=== PATIENT | male | born 1975 | race Caucasian/White ===

== ENCOUNTER → 2020-09-25 14:49 | Outpatient (CLI) | payer OTHER, SELFPAY ==
[2020-09-25 18:30] LABS: Vitamin D,25 Hydroxy 16.9 ng/mL
[2020-09-25 18:48] LABS: Anion Gap 9 (5-15); BUN 16 mg/dL (7-18); BUN/Creat Ratio 14.4 RATIO (10-20); Calcium,Total 8.9 mg/dL (8.5-10.1); Chloride 101 mmol/L (98-107); Cholesterol 241 mg/dL (200); Creatinine, Serum 1.11 mg/dL (0.70-1.30); EST Glomerular Filtration Rate 76 mL/min (>60); Est Glom Filt Rate - Afr Amer 92 mL/min (>60); Glucose 105 mg/dL (74-106); High Density Lipoprotein 41 mg/dL; Potassium 4.2 mmol/L (3.5-5.1); Sodium Level 136 mmol/L (136-145); Thyroid Stim Hormone (TSH) 5.62 uIU/mL (0.358-3.74); Triglycerides 353 mg/dL; Very Low Density Lipoprotein 71 mg/dL (5-40)
== END ==
PROVIDERS: Visit Provider Family Medicine
DX: Z00.00 Encounter for general adult medical examination without abnormal findings (principal)
CPT/HCPCS: 36415; 80048; 80061; 82306; 84403; 84443

== ENCOUNTER → 2020-11-06 15:14 | Outpatient (CLI) | payer OTHER, SELFPAY ==
[2020-11-06 17:45] LABS: T3 Total - Triiodothyronine 1.24 ng/mL (0.6-1.81)
[2020-11-06 17:53] LABS: AST(SGOT) 29 U/L (15-37); Alanine Aminotransfer ALT/SGPT 56 U/L (16-61); Albumin, Serum 3.9 g/dL (3.2-5.0); Alkaline Phosphatase 100 U/L (45-117); Anion Gap 9 (5-15); BUN 11 mg/dL (7-18); BUN/Creat Ratio 10.5 RATIO (10-20); Chloride 102 mmol/L (98-107); Cholesterol 236 mg/dL (200); Creatinine, Serum 1.05 mg/dL (0.70-1.30); EST Glomerular Filtration Rate 81 mL/min (>60); Est Glom Filt Rate - Afr Amer 98 mL/min (>60); Glucose 116 mg/dL (74-106); High Density Lipoprotein 48 mg/dL; Potassium 3.9 mmol/L (3.5-5.1); Protein, Total 7.9 g/dL (6.4-8.2); Sodium Level 135 mmol/L (136-145); T4 Free Direct 1.22 ng/dL (0.76-1.46); Thyroid Stim Hormone (TSH) 1.48 uIU/mL (0.358-3.74); Triglycerides 199 mg/dL; Very Low Density Lipoprotein 40 mg/dL (5-40)
[2020-11-07 15:38] LABS: Free T3 3.3 pg/mL (2.18-3.98)
== END ==
PROVIDERS: Visit Provider Family Medicine
DX: E78.5 Hyperlipidemia, unspecified (principal); E03.9 Hypothyroidism, unspecified
CPT/HCPCS: 36415; 80053; 80061; 84439; 84443; 84480; 84481

== ENCOUNTER 2021-05-08 17:50 | Emergency (ER) | payer OTHER, SELFPAY ==
[2021-05-08 17:53] VITALS: BP 123/107; PULSE 91; RESP 18; TEMP 36.1; O2SAT 100; BMI 32.9
--- NOTE | 2021-05-08 18:25 | ED.RN ---
pt yelling and up in room ripping monitor off. 2 uniform patrol police officer at bedside and full charge bookkeeper aware. pt yelling out have to fucking pee
--- NOTE | 2021-05-08 18:27 | ED.RN ---
pt taking ccollar off and charge master specialist and educated on need to keep collar on for protection or possibility of paralized pt calling nurse a bitch and being belligerent with police officers at bedside
--- NOTE | 2021-05-08 18:59 | CT_ITS ---
STUDY: CT Spine Cervical W/O Contrast Injection 05/08/2021 7:34 PM REASON FOR EXAM: Male, 46 years old. NECK PAIN TECHNIQUE: High resolution transaxial imaging was performed without intravenous administration of contrast material. Sagittal and coronal images were reconstructed. Individualized dose optimization techniques were used for this CT. COMPARISON: None FINDINGS: Normal craniovertebral junction. Normal anterior atlantoaxial articulation. Normal odontoid process. Normal cervical lordosis. Normal vertebral bodies and posterior osseous elements. C2-3: Normal endplates. Normal disc height and morphology. Normal central canal and intervertebral neuroforamina. C3-4: Normal endplates. Normal disc height and morphology. Normal central canal and intervertebral neuroforamina. C4-5: Normal endplates. Normal disc height and morphology. Normal central canal and intervertebral neuroforamina. C5-6: Normal endplates. Normal disc height and morphology. Normal central canal and intervertebral neuroforamina. C6-7: Loss of intervertebral disc height. There is endplate spondylosis of the vertebral body. Normal central canal and intervertebral neuroforamina. There is bilateral facet arthropathy. C7-T1: Normal endplates. Normal disc height and morphology. Normal central canal and intervertebral neuroforamina. Normal visualized soft tissue structures. IMPRESSION: (NOT LISTED IN ORDER OF SIGNIFICANCE) There are no acute findings. Mild degenerative findings at C6-7. Electronically Signed: Bar Perez MD at 19:35 EST , CT/Spine Cervical without Contras
--- NOTE | 2021-05-08 18:59 | CT_ITS ---
STUDY: CT BRAIN WITHOUT CONTRAST REASON FOR EXAM: Male, 46 years old. HEAD AND NECK PAIN ETOH Injury/Pain TECHNIQUE: Transaxial CT imaging of the brain was performed without administration of intravenous contrast material. Individualized dose optimization techniques were used for this CT. COMPARISON: None FINDINGS: Normal calvarium. Normal soft tissues. Normal size ventricles and extra-axial spaces for the patient''s age. Normal white matter tracts of the cerebral hemispheres. Normal basal ganglia and thalami. Normal brainstem. Normal cerebellum. There is no intracranial hemorrhage. There are no findings of an acute ischemic infarction. Sphenoid sinus disease ASPECTS 10 CT/Brain/Head without Contrast IMPRESSION: There are no acute intracranial findings. Electronically Signed: Bar Perez MD at 19:34 EST ,
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
--- NOTE | 2021-05-08 19:45 | ED.RN ---
Patient request for pain med and okay with PO or IM since he took his IV out. Requested from Dr Maharaj. Due to bzo and etoh in his system, we are not medicating him for pain at this time, per Dr Maharaj.
--- NOTE | 2021-05-08 19:58 | NURSING ---
Yuo Mane can be reached for a ride at [phone]
[2021-05-08 20:58] VITALS: BP 153/100; PULSE 74; RESP 22; O2SAT 97
[2021-05-08] MEDS: Ibuprofen 400 MG Tablet PO (21:03)
== END 2021-05-08 21:10 | disposition home or self-care (01) ==
PROVIDERS: Emergency Provider Emergency Medicine; PCP Family Medicine; Visit Provider Emergency Medicine
DX: S16.1XXA Strain of muscle, fascia and tendon at neck level, initial encounter (principal); V49.88XA Car occupant (driver) (passenger) injured in other specified transport accidents, initial encounter; Y93.9 Activity, unspecified; Y92.9 Unspecified place or not applicable; S09.90XA Unspecified injury of head, initial encounter
CPT/HCPCS: 70450; 72125; 99283; A4216

== ENCOUNTER → 2022-04-06 | Outpatient (CLI) | payer MEDICAID, SELFPAY ==
[2022-04-06 13:40] LABS: Absolute Lymphocyte Count 2.64 X10^3/uL (0.83-4.51); Absolute Neutrophil Count 4.1 X10^3/uL (2.0-7.7); Basophil# 0.08 X10^3/uL; Basophil% 1.1 % (0-1); Eosinophil# 0.11 X10^3/uL; Eosinophils% 1.5 % (0-5); Hematocrit 49.3 % (40-54); Hemoglobin 16.2 g/dL (13.0-16.5); Lymphocyte # 2.64 X10^3/ul (0.83-4.51); Lymphocyte % 34.9 % (19-41); Mean Corp Hgb Conc 32.9 g/dL (32-36); Mean Corpuscular Hgb 27.2 pg (27.0-32.0); Mean Corpuscular Volume 82.7 fL (80-94); Mean Platelet Vol. 9.3 fl (6.2-12.0); Monocyte% 7.9 % (0-10); NRBC Flagged by Analyzer 0 % (0-5); Neutrophil # 4.08 X10^3/uL (2.7-7.7); Neutrophil % 53.9 % (47-70); Platelet Count 416 K/mm3 (150-450); RBC Distribution Width CV 14.3 % (11.6-14.6); RBC Distribution Width SD 42.5 fl (35.1-43.9); Red Blood Count 5.96 M/mm3 (4.6-6.2); White Blood Count 7.6 K/mm3 (4.4-11.0)
[2022-04-06 13:59] LABS: Vitamin B12 482 pg/mL (211-911); Vitamin D,25 Hydroxy 17.8 ng/mL
[2022-04-06 14:13] LABS: ALB/GLOB Ratio 0.8 RATIO (0.9-2.4); AST(SGOT) 19 U/L (15-37); Alanine Aminotransfer ALT/SGPT 41 U/L (16-61); Albumin, Serum 3.7 g/dL (3.2-5.0); Alkaline Phosphatase 98 U/L (45-117); Anion Gap 8 (5-15); BUN 14 mg/dL (7-18); BUN/Creat Ratio 14.4 RATIO (10-20); Calcium,Total 9.1 mg/dL (8.5-10.1); Chloride 101 mmol/L (98-107); Cholesterol 246 mg/dL (200); Creatinine, Serum 0.97 mg/dL (0.70-1.30); EST Glomerular Filtration Rate 87 mL/min (>60); Est Glom Filt Rate - Afr Amer 106 mL/min (>60); Globulin 4.4 g/dL (2.2-4.2); Glucose 118 mg/dL (74-106); High Density Lipoprotein 40 mg/dL; Potassium 4.2 mmol/L (3.5-5.1); Protein, Total 8.1 g/dL (6.4-8.2); Sodium Level 136 mmol/L (136-145); T4 Free Direct 0.89 ng/dL (0.76-1.46); Thyroid Stim Hormone (TSH) 3.18 uIU/mL (0.358-3.74); Triglycerides 250 mg/dL; Very Low Density Lipoprotein 50 mg/dL (5-40)
== END | disposition home or self-care (01) ==
LOC: LAB 12:16
PROVIDERS: PCP Family Medicine; Visit Provider Registered Nurse
DX: F41.1 Generalized anxiety disorder (principal)
CPT/HCPCS: 36415; 80053; 80061; 82306; 82607; 82746; 83036; 84439; 84443; 85025

== ENCOUNTER → 2023-01-28 | Outpatient (CLI) | payer BC, SELFPAY ==
[2023-01-28 14:07] LABS: Vitamin D,25 Hydroxy 23.8 ng/mL
[2023-01-28 14:17] LABS: Anion Gap 6 (5-15); BUN 21 mg/dL (7-18); BUN/Creat Ratio 21.9 RATIO (10-20); Calcium,Total 9.1 mg/dL (8.5-10.1); Chloride 104 mmol/L (98-107); Cholesterol 197 mg/dL (200); Creatinine, Serum 0.96 mg/dL (0.70-1.30); EST Glomerular Filtration Rate 89 mL/min (>60); Est Glom Filt Rate - Afr Amer 107 mL/min (>60); Glucose 106 mg/dL (74-106); High Density Lipoprotein 42 mg/dL; Potassium 4.4 mmol/L (3.5-5.1); Sodium Level 135 mmol/L (136-145); Triglycerides 148 mg/dL; Very Low Density Lipoprotein 30 mg/dL (5-40)
== END | disposition home or self-care (01) ==
LOC: MFPLAB 10:37
PROVIDERS: PCP Family Medicine; Visit Provider Family Medicine
DX: Z00.00 Encounter for general adult medical examination without abnormal findings (principal); E55.9 Vitamin D deficiency, unspecified
CPT/HCPCS: 36415; 80048; 80061; 82306

== ENCOUNTER → 2023-04-21 | Outpatient (CLI) | payer BC, SELFPAY ==
--- OUTSIDE RECORDS SUMMARY | 2023-04-21 12:22 | XMS RPT_ITS | CCD ---
Author Name Unknown Address [address] [place] [address] Organization [facility] Results Test Name Value Interpretation Reference Range Facil ity Summary Purpose Family History No Family History Records FoundNo Family History Records FoundNo Family History Records Found Advance Directives No Advanced Directives Records FoundNo Advanced Directives Records FoundNo Advanced Directives Records Found Additional Source Comments (unrecognized sect ion and content) No Status Records FoundNo Status Records FoundNo Status Records Found INFORMATION SOURCE (unrecogn ized section and content) DATE CREATED AUTHOR AUTHOR'S ORGANIZ ATION 05/08/2020 [facility] DATE CREATED AUTHOR AUTHOR'S ORGANIZ ATION 05/10/2020 [employer] FOR RECORDS PERTAINING TO PATIENTS WHO ARE OR HAVE BEEN ENROLLED IN A CHEMICAL DEPENDENCY/SUBSTANCEABUSE PROGRAM, SOME INFORMATION MAY BE OMITTED. This clinical summary was aggregated from multiple sources. Caution should be exercised in using it in the provision of clinical care. This summary normalizes information from multiple sources, and as a consequence, information in this document may materially change the coding, format and clinical context of patient data. In addition, data may be omitted in some cases. CLINICAL DECISIONS SHOULD BE BASED ON THE PRIMARY CLINICAL RECORDS. [facility] [employer] [facility]. provides no warranty or guarantee of the accuracy or completeness of information in this document.
[2023-04-21 16:56] LABS: Free T3 3.3 pg/mL (2.18-3.98); T4 Free Direct 1.01 ng/dL (0.76-1.46); Thyroid Stim Hormone (TSH) 3.72 uIU/mL (0.358-3.74)
== END | disposition home or self-care (01) ==
LOC: MFPLAB 12:02
PROVIDERS: PCP Family Medicine; Visit Provider Family Medicine
DX: E03.9 Hypothyroidism, unspecified (principal)
CPT/HCPCS: 36415; 84439; 84443; 84481

== ENCOUNTER → 2024-05-23 | Outpatient (CLI) | payer BC, SELFPAY ==
[2024-05-23 13:15] LABS: Anion Gap 13 (5-15); BUN 16 mg/dL (4-19); BUN/Creat Ratio 18.8 RATIO (10-20); Calcium 9.4 mg/dL (7.6-11.0); Carbon Dioxide 20.2 mmol/L (22.0-29.0); Chloride 101 mmol/L (96-108); Cholesterol 193 mg/dL (<=200); Creatinine, Serum 0.9 mg/dL (0.8-1.3); EST Glomerular Filtration Rate 105 (>60); Free T3 3.3 pg/mL (2.18-3.98); Glucose 106 mg/dL (70-99); High Density Lipoprotein 37 mg/dL; Low Density Lipoprotein Calc. 122 mg/dL; Sodium Level 135 mmol/L (133-145); Triglycerides 169 mg/dL; Very Low Density Lipoprotein 34 mg/dL (5-40); cholesterol:hdl ratio screen 5.17
== END | disposition home or self-care (01) ==
LOC: MFPLAB 09:57
PROVIDERS: PCP Family Medicine; Referring Provider Family Medicine; Visit Provider Family Medicine
DX: Z00.00 Encounter for general adult medical examination without abnormal findings (principal); E03.9 Hypothyroidism, unspecified
CPT/HCPCS: 36415; 80048; 80061; 84439; 84443; 84481

== ENCOUNTER 2024-06-15 06:32 | Outpatient (CLI) | payer BC, SELFPAY ==
--- NOTE | 2024-06-15 06:35 | CT_ITS ---
PROCEDURE: LOW DOSE CT LUNG SCREENING 06/15/2024 REASON FOR EXAM: SMOKING ADDICTION. Lung cancer screening. 15 pack-year history. TECHNIQUE: Low Dose CT Lung screening without contrast. Coronal and Sagittal reconstruction series were provided. One or more dose reduction techniques were used (e.g., Automated exposure control, adjustment of the mA and/or kV according to patient size, use of iterative reconstruction technique). REFERENCE LINK: [employer] Lung-RADS RADIATION DOSE SUMMARY: DLP: 155.52 mGycm COMPARISON: None available. FINDINGS: Bones/soft tissues: There are moderate degenerative changes of the spine. Age- indeterminate probable chronic mild superior endplate compression of T7 and T11. A few old posterior right rib fracture deformities are present. No acute displaced rib fractures. Upper abdomen: No gross abnormality of the upper abdominal structures is demonstrated, although evaluation is significantly limited on this study. Mediastinum: Evaluation of hilar/vascular/mediastinal structures is limited due to lack of intravenous contrast. Heart is not enlarged. No sizable pericardial effusion. [id number] coronary artery calcifications. No thoracic adenopathy. Thoracic aorta normal in caliber. Central airway clear. Lungs: No focal airspace consolidation, pneumothorax, or pleural effusion. 6 mm noncalcified nodule a anterolateral right upper lobe image 126 of the coronal reformats. There is a 4 mm medial juxtapleural nodule right upper lobe image 113 of the axial images. Lungs are mildly emphysematous. CT/Low Dose CT Lung Screening IMPRESSION: No acute findings in the chest. No thoracic adenopathy. A few small noncalcified right upper lobe nodules are present, the largest at 6 mm. Recommend follow-up lung screening CT in 6 months to document stability. Lung-RADS Category: 3. Probably benign. Reading Location: [facility]
== END 2024-06-15 23:59 | disposition home or self-care (01) ==
LOC: CT 06:34
PROVIDERS: PCP Family Medicine; Referring Provider Family Medicine; Visit Provider Family Medicine
DX: F17.200 Nicotine dependence, unspecified, uncomplicated (principal); R91.8 Other nonspecific abnormal finding of lung field
CPT/HCPCS: 71271

== ENCOUNTER → 2024-11-19 | Outpatient (CLI) | payer BC, SELFPAY ==
[2024-11-19 16:16] LABS: Cholesterol 161 mg/dL (<=200); Free T3 3.7 pg/mL (2.18-3.98); Low Density Lipoprotein Calc. 94 mg/dL; Triglycerides 172 mg/dL; Very Low Density Lipoprotein 34 mg/dL (5-40); cholesterol:hdl ratio screen 5.00
[2024-11-19 16:35] LABS: AST(SGOT) 28 U/L (<=37); Alanine Aminotransfer ALT/SGPT 46 U/L (<=46); Albumin, Serum 4.6 g/dL (3.5-5.0); Alkaline Phosphatase 83 U/L (40-129); Anion Gap 13 (5-15); BUN 15 mg/dL (4-19); BUN/Creat Ratio 16.1 RATIO (10-20); Calcium,Total 9.9 mg/dL (7.6-11.0); Carbon Dioxide 24.8 mmol/L (21.0-32.0); Chloride 101 mmol/L (98-108); Globulin 3.3 g/dL (2.2-4.2); Glucose 88 mg/dL (70-99); Potassium 4.7 mmol/L (3.3-5.1)
== END | disposition home or self-care (01) ==
LOC: MFPLAB 09:49
PROVIDERS: PCP Family Medicine; Referring Provider Family Medicine; Visit Provider Family Medicine
DX: E03.9 Hypothyroidism, unspecified (principal); E78.5 Hyperlipidemia, unspecified
CPT/HCPCS: 36415; 80053; 80061; 84439; 84443; 84481

== ENCOUNTER → 2024-12-06 | Outpatient (CLI) | payer BC, SELFPAY ==
--- NOTE | 2024-12-06 07:57 | CT_ITS ---
PROCEDURE: CHEST WITH CONTRAST 12/06/2024 REASON FOR EXAM: LUNG NODULES TECHNIQUE: Procedure Code: CTCHW Modality: CT Procedure: CHEST WITH CONTRAST Coronal and Sagittal reconstruction series were provided. CONTRAST: Isovue-300 VOLUME: 100 mL One or more dose reduction techniques were used (e.g., Automated exposure control, adjustment of the mA and/or kV according to patient size, use of iterative reconstruction technique). RADIATION DOSE SUMMARY: CTDlvol: 15.8 mGy DLP: 750.94 mGycm COMPARISON: Prior examination dated June 15, 2024. FINDINGS: Hardware: None Lymph nodes: Stable small benign-appearing bilateral axillary lymph nodes. Heart and Vasculature: The heart is nonenlarged. Calcification of the coronary arteries. Lungs and Airways: 5 mm noncalcified nodule in the peripheral lateral aspect of the right upper lobe as seen on axial image number 59 and coronal image number 117. Stable 4 mm noncalcified nodule in the medial aspect of the right upper lobe as seen on axial image number 59. Pleura: No pleural effusion Upper Abdomen: Unremarkable Bones: Healed right lower rib fractures. CT/Chest WITH Contrast IMPRESSION: Coronary artery calcification (CAC) is is present Stable examination. 12 month follow-up recommended. Reading Location: [facility]
== END | disposition home or self-care (01) ==
PROVIDERS: PCP Family Medicine; Referring Provider Family Medicine; Visit Provider Family Medicine
DX: R91.8 Other nonspecific abnormal finding of lung field (principal)
CPT/HCPCS: 71260; Q9967

== ENCOUNTER 2025-02-05 21:52 | Inpatient (IN) | payer BC, SELFPAY ==
[2025-02-05 21:53] VITALS: BP 151/87; PULSE 120; RESP 18; TEMP 36.9; O2SAT 100; BMI 36.7
--- NOTE | 2025-02-05 22:35 | CT_ITS ---
PROCEDURE: ABDOMEN/PELVIS W IV CONT ONLY 02/06/2025 REASON FOR EXAM: RLQ PAIN TECHNIQUE: Procedure Code: [id number] Modality: CT Procedure: ABDOMEN/PELVIS W IV CONT ONLY Coronal and Sagittal reconstruction series were provided. CONTRAST: isovue 370 VOLUME: 100 mL One or more dose reduction techniques were used (e.g., Automated exposure control, adjustment of the mA and/or kV according to patient size, use of iterative reconstruction technique. RADIATION DOSE SUMMARY: CTDI Vol 13.71 mGy DLP :713.64 mGycm COMPARISON: none FINDINGS: Colonic diverticulosis with sigmoid colon diffuse wall thickening with angela- colic fat stranding and mensetric vascular congestions as well as mural thickening of few of its diverticulae, one of them seen along its posterior wall show focal mural ill definition and merging with angela-colic track like collection 4.3 x 1.6 cm in diameter showing relatively thick wall. Thickened appendix reaching 13 mm in diameter and showing mural thickening with submucosal edema/fatty attenuation. The tip of the appendix is seen reaching the midline mesenteric roots associated with extensive surrounding fat stranding and possible focal mural ill definition of its tip seen merging with the forementioned pericolic collection and associated with other few small non encapsulated fluid densities and air loculi extending into the mesenteric roots. Dilated small bowel loops reaching 4 cm in diameter and showing few air/fluid levels with change of caliber at the level of collapsed ileal loops showing diffuse uniform mural thickening and merging with the forementioned pelvic inflammatory changes. Unremarkable stomach. Normal appearance of the urinary bladder. No obvious masses related to the reproductive organs. Average sized liver showing homogenous parenchymal attenuation with fatty changes. No dilated biliary radicles. Distended gall bladder showing no obvious radiodense calculi. Normal appearance of the pancreas with clear surrounding fat planes. The spleen, adrenal glands and IVC are unremarkable. Vascular atheromatous calcifications. Both kidneys are of average size and show smooth outline and preserved parenchymal thickness. No renal calculi. No hydronephrosis. No free intraperitoneal air. Scanned osseous structures show no osseous destruction. Spondylotic changes Scanned lung bases show bilateral basal atelectatic changes, more evident on the right side. CT/Abdomen/Pelvis W IV Cont ONLY IMPRESSION: Findings are suggestive of colonic diverticulosis with diverticulitis and relat ed angela-colic collection/contained perforated diverticulum associated with inflammatory changes of the appendix/ appendicitis with possible perforation of its tip merging with pelvic air loculi and fluid densities. Small bowel obstruction showing change of caliber at the level of collapsed ile al loops showing wall thickening, possibly inflammatory bowel related intestinal obstruction rather than ileus. Advise clinico-laboratory correlation. Reading [facility]
--- NOTE | 2025-02-05 22:41 | EDS_ITS ---
HPI HPI - GI History of Present Illness Chief Complaint: Abd Pain Narrative Narrative: Patient is a 49-year-old male presenting to the emergency department for right lower quadrant abdominal pain that started on Tuesday. Patient has no significant past medical history. Patient denies any past abdominal surgical history. States Tuesday evening he started to have right lower quadrant pain and it stayed constant since. It does not change location. He endorses decreased appetite however no nausea or vomiting. Denies any fever or chills. Denies any dysuria or hematuria. States his last bowel movement was yesterday and was normal. Denies any scrotal pain or swelling. Denies penial discharge. Denies flank pain. [facility] Medical History Alcohol abuse Depression Anxiety Home Medications Medication Instructions Recorded Last Taken Type alprazolam 0.5 mg tablet 0.5 mg PO DAILY PRN anxiety 02/06/25 Unknown History gabapentin 300 mg capsule 300 mg PO QHS 02/06/25 Unkno wn History levothyroxine 50 mcg tablet 50 mcg PO DAILY 02/06/25 U nknown History meloxicam 15 mg tablet 15 mg PO DAILY 02/06/25 Unkn own History rosuvastatin 5 mg tablet 5 mg PO DAILY 02/06/25 Unkno wn History Allergy/AdvReac Type Severity Reaction Status Date / Time No Known Allergies Allergy Verified 02/05/25 21:54 Surgical History H/O lumbar discectomy Social History Smoking Status: Never smoker ROS ROS ED ROS Narrative see HPI EXAM Physical Exam Narrative Exam Narrative: Vital signs: Reviewed General: Alert and oriented x 3. No acute distress HEENT: Head is normocephalic and atraumatic, sinuses nontender, pupils equal round and reactive. Nares are patent. Oropharynx and throat exams normal. Neck: Supple without lymphadenopathy nontender Cardiovascular: Tachycardic rate and regular rhythm, no murmurs. No rubs or gallops. Normal S1 and S2 Respiratory: Clear to auscultation bilaterally. No wheezes, rales, rhonchi Abdominal: Soft and tender to palpation in the right lower quadrant. Normal bowel sounds. No guarding or rebound. Extremities: No tenderness. No bruising. Normal range of motion. Normal sensation. Skin: No rash or redness. Neurological: Cranial nerves II through XII are grossly intact. Normal strength and sensation. Normal cerebellar function The rest of the physical exam is unremarkable Const Vital Signs: 02/05/25 21:53 02/05/25 23:52 Temperature 98.4 F 98.6 F Temperature Source Oral Oral Pulse Rate 120 H 105 H Respiratory Rate 18 16 Blood Pressure 151/87 H 142/86 H Blood Pressure Mean 108 104 Pulse Ox 100 95 Oxygen Delivery Method Room Air MDM MDM MDM Narrative Medical decision making narrative: Patient is a 49-year-old male presenting to the emergency department for right lower quadrant abdominal pain that started on Tuesday. Patient was seen and examined. Vitals are stable, he is mildly tachycardic. Resting in bed comfortably no acute distress. Patient given fluids, morphine and Zofran for symptomatic control. Labs and CT imaging ordered. Differential includes but is not limited to, appendicitis, colitis, UTI. CBC with leukocytosis of 18.8 and normal hemoglobin. CMP with no significant abnormalities. Lipase within normal limits. CT of the abdomen pelvis shows findings are suggestive of colonic diverticulosis with diverticulitis and related angela-colic collection/contained perforated diverticulum associated with inflammatory changes of the appendix/ appendicitis with possible perforation of its tip merging with pelvic air loculi and fluid densities. Small bowel obstruction showing change of caliber at the level of collapsed ileal loops showing wall thickening, possibly inflammatory bowel related intestinal obstruction rather than ileus. Zosyn given. General surgery consulted. I spoke with Dr. Monsalve who will admit to her service. Will likely treat with antibiotics for a few days for the inflammation to partially resolve and then proceed with surgical intervention. Patient was updated on the findings and the plan. Clinical impression: Appendicitis Complicated diverticulitis History & Record Review Discussion w/independent historian: Patient Lab Data Attestation: I reviewed the patient's lab results. Labs: Laboratory Results - last 24 hr 02/05/25 02/06/25 22:57 00:23 WBC 18.8 H RBC 5.58 Hgb 15.0 Hct 45.2 MCV 81.0 MCH 26.9 L MCHC 33.2 RDW Std Deviation 39.2 RDW Coeff of Julian 13.4 Plt Count 370 MPV 9.3 Immature Gran % (Auto) 0.500 Neut % (Auto) 85.0 H Lymph % (Auto) 9.8 L [place] % (Auto) 4.2 Eos % (Auto) 0.2 Baso % (Auto) 0.3 Absolute Neuts (auto) 16.0 H Absolute Lymphs (auto) 1.84 Nucleated RBC % 0 Sodium 129 L Potassium 4.2 Chloride 96 L Carbon Dioxide 19.6 L Anion Gap 14 BUN 13 Creatinine 0.92 Estim Creat Clear Calc 115.30 Est GFR (MDRD) Non-Af 101 BUN/Creatinine Ratio 14.5 Glucose 156 H Calcium 9.2 Total Bilirubin 0.97 AST 15 ALT 22 Alkaline Phosphatase 86 Total Protein 7.9 Albumin 4.1 Globulin 3.8 Albumin/Globulin Ratio 1.1 Lipase 15 Urine Color Yellow Urine Clarity Clear Urine pH 6.5 Ur Specific [place] 1.010 Urine Protein 30 H Urine Glucose (UA) Normal Urine Ketones Negative Urine Occult Blood 25 H Urine Nitrite Negative Urine Bilirubin Negative Urine Urobilinogen Normal Ur Leukocyte Esterase Negative Urine RBC 0-5 SEEN Urine WBC 0-5 SEEN Ur Squamous Epith Cells 0-5 SEEN Urine Bacteria RARE Urine Mucus 0 SEEN Radiography Diagnostic Testing: Clinical Impression(s) from Imaging Studies Abdomen/Pelvis CT 02/05/25 22:35 IMPRESSION: Findings are suggestive of colonic diverticulosis with diverticulitis and related angela-colic collection/contained perforated diverticulum associated with inflammatory changes of the appendix/ appendicitis with possible perforation of its tip merging with pelvic air loculi and fluid densities. Small bowel obstruction showing change of caliber at the level of collapsed ileal loops showing wall thickening, possibly inflammatory bowel related intestinal obstruction rather than ileus. Advise clinico-laboratory correlation. Reading [facility] Discharge Plan Triage Chief Complaint: Abd Pain ED Provider: Annie Cabrera Dx/Rx/DC Orders Prescriptions: No Action alprazolam 0.5 mg tablet 0.5 mg PO DAILY PRN (Reason: anxiety) meloxicam 15 mg tablet 15 mg PO DAILY levothyroxine 50 mcg tablet 50 mcg PO DAILY gabapentin 300 mg capsule 300 mg PO QHS rosuvastatin 5 mg tablet 5 mg PO DAILY Primary Care Provider: Shoaib Bernard Referrals: Shoaib Bernard MD [Primary Care Provider, Family Practice] Print Language: [place]
--- OUTSIDE RECORDS SUMMARY | 2025-02-05 22:47 | XMS RPT_ITS | CCD ---
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 Comment on above: National Cholesterol Education Program (NCEP) guidelines:<40 mg/dL: Low HDL-cholesterol (major risk factor for CHD)>= 60 mg/dL: High HDL-cholesterol (negative risk factor for CHD)HDL-cholesterol is affected by a number of factors, e.g. smoking, exercise, hormones, sex and age. Serum or plasma cholesterol measurement (mass/volume)Ordered By: Shoaib Bernard on 05-23-2024 Cholesterol [Mass/Vol] 193 mg/dL <201 [facility] Comment on above: Cholesterol level, D esirable <200 mg/dLBorderline high cholesterol 200-239 mg/dLHigh cholesterol >=240 mg/dLRecommendations of the NCEP Adult Treatment Panel for the following risk-cutoff thresholds for the [place] population. Serum or plasma potassium me asurementOrdered By: Shoaib Bernard on 05-23-2024 Potassium [Moles/Vol] 4.0 mmol/L 3.3-5.1 [facility] Serum or plasma sodium measu rement (moles/volume)Ordered By: Shoaib Bernard on 05-23-2024 Sodium [Moles/Vol] 135 mmol/L 133-145 [facility] Serum or plasma urea nitroge n measurement (mass/volume)Ordered By: Shoaib Bernard on 05-23-2024 Urea nitrogen [Mass/Vol] 16 mg/dL 4-19 [facility] T4 Free Directon 05-23-2024 T4 FREE DIRECT 1.20 ng/dL Normal 0.76-1.46 [facility] Comment on above: Performed By: #### L 500.4050, L501.76965, L501.9520, L506.0400, L500.4100 #### [facility] [address] [place], [address] T4 freeOrdered By: Shoaib rodriguez on 05-23-2024 Free T4 [Mass/Vol] 1.20 ng/dL 0.76-1.46 [facility] TSH DL <= 0.005 mIU/L QnOrde red By: Shoaib Bernard on 05-23-2024 Thyroid Stimulating Hormone (TSH) 2.580 uIU/mL 0.300-4.200 [facility] Thyroid Stim Hormone (TSH)on 05-23-2024 TSH 2.580 uIU/mL Normal 0.300-4.200 [facility] Comment on above: Performed By: #### L 500.4100, L501.44753, L501.9520, L500.2500, L506.0400 #### [facility] [address] [place], [address] Triglycerides measurementOrd ered By: Shoaib Bernard on 05-23-2024 Triglyceride [Mass/Vol] 169 mg/dL <199 [facility] Comment on above: The drugs N-Acetylcy steine and Metamizole may falsely depress this assay. Normal range: <150 mg/dLBorderline High: 150-199 mg/dLHigh: 200-499 mg/dLVery High: >500 mg/dL Basophil percentageOrdered B y: Shoaib Bernard on 01-28-2023 Chloride [Moles/Vol] 104 mmol/L 98-107 [facility] Cholesterol [Mass/Vol] 197 mg/dL <200 [facility] Comment on above: <200 mg/dL Desirable 200-240 mg/dL Borderline >240 mg/dL High Risk Glucose [Mass/Vol] 106 mg/dL 74-106 [facility] Comment on above: Fasting Glucose resu lt from 100 to 125 mg/dL suggests IMPAIRED HOMEOSTASIS per A.D.A. criteria. Potassium [Moles/Vol] 4.4 mmol/L 3.5-5.1 [facility] Sodium [Moles/Vol] 135 mmol/L 136-145 [facility] Triglyceride [Mass/Vol] 148 mg/dL <199 [facility] Comment on above: The drugs N-Acetylcy steine and Metamizole may falsely depress this assay.Serum Triglycerides Reference Interval Normal <150 mg/dL Borderline high 150 - 199 mg/dL High 200 - 499 mg/dL Very High > or = 500 mg/dL Laboratory - Chemistry and C hemistry - challengeOrdered By: Shoaib Bernard on 01-28-2023 CO2 [Moles/Vol] 25.0 mmol/L 21.0-32.0 [facility] Urea nitrogen/Creatinine [Mass ratio] 21.9 mg/mg 10-20 [facility] No Panel InformationOrdered By: Shoaib Bernard on 01-28-2023 Estimated GFR (MDRD) Amer 107 mL/min >60 [facility] Comment on above: GFR Calc Estimated GFR (MDRD) Non-Af Amer 89 mL/min >60 [facility] Comment on above: Non- GFR Calc Vitamin D 25-Hydroxy 23.8 ng/mL [facility] Comment on above: Vitamin D 25(OH) Sta tus Range Deficiency <20 ng/mL (50nmol/L) Insufficiency 20 - 30 ng/mL (50 - 75 nmol/L) Sufficiency 30 - 100 ng/mL (75 - 250 nmol/L) Toxicity >100 ng/mL (>250 nmol/L) Serum or plasma calcium jessica urement (mass/volume)Ordered By: Shoaib Bernard on 01-28-2023 Calcium [Mass/Vol] 9.1 mg/dL 8.5-10.1 [facility] Serum or plasma cholesterol in HDL measurement (mass/volume)Ordered By: Shoaib Bernard on 01-28-2023 Cholesterol in HDL [Mass/Vol] 42 mg/dL >40 [facility] Comment on above: The drugs N-Acetylcy steine and Metamizole may falsely depress this assay. Reference Range HDL <40 mg/dL Low HDL Cholesterol HDL >or= 60 mg/dL High HDL Cholesterol Serum or plasma cholesterol in VLDL measurement (mass/volume)Ordered By: Shoaib Bernard on 01-28-2023 Cholesterol in VLDL [Mass/Vol] 30 mg/dL 5-40 [facility] Serum or plasma creatinine m easurement (mass/volume)Ordered By: Shoaib Bernard on 01-28-2023 Creatinine [Mass/Vol] 0.96 mg/dL 0.70-1.30 [facility] Comment on above: The validity of the calculated GFR & GFRAA in patients over 70 years has not been determined. Clinical correlation is essential. Serum or plasma low density lipoprotein (LDL) cholesterol measurement (mass/volume)Ordered By: Shoaib Bernard on 01-28-2023 Cholesterol in LDL [Mass/Vol] 125 mg/dL 0-130 [facility] Serum or plasma urea nitroge n measurement (mass/volume)Ordered By: Shoaib Bernard on 01-28-2023 Urea nitrogen [Mass/Vol] 21 mg/dL 7-18 [facility] Thin prep Papanicolaou smear with manual screeningOrdered By: Shoaib Bernard on 01-28-2023 Thin prep Papanicolaou smear with manual screening 6 5-15 [facility] Absolute lymphocyte counton 04-06-2022 Lymphocytes Auto (Unsp spec) [#/Vol] 2.64 10*3/uL 0.83-4.51 [facility] Work Phone: Basophil percentageon 2022 Basophils/100 WBC (Bld) 1.1 % 0-1 [facility] Work Phone: Bilirubin [Mass/Vol] 0.40 mg/dL 0.20-1.00 [facility] Work Phone: Comment on above: For patients on eltr ombopag therapy, use of Dimension [place] TBIL is not recommended. Chloride [Moles/Vol] 101 mmol/L 98-107 [facility] Work Phone: Cholesterol [Mass/Vol] 246 mg/dL <200 [facility] Work Phone: Comment on above: <200 mg/dL Desirable 200-240 mg/dL Borderline >240 mg/dL High Risk Eosinophils/100 WBC (Bld) 1.5 % 0-5 [facility] Work Phone: Glucose [Mass/Vol] 118 mg/dL 74-106 [facility] Work Phone: Comment on above: Fasting Glucose resu lt from 100 to 125 mg/dL suggests IMPAIRED HOMEOSTASIS per A.D.A. criteria. Neutrophils (Bld) [#/Vol] 4.1 10*3/uL 2.0-7.7 [facility] Work Phone: Neutrophils/100 WBC (Bld) 53.9 % 47-70 [facility] Work Phone: Potassium [Moles/Vol] 4.2 mmol/L 3.5-5.1 [facility] Work Phone: Protein [Mass/Vol] 8.1 g/dL 6.4-8.2 [facility] Work Phone: [phone] Sodium [Moles/Vol] 136 mmol/L 136-145 [facility] Work Phone: [phone] Triglyceride [Mass/Vol] 250 mg/dL <199 [facility] Work Phone: [phone] Comment on above: The drugs N-Acetylcy steine and Metamizole may falsely depress this assay.Serum Triglycerides Reference Interval Normal <150 mg/dL Borderline high 150 - 199 mg/dL High 200 - 499 mg/dL Very High > or = 500 mg/dL WBC (Bld) [#/Vol] 7.6 10*3/uL 4.4-11.0 [facility] Work Phone: [phone] Blood erythrocytes count (nu mber/volume)on 04-06-2022 RBC (Bld) [#/Vol] 5.96 10*6/uL 4.6-6.2 [facility] Work Phone: [phone] Blood hemoglobin measurement (mass/volume)on 04-06-2022 Hemoglobin (Bld) [Mass/Vol] 16.2 g/dL 13.0-16.5 [facility] Work Phone: Blood lymphocytes/100 leukoc yteson 04-06-2022 Lymphocytes/100 WBC (Bld) 34.9 % 19-41 [facility] Work Phone: [phone] Blood monocytes/100 leukocyt eson 04-06-2022 Monocytes/100 WBC (Bld) 7.9 % 0-10 [facility] Work Phone: [phone] Blood platelet mean volumeon 04-06-2022 Platelet mean volume (Bld) [Entitic vol] 9.3 fL 6.2-12.0 [facility] Work Phone: [phone] Determination of erythrocyte mean corpuscular volume (MCV)on 04-06-2022 MCV (RBC) [Entitic vol] 82.7 fL 80-94 [facility] Work Phone: [phone] Hematocrit Auto (Bld) [Volum e fraction]on 04-06-2022 Hematocrit (Bld) [Volume fraction] 49.3 % 40-54 [facility] Work Phone: Laboratory - Chemistry and C hemistry - challengeon 04-06-2022 ALP [Catalytic activity/Vol] 98 U/L 45-117 [facility] Work Phone: [phone] ALT [Catalytic activity/Vol] 41 U/L 16-61 [facility] Work Phone: [phone] CO2 [Moles/Vol] 27.0 mmol/L 21.0-32.0 [facility] Work Phone: [phone] Cobalamin (Vitamin B12) [Mass/Vol] 482 pg/mL 211-911 [facility] Work Phone: [phone] Free T4 [Mass/Vol] 0.89 ng/dL 0.76-1.46 [facility] Work Phone: [phone] Globulin (S) [Mass/Vol] 4.4 g/dL 2.2-4.2 [facility] Work Phone: [phone] Urea nitrogen/Creatinine [Mass ratio] 14.4 mg/mg 10-20 [facility] Work Phone: [phone] Laboratory - Hematology and Cell countson 04-06-2022 Erythrocyte distribution width (RBC) [Entitic vol] 42.5 fL 35.1-43.9 [facility] Work Phone: [phone] Erythrocyte distribution width (RBC) [Ratio] 14.3 % 11.6-14.6 [facility] Work Phone: [phone] Immature granulocytes/100 WBC (Bld) 0.700 % 0.0-0.9 [facility] Work Phone: [phone] Comment on above: IG% - Immature Granu locytes (promyelocytes, myelocytes and metamyelocytes) > 1% indicates that a LEFT SHIFT is Present. MCH (RBC) [Entitic mass] 27.2 pg 27.0-32.0 [facility] Work Phone: Nucleated RBC/100 WBC (Bld) [Ratio] 0 % 0-5 [facility] Work Phone: MCHC Auto (RBC) [Mass/Vol]on 04-06-2022 MCHC (RBC) [Mass/Vol] 32.9 g/dL 32-36 [facility] Work Phone: No Panel Informationon 04-06 Estimated GFR (MDRD) Amer 106 mL/min >60 [facility] Work Phone: Comment on above: GFR Calc Estimated GFR (MDRD) Non-Af Amer 87 mL/min >60 [facility] Work Phone: Comment on above: Non- GFR Calc Thyroid Stimulating Hormone (TSH) 3.18 uIU/mL 0.358-3.74 [facility] Work Phone: [phone] Vitamin D 25-Hydroxy 17.8 ng/mL [facility] Work Phone: Comment on above: Vitamin D 25(OH) Sta tus Range Deficiency <20 ng/mL (50nmol/L) Insufficiency 20 - 30 ng/mL (50 - 75 nmol/L) Sufficiency 30 - 100 ng/mL (75 - 250 nmol/L) Toxicity >100 ng/mL (>250 nmol/L) Platelets bldon 04-06-2022 Platelets (Bld) [#/Vol] 416 10*3/uL 150-450 [facility] Work Phone: [phone] Serum or plasma albumin jessica urement (mass/volume)on 04-06-2022 Albumin [Mass/Vol] 3.7 g/dL 3.2-5.0 [facility] Work Phone: [phone] Serum or plasma albumin/glob ulin mass ratioon 04-06-2022 Albumin/Globulin [Mass ratio] 0.8 {ratio} 0.9-2.4 [facility] Work Phone: [phone] Serum or plasma calcium jessica urement (mass/volume)on 04-06-2022 Calcium [Mass/Vol] 9.1 mg/dL 8.5-10.1 [facility] Work Phone: [phone] Serum or plasma cholesterol in HDL measurement (mass/volume)on 04-06-2022 Cholesterol in HDL [Mass/Vol] 40 mg/dL >40 [facility] Work Phone: Comment on above: The drugs N-Acetylcy steine and Metamizole may falsely depress this assay. Reference Range HDL <40 mg/dL Low HDL Cholesterol HDL >or= 60 mg/dL High HDL Cholesterol Serum or plasma cholesterol in VLDL measurement (mass/volume)on 04-06-2022 Cholesterol in VLDL [Mass/Vol] 50 mg/dL 5-40 [facility] Work Phone: [phone] Serum or plasma creatinine m easurement (mass/volume)on 04-06-2022 Creatinine [Mass/Vol] 0.97 mg/dL 0.70-1.30 [facility] Work Phone: Comment on above: The validity of the calculated GFR & GFRAA in patients over 70 years has not been determined. Clinical correlation is essential. Serum or plasma folate measu rement (mass/volume)on 04-06-2022 Folate [Mass/Vol] 15.60 ng/mL 3.1-55.4 [facility] Work Phone: Serum or plasma low density lipoprotein (LDL) cholesterol measurement (mass/volume)on 04-06-2022 Cholesterol in LDL [Mass/Vol] 156 mg/dL 0-130 [facility] Work Phone: Serum or plasma urea nitroge n measurement (mass/volume)on 04-06-2022 Urea nitrogen [Mass/Vol] 14 mg/dL 7-18 [facility] Work Phone: Thin prep Papanicolaou smear with manual screeningon 04-06-2022 Thin prep Papanicolaou smear with manual screening 19 U/L 15-37 [facility] Work Phone: [phone] Thin prep Papanicolaou smear with manual screening 8 5-15 [facility] Work Phone: [phone] Whole blood hemoglobin A1c/t otal hemoglobin ratio (mass fraction)on 04-06-2022 HbA1c (Bld) [Mass fraction] 6.0 % 3.8-5.6 [facility] Work Phone: Comment on above: Normal < 5.7 % Predi abetic 5.7 - 6.4 % Diabetic >or= 6.5 % Please note range changes. [facility]on 05-08-2020 Initial Visit (Orthopaedic Surgery) Diagnoses/Problems Assessed Other closed fracture of distal end of right fibula, initial encounter (824.8) (S82.920Y) Orders Other closed fracture of distal end of right fibula, initial encounter Start: traMADol HCl - 50 MG Oral Tablet; Take 1 tablet every 4 hours Xray Ankle 2 View; Status:Hold For - Scheduling; Requested for:[id number]; Laterality : Right Radiologist to Determine Optimal Study : Y What are the patient's signs and symptoms? : fibula fracture Provider Impressions assessment: right distal fibula fracture plan: today, we discussed treatment options and since he has been walking on the ankle for about 2 weeks and maintaining decent alignment, Dr. Collado and I feel he can continue with conservative management in a cast. Short leg waterproof fiberglass cast was applied without complications. he will continue NWB status with crutches, elevation. will see in 4 weeks for repeat eval and xrays. i did prescribe tramadol for pain relief and he will take only as needed. he will remain off work until next appointment. Chief Complaint PT HERE FOR RIGHT ANKLE FX. STATES INJURY APPROX 2 WEEKS AGO. WAS OUTSIDE SHOVELING AND FELL, ROLLING ANKLE. PAIN AND SWELLING. DOES HAVE CRUTCHES. XRAYS. REFERRED BY [facility]. History of Present Illness Pt here for evaluation of his right fibular fracture that occurred about 2 weeks ago. he is a 45 year old male who was shoveling snow and twisted his ankle. he assumed it was a sprain and continuing activity and working. he continued to have pain so reported to ED where xrays were performed to show a fracture. he locates the pain to the lateral side and utilizing ibuprofen as needed for pain. he is requesting something a little stronger. he denies pain in any other extremity. he mentions history of frequent ankle sprains. Review of Systems Constitutional: no fever, no chills, not feeling tired, no recent weight gain and no recent weight loss. ENT: no nosebleeds. Cardiovascular: no chest pain. Respiratory: no shortness of breath and no cough. Gastrointestinal: no abdominal pain, no nausea, no diarrhea and no vomiting. Musculoskeletal: no arthralgias. Integumentary: no rashes and no skin wound. Neurological: no headache. Psychiatric: no depression and no sleep disturbances. Endocrine: no muscle cramps. Hematologic/Lymphatic: no swollen glands and no tendency for easy bruising. All other systems have been reviewed and are negative for complaint. Past Medical History Problems History of back pain (V13.59) (Z87.39) Surgical History Problems History of Back surgery Family History Mother Family history of malignant neoplasm (V16.9) (Z80.9) Parents (V62.82) (Z63.4) Social History Problems Current smoker (305.1) (F17.200) No advance directives (V49.89) (Z78.9) Allergies No Known Drug Allergies Recorded By: Isi Galicia; 05/08/2020 11:14:33 AM Current Meds Medication NameInstruction Ibuprofen TABS Vitals Vital Signs Recorded: 08May2020 11:11AM Usfjyepsrsf66.7 F Mjczaftp327 Yeosipgsx68 Height5 ft 10 in Bszoiw489 lb 2 oz BMI Xrhmjpvoey34.28 BSA Calculated2.04 Physical Exam RLE is NVI, ROM deferred, positive swelling in ankle and foot. nontender metatarsal and base of 5th metatarsal, nontender rmedial malleolus, mild tenderness deltoid ligament, exquisite tenderness distal fibula. negative lower leg swelling, negative posterior calf tenderness. Results/Data Xray Ankle 3 [id number] 08:32AMNon Ambulatory, Provider Ordering Provider: RHONDA MAJOR [id number] Test NameResultFlagReference Xray Ankle 3 View(Report) Interpreted by: AVERY JACKSON 05/07/20 09:30 STUDY: Ankle Radiographs; 05/07/2020 8:05 AM INDICATION: Continued pain and bruising to right ankle post twisting injury 1 1/2 weeks ago. COMPARISON: None Available. ACCESSION NUMBER(S): [id number] ORDERING CLINICIAN: RHONDA MAJOR TECHNIQUE: Three view(s) of the right ankle. FINDINGS: There is a comminuted primarily oblique transverse fracture of the distal fibula at the level of syndesmosis, with soft tissue edema. The alignment is anatomic. Ankle joint effusion is seen. IMPRESSION: Comminuted oblique transverse fracture of the distal fibula at the level of syndesmosis. Signed by Avery Jackson MD Electronically signed by: AVERY JACKSON 05/07/20 09:30 Signatures Electronically signed by : Arin Acosta PA-C; May 08 2020 12:55PM EST (Author) Normal Touchworks ANKLE, COMPLETE, MIN 3 VIEWS on 05-07-2020 ANKLE, COMPLETE, MIN 3 VIEWS STUDY: Ankle Radiographs; 05/07/2020 8:05 AM INDICATION: Continued pain and bruising to right ankle post twisting injury 1 1/2 weeks ago. COMPARISON: None Available. ACCESSION NUMBER(S): [id number] ORDERING CLINICIAN: RHONDA MAJOR TECHNIQUE: Three view(s) of the right ankle. FINDINGS: There is a comminuted primarily oblique transverse fracture of the distal fibula at the level of syndesmosis, with soft tissue edema. The alignment is anatomic. Ankle joint effusion is seen. IMPRESSION: Comminuted oblique transverse fracture of the distal fibula at the level of syndesmosis. Signed by Avery Jackson MD Electronically signed by: AVERY JACKSON MD [facility] Provider Note - ED v2on 04-28 Provider Note - ED v2 Provider Note - ED v2: Chart Review: HISTORY OF PRESENTING ILLNESS [place] is a 45 year old Male and was seen by me at 07-May-2020 08:15. Triage Information: Most recent Vital Sign Value Date PAST MEDICAL HISTORY ATTESTATION: I have reviewed and confirmed nurse's/medic's notes for patient's medications, allergies, and medical, surgical, family and social history ALLERGIES/INTOLERANCES: No Known Allergies HEALTH HISTORY: No documented data. OUTPATIENT MEDICATIONS: Home Medications Review Status for Reconciliation: Complete Med Status: No Current Medications SIGNIFICANT EVENTS: No documented data. RESULTS/VITAL SIGNS VITAL SIGNS: T PRBP SpO2O2(LPM) %FiO2 Method 07-May-2020 08:22:[id number] 97 MEDICAL DECISION MAKING/ED COURSE MDM/ED COURSE: This note was generated with voice recognition software and may contain errors including spelling, grammar, syntax, and misrecognization of what was dictated Chief Complaint Right ankle pain History of Present Illness Patient presents with an approximate 10-12 day history of right ankle pain after injuring himself on ice. Patient states he has had persisting pain and has worked on his ankle and it has "killed him". Patient states he has several sprained ankles in the past but they have usually resolve during this time line and that is why he presents for evaluation. Patient denies use of any [id number] medications at home for symptom management has been wrapping the ankle for some support. Review of Systems 10 systems reviewed negative with exception of history of present illness listed above Physical Examination General: Alert and oriented, No acute distress. Eye: Pupils are equal, round and reactive. HENT: Normocephalic Neck: Supple Respiratory: Respirations are non-labored, Symmetrical chest wall expansion Musculoskeletal: Decreased range of motion and strength to the right ankle when compared to the left. There is lateral malleolus swelling and tenderness on palpation to the right ankle Integumentary: [place], warm, dry, and Intact. Neurologic: Alert, Oriented, Normal sensory, Normal motor function. Cognition and Speech: Oriented, Speech clear and coherent. Psychiatric: Cooperative, Appropriate mood & affect. Medical Decision Making Course: Worsening Problem: Right ankle pain Data reviewed/analyzed: And x-ray of the right ankle reveals a fracture Risk: Low Problems addressed: 5" Ortho-Glass was used to splint patient's right ankle, crutches were fitted, and he was instructed to remain nonweightbearing until seen by an orthopedic surgeon. A copy of patient's x-ray was sent home with him and he agrees with plan of care, questions were encouraged and answered. Education: [] CLINICAL IMPRESSION Diagnosis/Annotation: ED Dx Name:Fracture of right ankle Code:S82.891A Disposition: discharged Type: home ATTESTATION CRITICAL CARE TIME Is this a critically ill patient: no Electronic Signatures: Rhonda Major ([employer] TECHNICIAN-BALL SORTER) (Signed 07-May-2020 08:56) Authored: HPI, PMH, PE, Results/Vital Signs, MDM/ED Course, Clinical Impression, Attestation, Chart Review, Scores Last Updated: 07-May-2020 08:56 by Rhonda Major (ALTERNATIVE ENERGY TECHNICIAN-BALL SORTER) [facility] OBSOLETEon 10-20-2019 OBSOLETE Refill (FAMPWS) -- VIRGINIA PRABHAKAR ([id number]) 1975 M Date Time Provider Department 10/20/19 CHANTAL GUNTER During your visit today, we recorded the following information about you: Dorene Meadows Ma 10/22/2019 9:27 AM Signed Last office visit: 08/22/2018 F/u scheduled: no follow up Last refilled: Trazodone #30 with 5 refills on 08/22/18 Dorene Allison APRN.BALL SORTER 10/22/2019 10:59 AM Signed Script sent. Due for an appointment ([id number] or virtual). Please let patient know. Neetu Allison APRN.BALL SORTER Nini Calix MA, MA 10/22/2019 11:17 AM Signed Sent message via my chart. Nini Calix MA Allergies As of Date: 10/20/2019 (No Known Allergies) Date Reviewed: 08/22/2018 Reviewed by: Tonia Arteaga LPN - Fully Assessed Reason for Visit: Refill Request [94] Visit Diagnosis:Chronic insomnia [F51.04] Order(s):traZODone (DESYREL) 50 mg tabletTake 1 tablet by mouth daily at bedtime.Disp: 30 tabletRfl: 1 Prescriptions as of 10/20/2019 Sig: TRAZODONE 50 MG TABLET Take 1 tablet by mouth daily * SILDENAFIL 50 MG TABLET Use as directed q day prn. MELATONIN 10 MG CAPSULE Take by mouth. Problem List As Of Date: 10/20/2019 (None) Prescriptions ordered this encounter Disp Refills Start End TRAZODONE 50 MG TABLET 30 t* 1 10/22/2019 Route: ORAL Sig: Take 1 tablet by mouth daily at bedtime. Medications Discontinued During This Encounter traZODone (DESYREL) 50 mg tablet 30 t* 5 08/22/2018 10/22/2019 Class: Print RX Route: ORAL Sig: Take 1 tablet by mouth daily at bedtime. Disc: Reason for discontinue is not on file. Encounter Status:Closed by NINI CALIX on 10/22/19 [facility] OBSOLETEon 05-23-2019 OBSOLETE Refill (FAMPWS) -- VIRGINIA PRABHAKAR ([id number]) 1975 M Date Time Provider Department 05/23/19 CHANTAL GUNETR During your visit today, we recorded the following information about you: Meghan Richardson Ma 05/23/2019 2:05 PM Signed Patient has been identified by name and date of : Yes Pending Prescriptions Disp Refills SILDENAFIL 50 MG TABLET 6 tablet 3 Sig: Use as directed q day prn. MAURILIO: No RX INSTRUCTIONS: Pharmacy initiated this request. No need to notify patient. Meghan Richardson Ma Allergies As of Date: 05/23/2019 (No Known Allergies) Date Reviewed: 08/22/2018 Reviewed by: Tonia Arteaga LPN - Fully Assessed Reason for Visit: Refill Request [94] Visit Diagnosis:Erectile dysfunction, unspecified erectile dysfunction type [N52.9] Order(s):sildenafil (VIAGRA) 50 mg tabletUse as directed q day prn.Disp: 6 tabletRfl: 3 Prescriptions as of 05/23/2019 Sig: SILDENAFIL 50 MG TABLET Use as directed q day prn. MELATONIN 10 MG CAPSULE Take by mouth. TRAZODONE 50 MG TABLET Take 1 tablet by mouth daily * Problem List As Of Date: 05/23/2019 (None) Prescriptions ordered this encounter Disp Refills Start End SILDENAFIL 50 MG TABLET 6 ta* 3 05/23/2019 Sig: Use as directed q day prn. Medications Discontinued During This Encounter sildenafil (VIAGRA) 50 mg tablet 6 ta* 3 08/22/2018 05/23/2019 Class: Print RX Sig: Use as directed q day prn. Disc: Reason for discontinue is not on file. Encounter Status:Closed by CHANTAL GUNTER MD on 05/23/19 Normal [facility] Encounters Encounter Date Encounter Type Care Provider Facility Start: 12-06-2024 End: 12-06-[address] Shoaib Bernard MD Work Phone: -Cat [facility] Start: 12-06-2024 End: 12-06-[address] Shoaib Bernard MD -Cat [facility] Work Phone: Start: 12-06-2024 End: 12-06-2024 ambulatory Shoaib Bernard Facility:[facility] Start: 11-19-2024 End: 11-19-[address] Shoaib Bernard MD Work Phone: -Laboratory [facility] Start: 11-19-2024 End: 11-19-[address] Shoaib Bernard MD -Laboratory [facility] Start: 11-19-2024 End: 11-19-2024 ambulatory Shoaib Bernard Facility:[facility] Start: 06-15-2024 End: 06-15-[address] Shoaib Bernard MD -Cat Scan, [facility] Work Phone: Start: 06-15-2024 End: 06-15-[address] Shoaib Bernard MD Work Phone: [facility] Work Phone: Start: 06-06-2024 Encounter for genera l adult medical examination without abnormal findings Shoaib Bernard [facility] Start: 05-23-2024 End: 05-23-[address] Shoaib Bernard MD Work Phone: [facility] Work Phone: Start: 05-23-2024 End: 05-23-[address] [facility] Start: 05-23-2024 End: 05-23-2024 ambulatory Shoaib Bernard Facility:[facility] Start: 01-28-2023 End: 01-28-2023 ambulatory [facility] Work Phone: Start: 01-28-2023 End: 01-28-2023 Patient encounter procedure [facility]-Laboratory, [facility] Start: 04-06-2022 End: 04-06-2022 ambulatory [facility] Work Phone: Start: 04-06-2022 End: 04-06-2022 Patient encounter procedure [facility]-Laboratory Procedures Date Procedure Procedure Detail Performing Clinician Start: 12-06-2024 CT of thorax with contrast Dr. Shoaib Bernard MD Work Phone: Start: 06-15-[address] Shoaib jovel MD Work Phone: Payers Date Payer Category Payer Self-pay [id number] 2024 Unknown [id number] Medicaid [id number] ANTHEM [id number] Unknown [id number] Unknown [id number] Unknown [id number] Unknown [id number] Unknown [id number] [id number] [id number] Social History Date Type Detail Facility [facility]: [facility] Start: 1975 Sex Assigned At Male [facility] Start: 05-08-2021 Tobacco smoking stat us [facility] Never smoked tobacco (finding) [facility] Start: 06-06-2024 End: 06-22-2024 Sex Male (finding) [facility] Sex Male [facility] Radiology Diagnostic study note 12-07-2024 Note Date & Type Note Facility 12-07-2024 Radiology Diagnostic study note [facility] Imaging Services [address] [place] [address] Chest WITH Contrast MR#: [id number] Acct: [id number] Name: VIRGINIA PRABHAKAR Rep #: [id number] : 1975 M 49 From: Marvin Brown MD PCP: Dr. Shoaib Bernard MD Status: TOREY MARINA Study:Chest WITH Contrast Date of Exam: 12/06/24 Exam# [id number] Ordering Dr: Shoaib Bernard MD PROCEDURE: CHEST WITH CONTRAST 12/06/2024 REASON FOR EXAM: LUNG NODULES TECHNIQUE: Procedure Code: CTCHW Modality: CT Procedure: CHEST WITH CONTRAST Coronal and Sagittal reconstruction series were provided. CONTRAST: Isovue-300 VOLUME: 100 mL One or more dose reduction techniques were used (e.g., Automated exposure control, adjustment of the mA and/or kV according to patient size, use of iterative reconstruction technique). RADIATION DOSE SUMMARY: CTDlvol: 15.8 mGy DLP: 750.94 mGycm COMPARISON: Prior examination dated June 15, 2024. FINDINGS: Hardware: None Lymph nodes: Stable small benign-appearing bilateral axillary lymph nodes. Heart and Vasculature: The heart is nonenlarged. Calcification of the coronary arteries. Lungs and Airways: 5 mm noncalcified nodule in the peripheral lateral aspect of the right upper lobe as seen on axial image number 59 and coronal image number 117. Stable 4 mm noncalcified nodule in the medial aspect of the right upper lobe as seen on axial image number 59. Pleura: No pleural effusion Upper Abdomen: Unremarkable Bones: Healed right lower rib fractures. CT/Chest WITH Contrast IMPRESSION: Coronary artery calcification (CAC) is is present Stable examination. 12 month follow-up recommended. Reading Location: [id number] CC: Dr. Shoaib Bernard MD ~ Hall Cleaner: Signed [facility] Radiology Diagnostic study note 06-15-2024 Note Date & Type Note Facility 06-15-2024 Radiology Diagnostic study note [facility] Imaging Services [address] [place] [address] Lung Screening MR#: [id number] Acct: [id number] Name: VIRGINIA PRABHAKAR Rep #: [id number] : 1975 M 49 From: And poncho Apodaca DO PCP: Dr. Shoaib Bernard MD Status: REG Alfredo MARINA Study:Low Dose CT Lung Screening Date of Exam : 06/15/24 Exam# [id number] Ordering Dr: Shoaib Bernard MD PROCEDURE: LOW DOSE CT LUNG SCREENING 06/15/2024 REASON FOR EXAM: SMOKING ADDICTION. Lung cancer screening. 15 pack-year history. TECHNIQUE: Low Dose CT Lung screening without contrast. Coronal and Sagittal reconstructionseries were provided. One or more dose reduction techniques were used (e.g., Automated exposure control, adjustment of the mA and/or kV according to patient size, use of iterative reconstruction technique). REFERENCE LINK: 51edj Lung-RADS RADIATION DOSE SUMMARY: DLP: 155.52 mGycm COMPARISON: None available. FINDINGS: Bones/soft tissues: There are moderate degenerative changes of the spine. Age-indeterminate probable chronic mild superior endplate compression of T7 and T11. A few old posterior right rib fracture deformities are present. No acute displaced rib fractures. Upper abdomen: No gross abnormality of the upper abdominal structures is demonstrated, although evaluation is significantly limited on this study. Mediastinum: Evaluation of hilar/vascular/mediastinal structures is limited due to lack of intravenous contrast. Heart is not enlarged. No sizable pericardial effusion. Fxme-ji-hjlhioik coronary artery calcifications. No thoracic adenopathy. Thoracic aorta normal in caliber. Central airway clear. Lungs: No focal airspace consolidation, pneumothorax, or pleural effusion. 6 mmnoncalcified nodule a anterolateral right upper lobe image 126 of the coronal reformats. There is a 4 mm medial juxtapleural nodule right upper lobe image 113 of the axial images. Lungs are mildly emphysematous. CT/Low Dose CT Lung Screening IMPRESSION: No acute findings in the chest. No thoracic adenopathy. A few small noncalcified right upper lobe nodules are present, the largest at 6 mm. Recommend follow-up lung screening CT in 6 months to document stability. Lung-RADS Category: 3. Probably benign. Reading Location: [facility] CC: Dr. Shoaib Bernard MD ~ Hall Cleaner: Signed [facility] Evaluation note Note Date & Type Note Facility Evaluation note No assessment information availa ble [facility] Work Phone: Reason for referral (narrative) Note Date & Type Note Facility Reason for referral (narrative) No reason for referral information available [facility] Work Phone: Summary Purpose Family History No Family History Records FoundNo Family History Records FoundNo Family History Records FoundNo Family History Records Found Advance Directives Advance Directive Response Recorded Date/ Time Living Will No May 08 6:26pm Power of Collar Baster Jumpbasting No May 08, 2021 6:26pm Chief Complaint and Reason for Visit Chief Complaint Admit Date SMOKING ADDICTION June 15, 2024 6:3 2am Chief Complaint Admit Date LUNG NODULES December 06, 2024 7:50am Additional Source Comments (unrecognized sect ion and content) No Status Records FoundNo Status Records FoundNo Status Records FoundNo Status Records Found INFORMATION SOURCE (unrecogn ized section and content) DATE CREATED AUTHOR 10/22/2019 [facility] DATE CREATED AUTHOR AUTHOR'S ORGANIZ ATION 05/08/2020 [facility] DATE CREATED AUTHOR AUTHOR'S ORGANIZ ATION 05/10/2020 [employer] DATE CREATED AUTHOR AUTHOR'S ORGANIZ ATION 12/20/2024 [facility] Goals (unrecognized section and content) Goals may be documented in a n alternate sectionGoals may be documented in an alternate sectionGoals may be documented in an alternate sectionGoals may be documented in an alternate sectionGoals may be documented in an alternate sectionGoals may be documented in an alternate section Care Teams (unrecognized sec tion and content) Team Status: Active Member Role Status Dates Dr. Shoaib Bernard MD Primary Care Provider Active Team Status: Inactive Member Role Status Dates Dr. Shoaib Bernard MD Primary Care Provider, Attending Provider Active Team Status: Inactive Member Role Status Dates Dr. Shoaib Bernard MD Primary Care Provider Active Start: May 23, 2024 End: May 23, 2024 Dr. Shoaib Bernard MD Attending Provider Active Start: May 23, 2024 End: May 23, 2024 Dr. Shoaib Bernard MD Referring Provider Active Start: May 23, 2024 End: May 23, 2024 Team Status: Inactive Member Role Status Dates Dr. Shoaib Bernard MD Primary Care Provider Active Start: June 15, 2024 End: June 15, 2024 Dr. Shoaib Bernard MD Attending Provider Active Start: June 15, 2024 End: June 15, 2024 Dr. Shoaib Bernard MD Referring Provider Active Start: June 15, 2024 End: June 15, 2024 Team Status: Active Member Role/Relationship Status Dates Dr. Shoaib Bernard MD Primary Care Provider Active Team Status: Inactive Member Role/Relationship Status Dates Dr. Shoaib Bernard MD Primary Care Provider Active Start: November 19, 2024 End: November 19, 2024 Dr. Shoaib Bernard MD Attending Provider Active Start: November 19, 2024 End: November 19, 2024 Dr. Shoaib Bernard MD Referring Provider Active Start: November 19, 2024 End: November 19, 2024 Team Status: Active Member Role/Relationship Status Dates Dr. Shoaib Bernard MD Primary care physician Active Team Status: Inactive Member Role/Relationship Status Dates Dr. Shoaib Bernard MD Primary care physician Active Start: November 19, 2024 End: November 19, 2024 Dr. Shoaib Bernard MD Attending physician Active Start: November 19, 2024 End: November 19, 2024 Dr. Shoaib Bernard MD Referring Provider Active Start: November 19, 2024 End: November 19, 2024 Team Status: Inactive Member Role/Relationship Status Dates Dr. Shoaib Bernard MD Primary care physician Active Start: December 06, 2024 End: December 06, 2024 Dr. Shoaib Bernard MD Attending physician Active Start: December 06, 2024 End: December 06, 2024 Dr. Shoaib Bernard MD Referring Provider Active Start: December 06, 2024 End: December 06, 2024 FOR RECORDS PERTAINING TO PATIENTS WHO ARE [...] BE BASED ON THE PRIMARY CLINICAL RECORDS. [facility] [facility]. provides no warranty or guarantee of the accuracy or completeness of information in this document.
[2025-02-05] MEDS: 0.9% Normal Saline (1000mL) 1,000 ML 999 ML IV (22:53)
[2025-02-05 23:04] LABS: Hematocrit 45.2 % (40-54); Hemoglobin 15.0 g/dL (13.0-16.5); Immature Granulocytes Count 0.090 X10^3/uL (0.0-0.0); Mean Corp Hgb Conc 33.2 g/dL (32-36); Mean Corpuscular Volume 81.0 fL (80-94); Mean Platelet Vol. 9.3 fl (6.2-12.0); NRBC Flagged by Analyzer 0 % (0-5); Platelet Count 370 K/mm3 (150-450); RBC Distribution Width CV 13.4 % (11.6-14.6); RBC Distribution Width SD 39.2 fl (35.1-43.9); Red Blood Count 5.58 M/mm3 (4.6-6.2); White Blood Count 18.8 K/mm3 (4.4-11.0)
[2025-02-05 23:40] LABS: AST(SGOT) 15 U/L (<=37); Alanine Aminotransfer ALT/SGPT 22 U/L (<=46); Albumin, Serum 4.1 g/dL (3.5-5.0); Alkaline Phosphatase 86 U/L (40-129); Anion Gap 14 (5-15); BUN 13 mg/dL (4-19); BUN/Creat Ratio 14.5 RATIO (10-20); Calcium,Total 9.2 mg/dL (7.6-11.0); Carbon Dioxide 19.6 mmol/L (21.0-32.0); Chloride 96 mmol/L (98-108); Estimated Creatinine Clearance 115.30 ml/min (50-250); Globulin 3.8 g/dL (2.2-4.2); Glucose 156 mg/dL (70-99); Lipase 15 U/L (13-75); Potassium 4.2 mmol/L (3.3-5.1)
[2025-02-05 23:52] VITALS: BP 142/86; PULSE 105; RESP 16; TEMP 37; O2SAT 95
[2025-02-06] VITALS (7 sets, daily range): BP systolic 135–159; BP diastolic 83–92; PULSE 75–109; RESP 16–20; TEMP 36.7–36.9; O2SAT 94–96; BMI 36.5
[2025-02-06] MEDS: Piperacil/Tazobactam 3.375 GM in 0.9% Normal Saline (50mL MB+) 50 ML IV ×4 (00:16→20:52)
[2025-02-06 00:30] LABS: Mucous, Urine 0 SEEN /hpf (<or=2+)
[2025-02-06 00:34] LABS: Color, Urine Yellow (Yellow); Glucose, Dipstick Normal (Normal); Ketone-Dipstick Negative (Negative); Leukocyte Esterase-Dipstick Negative /ul (Negative); Nitrite-Dipstick Negative (Negative); Occult Blood-Urine 25 /ul (Negative); Protein-Dipstick 30 mg/dl (Negative); Specific Gravity, Urine 1.010 (1.002-1.030); Urine Bilirubin Dipstick Negative (Negative)
[2025-02-06 00:46] LABS: Red Blood Cells-Urine 0-5 SEEN /hpf (0-5); Squamous Epithelial Cells - UA 0-5 SEEN /hpf (0-5)
--- OUTSIDE RECORDS SUMMARY | 2025-02-06 01:04 | XMS RPT_ITS | CCD ---
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 Cramer Primary Care Provider Joana HART, Dr. Cramer Attending Provider Joana HART, Dr. Cramer Referring Provider Shoaib [...] Joana HART, Dr. Cramer Primary Care Physician Joana HART, Dr. Cramer Attending Physician Joana HART, Dr. Cramer Referring Provider [phone] Problems Problem Classification Problem Date Documented Da [...] Chest WITH Contraston 2024 Chest WITH Contrast [facility] Imaging Services [address] [place], [place] [address] Chest WITH Contrast MR#: [id number] Acct: [id number] Name: VIRGINIA PRABHAKAR Rep #: [id number] : 1975 M 49 From: Pavel vasques MD PCP: Dr. Shoaib Bernard MD Status: REG CLI Study: Chest WITH Contrast Date of Exam: 12/06/24 Exam# [id number] Ordering Dr: Shoaib Bernard MD PROCEDURE: CHEST [...] examination. 12 month follow-up recommended. Reading Location: [id number] CC: Dr. Shoaib Bernard MD Furniture Removalist: Signed Normal [facility] Anion gap in Serum or Plasma Ordered By: Shoaib Bernard on 11-19-2024 Anion gap [Moles/Vol] 13 mmol/L 5-15 [facility] BUN/creatinine ratioOrdered By: Shoaib Bernard on 11-19-2024 Urea nitrogen/Creatinine [Mass ratio] 16.1 mg/mg 10-20 [facility] Bilirubin, totalOrdered By: Shoaib Bernard on 11-19-2024 Bilirubin [Mass/Vol] 0.56 mg/dL 0.00-1.30 [facility] Calculated very low density lipoprotein (VLDL) cholesterol measurementOrdered By: Shoaib Bernard on 11-19-2024 Calculated very low density lipoprotein (VLDL) cholesterol measurement 34 mg/dL 5-40 [facility] Carbon dioxide, total [Moles /volume] in Central venous bloodOrdered By: Shoaib Bernard on 11-19-2024 CO2 [Moles/Vol] 24.8 mmol/L 21.0-32.0 [facility] Chloride assayOrdered By: Walt Bernard on 11-19-2024 Chloride [Moles/Vol] 101 mmol/L 98-108 [facility] Comprehensive Metabolic Prof ilon 11-19-2024 Albumin [Mass/Vol] 4.6 g/dL Normal 3.5-5.0 [facility] Comment on above: Performed By: #### L 500.4050, L501.25374, L501.9520, L506.0400, L500.4100 #### [facility] [address] [place], [place], [phone] Albumin/Globulin [Mass ratio] 1.4 {ratio} Normal 0.9-2.4 [facility] Comment on above: Performed By: #### L 500.4050, L501.56017, L501.9520, L506.0400, L500.4100 #### [facility] [address] [place], [address] ALK PHOS 83 U/L Normal 40-129 [facility] Comment on above: Performed By: #### L 500.4050, L501.76173, L501.9520, L506.0400, L500.4100 #### [facility] [address] [place], [address] ALT [Catalytic activity/Vol] 46 U/L Normal <=46 [facility] Comment on above: Performed By: #### L 500.4050, L501.66916, L501.9520, L506.0400, L500.4100 #### [facility] [address] [place], [address] AST [Catalytic activity/Vol] 28 U/L Normal <=37 [facility] Comment on above: Performed By: #### L 500.4050, L501.21510, L501.9520, L506.0400, L500.4100 #### [facility] [address] [place], [address] Bilirubin [Mass/Vol] 0.56 mg/dL Normal 0.00-1.30 [facility] Comment on above: Performed By: #### L 500.4050, L501.20137, L501.9520, L506.0400, L500.4100 #### [facility] [address] [place], [address] BUN/CRE 16.1 RATIO Normal 10-20 [facility] Comment on above: Performed By: #### L 500.4050, L501.26549, L501.9520, L506.0400, L500.4100 #### [facility] [address] [place], [address] Calcium [Mass/Vol] 9.9 mg/dL Normal 7.6-11.0 [facility] Comment on above: Performed By: #### L 500.4050, L501.05789, L501.9520, L506.0400, L500.4100 #### [facility] [address] [place], [address] Chloride [Moles/Vol] 101 mmol/L Normal 98-108 [facility] Comment on above: Performed By: #### L 500.4050, L501.76190, L501.9520, L506.0400, L500.4100 #### [facility] [address] [place], [address] CO2 [Moles/Vol] 24.8 mmol/L Normal 21.0-32.0 [facility] Comment on above: Performed By: #### L 500.4050, L501.11356, L501.9520, L506.0400, L500.4100 #### [facility] [address] [place], [address] Creatinine [Mass/Vol] 0.93 mg/dL Normal 0.70-1.20 [facility] Comment on above: Performed By: #### L 500.4050, L501.32462, L501.9520, L506.0400, L500.4100 #### [facility] [address] [place], [address] GAP 13 Normal 5-15 [facility] Comment on above: Performed By: #### L 500.4050, L501.38812, L501.9520, L506.0400, L500.4100 #### [facility] [address] [place], [address] GFR/1.73 sq M.predicted among non-blacks MDRD (S/P/Bld) [Vol rate/Area] 100 mL/min/{1.73_m2} Normal >60 [facility] Comment on above: Result Comment: mL/m in/1.73m2 CKD-EPI Creatinine Equation (2020) Performed By: #### L 500.4050, L501.22348, L501.9520, L506.0400, L500.4100 #### [facility] [address] [place], [address] Globulin (S) [Mass/Vol] 3.3 g/dL Normal 2.2-4.2 [facility] Comment on above: Performed By: #### L 500.4050, L501.21546, L501.9520, L506.0400, L500.4100 #### [facility] [address] [place], [address] Glucose [Mass/Vol] 88 mg/dL Normal 70-99 [facility] Comment on above: Performed By: #### L 500.4050, L501.82712, L501.9520, L506.0400, L500.4100 #### [facility] [address] [place], [address] Potassium [Moles/Vol] 4.7 mmol/L Normal 3.3-5.1 [facility] Comment on above: Result Comment: Hemo lysis present, Results??could be affected. ?? Performed By: #### L 500.4050, L501.10364, L501.9520, L506.0400, L500.4100 #### [facility] [address] [place], [address] Sodium [Moles/Vol] 138 mmol/L Normal 133-145 [facility] Comment on above: Performed By: #### L 500.4050, L501.73792, L501.9520, L506.0400, L500.4100 #### [facility] [address] [place], [address] T PROT 7.9 g/dL Normal 5.9-8.4 [facility] Comment on above: Performed By: #### L 500.4050, L501.48548, L501.9520, L506.0400, L500.4100 #### [facility] [address] [place], [address] Urea nitrogen [Mass/Vol] 15 mg/dL Normal 4-19 [facility] Comment on above: Performed By: #### L 500.4050, L501.86903, L501.9520, L506.0400, L500.4100 #### [facility] [address] [place], [address] Free T3on 11-19-2024 Free T3 [Mass/Vol] 3.7 pg/mL Normal 2.18-3.98 [facility] Comment on above: Performed By: #### L 500.4050, L501.38948, L501.9520, L506.0400, L500.4100 #### [facility] [address] [place], [place], [id number] Free N7Epsilqg By: Shoaib rodriguez on 11-19-2024 Free T3 [Mass/Vol] 3.7 pg/mL 2.18-3.98 [facility] Glomerular filtration rate ( GFR) estimation/1.73 sq m using serum, plasma, or whole bOrdered By: Shoaib Bernard on 11-19-2024 GFR/1.73 sq M.predicted among non-blacks MDRD (S/P/Bld) [Vol rate/Area] 100 mL/min/{1.73_m2} >60 [facility] Comment on above: mL/min/1.73m2 CKD-EP I Creatinine Equation (2020) LDL calc ser/plasOrdered By: Shoaib Bernard on 11-19-2024 Cholesterol in LDL [Mass/Vol] 94 mg/dL [facility] Comment on above: Qywnpcnnjj=805-411 m g/dL & Higher Zlzk=686 mg/dL or greaterFriedwald Equation for LDL-C Laboratory - Chemistry and C hemistry - challengeOrdered By: Shoaib Bernard on 11-19-2024 AST [Catalytic activity/Vol] 28 U/L <38 [facility] Lipid Profileon 11-19-2024 CHOL:HDL 5.00 Normal [facility] Comment on above: Performed By: #### L 500.4050, L501.49861, L501.9520, L506.0400, L500.4100 #### [facility] [address] [place], [address] Cholesterol [Mass/Vol] 161 mg/dL Normal <=200 [facility] Comment on above: Result Comment: Chol esterol level, Desirable <200 mg/dL Borderline high cholesterol 200-239 mg/dL High cholesterol >=240 mg/dL Recommendations of the NCEP Adult Treatment Panel for the following risk-cutoff thresholds for the [place] population. Performed By: #### L 500.4050, L501.15358, L501.9520, L506.0400, L500.4100 #### [facility] [address] [place], [address] Cholesterol in HDL [Mass/Vol] 32 mg/dL Low [facility] Comment on above: Result Comment: Ayleen onal Cholesterol Education Program (NCEP) guidelines: <40 mg/dL: Low HDL-cholesterol (major risk factor for CHD) >= 60 mg/dL: High HDL-cholesterol (negative risk factor for CHD) HDL-cholesterol is affected by a number of factors, e.g. smoking, exercise, hormones, sex and age. Performed By: #### L 500.4050, L501.63567, L501.9520, L506.0400, L500.4100 #### [facility] [address] [place], [address] Cholesterol in LDL [Mass/Vol] 94 mg/dL Normal [facility] Comment on above: Result Comment: Bord rcwgxh=824-706 mg/dL Higher Pves=993 mg/dL or greater Friedwald Equation for LDL-C Performed By: #### L 500.4050, L501.47707, L501.9520, L506.0400, L500.4100 #### [facility] [address] [place], [address] Cholesterol in VLDL [Mass/Vol] 34 mg/dL Normal 5-40 [facility] Comment on above: Performed By: #### L 500.4050, L501.14326, L501.9520, L506.0400, L500.4100 #### [facility] [address] [place], [address] Triglyceride [Mass/Vol] 172 mg/dL Normal [facility] Comment on above: Result Comment: The drugs N-Acetylcysteine and Metamizole may falsely depress this assay. Normal range: <150 mg/dL Borderline High: 150-199 mg/dL High: 200-499 mg/dL Very High: >500 mg/dL Performed By: #### L 500.4050, L501.53795, L501.9520, L506.0400, L500.4100 #### [facility] [address] [place], [address] Potassium measurement (mass/ volume)Ordered By: Shoaib Bernard on 11-19-2024 Potassium (Unsp spec) [Mass/Vol] 4.7 mmol/L 3.3-5.1 [facility] Comment on above: Hemolysis present, R esults could be affected. Screening total cholesterol/ high density lipoprotein (HDL) cholesterol ratioOrdered By: Shoaib Bernard on 11-19-2024 Cholesterol.total/Cho lesterol in HDL [Mass ratio] 5.00 {ratio} [facility] Serum creatinine measurement (mass/volume)Ordered By: Shoaib Bernard on 11-19-2024 Creatinine [Mass/Vol] 0.93 mg/dL 0.70-1.20 [facility] Serum globulin measurementOr dered By: Shoaib Bernard on 11-19-2024 Globulin (S) [Mass/Vol] 3.3 g/dL 2.2-4.2 [facility] Serum glucose measurement (m ass/volume)Ordered By: Shoaib Bernard on 11-19-2024 Glucose [Mass/Vol] 88 mg/dL 70-99 [facility] Serum or plasma alanine medina otransferase (ALT) measurementOrdered By: Shoaib Bernard on 11-19-2024 ALT [Catalytic activity/Vol] 46 U/L <47 [facility] Serum or plasma albumin jessica urement (mass/volume)Ordered By: Shoaib Bernard on 11-19-2024 Albumin [Mass/Vol] 4.6 g/dL 3.5-5.0 [facility] Serum or plasma albumin/glob ulin mass ratioOrdered By: Shoaib Bernard on 11-19-2024 Albumin/Globulin [Mass ratio] 1.4 {ratio} 0.9-2.4 [facility] Serum or plasma alkaline heri sphatase measurementOrdered By: Shoaib Bernard on 11-19-2024 ALP [Catalytic activity/Vol] 83 U/L 40-129 [facility] Serum or plasma calcium jessica urement (mass/volume)Ordered By: Shoaib Bernard on 11-19-2024 Calcium [Mass/Vol] 9.9 mg/dL 7.6-11.0 [facility] Serum or plasma cholesterol in HDL measurement (mass/volume)Ordered By: Shoaib Bernard on 11-19-2024 Cholesterol in HDL [Mass/Vol] 32 mg/dL Low >40 [facility] Comment on above: National Cholesterol Education Program (NCEP) guidelines:<40 mg/dL: Low HDL-cholesterol (major risk factor for CHD)>= 60 mg/dL: High HDL-cholesterol (negative risk factor for CHD)HDL-cholesterol is affected by a number of factors, e.g. smoking, exercise, hormones, sex and age. Serum or plasma cholesterol measurement (mass/volume)Ordered By: Shoaib Bernard on 11-19-2024 Cholesterol [Mass/Vol] 161 mg/dL <201 [facility] Comment on above: Cholesterol level, D esirable <200 mg/dLBorderline high cholesterol 200-239 mg/dLHigh cholesterol >=240 mg/dLRecommendations of the NCEP Adult Treatment Panel for the following risk-cutoff thresholds for the [place] population. Serum or plasma urea nitroge n measurement (mass/volume)Ordered By: Shaoib Bernard on 11-19-2024 Urea nitrogen [Mass/Vol] 15 mg/dL 4-19 [facility] Sodium levelOrdered By: Shoaib Bernard on 11-19-2024 Sodium [Moles/Vol] 138 mmol/L 133-145 [facility] T4 Free Directon 11-19-2024 T4 FREE DIRECT 1.30 ng/dL Normal 0.76-1.46 [facility] Comment on above: Performed By: #### L 500.4050, L501.50090, L501.9520, L506.0400, L500.4100 #### [facility] [address] [facility] [place], [place], [id number] T4 freeOrdered By: Shoaib rodriguez on 11-19-2024 Free T4 [Mass/Vol] 1.30 ng/dL 0.76-1.46 [facility] TSH DL <= 0.005 mIU/L QnOrde red By: Shoaib Bernard on 11-19-2024 TSH Qn 2.470 uIU/mL 0.300-4.200 [facility] Thyroid Stim Hormone (TSH)on 11-19-2024 TSH 2.470 uIU/mL Normal 0.300-4.200 [facility] Comment on above: Performed By: #### L 500.4050, L501.83433, L501.9520, L506.0400, L500.4100 #### [facility] [address] [place], [address] Total proteinOrdered By: Enid Bernard on 11-19-2024 Protein [Mass/Vol] 7.9 g/dL 5.9-8.4 [facility] Triglycerides measurementOrd ered By: Shoaib Bernard on 11-19-2024 Triglyceride [Mass/Vol] 172 mg/dL <199 [facility] Comment on above: The drugs N-Acetylcy steine and Metamizole may falsely depress this assay. Normal range: <150 mg/dLBorderline High: 150-199 mg/dLHigh: 200-499 mg/dLVery High: >500 mg/dL Low Dose CT Lung Screeningon 06-15-[address] Lung Screening [facility] Imaging Services [address] [place], [place] [id number] Low Dose CT Lung Screening MR#: [id number] Acct: [id number] Name: VIRGINIA PRABHAKAR Rep #: [id number] : 1975 M 49 From: Charlie Day i DO PCP: Dr. Shoaib Bernard MD Status: [facility] Study: Low Dose CT Lung Screening Date of Exam: 06/15 Exam# [id number] Ordering Dr: Shoaib Bernard MD PROCEDURE: LOW [...] use of iterative reconstruction technique). REFERENCE LINK: [employer] Lung-RADS RADIATION DOSE SUMMARY: DLP: 155.52 mGycm [...] is not enlarged. No sizable pericardial effusion. Qhjb-la-qeltrfsy coronary artery calcifications. No thoracic adenopathy. Thoracic [...] 3. Probably benign. Reading Location: [facility] CC: Dr. Shoaib Bernard MD Furniture Removalist: Signed Normal [facility] BUN/creatinine ratioOrdered By: Shoaib Bernard on 05-23-2024 Urea nitrogen/Creatinine [Mass ratio] 18.8 mg/mg 10-20 [facility] Basic Metabolic Profile (BMP )on 05-23-2024 Anion gap [Moles/Vol] 13 mmol/L Normal 5-15 [facility] Comment on above: Performed By: #### L 500.4100, L501.70130, L501.9520, L500.2500, L506.0400 #### [facility] [address] [place], [address] BUN/CRE 18.8 RATIO Normal 10-20 [facility] Comment on above: Performed By: #### L 500.4100, L501.84669, L501.9520, L500.2500, L506.0400 #### [facility] [address] [place], [address] Calcium [Mass/Vol] 9.4 mg/dL Normal 7.6-11.0 [facility] Comment on above: Performed By: #### L 500.4100, L501.07888, L501.9520, L500.2500, L506.0400 #### [facility] [address] [place], [address] Chloride [Moles/Vol] 101 mmol/L Normal 96-108 [facility] Comment on above: Performed By: #### L 500.4100, L501.52561, L501.9520, L500.2500, L506.0400 #### [facility] [address] [place], [address] CO2 [Moles/Vol] 20.2 mmol/L Low 22.0-29.0 [facility] Comment on above: Performed By: #### L 500.4100, L501.72304, L501.9520, L500.2500, L506.0400 #### [facility] [address] [place], [address] Creatinine [Mass/Vol] 0.9 mg/dL Normal 0.8-1.3 [facility] Comment on above: Performed By: #### L 500.4100, L501.94654, L501.9520, L500.2500, L506.0400 #### [facility] [address] [place], [address] GFR/1.73 sq M.predicted among non-blacks MDRD (S/P/Bld) [Vol rate/Area] 105 mL/min/{1.73_m2} Normal >60 [facility] Comment on above: Result Comment: mL/m in/1.73m2 CKD-EPI Creatinine Equation (2020) Performed By: #### L 500.4100, L501.27660, L501.9520, L500.2500, L506.0400 #### [facility] [address] [place], [address] Glucose [Mass/Vol] 106 mg/dL High 70-99 [facility] Comment on above: Performed By: #### L 500.4100, L501.34821, L501.9520, L500.2500, L506.0400 #### [facility] [address] [place], [address] Potassium [Moles/Vol] 4.0 mmol/L Normal 3.3-5.1 [facility] Comment on above: Performed By: #### L 500.4100, L501.71973, L501.9520, L500.2500, L506.0400 #### [facility] [address] [place], [address] Sodium [Moles/Vol] 135 mmol/L Normal 133-145 [facility] Comment on above: Performed By: #### L 500.4100, L501.70667, L501.9520, L500.2500, L506.0400 #### [facility] [address] [place], [address] Urea nitrogen [Mass/Vol] 16 mg/dL Normal 4-19 [facility] Comment on above: Performed By: #### L 500.4100, L501.84534, L501.9520, L500.2500, L506.0400 #### [facility] [address] [place], [place], [id number] Calculated very low density lipoprotein (VLDL) cholesterol measurementOrdered By: Shoaib Bernard on 05-23-2024 VLDL Cholesterol 34 mg/dL 5-40 [facility] Carbon dioxide measurementOr dered By: Shoiab Bernard on 05-23-2024 CO2 [Moles/Vol] 20.2 mmol/L Low 22.0-29.0 [facility] Chloride measurementOrdered By: Shoaib Bernard on 05-23-2024 Chloride [Moles/Vol] 101 mmol/L 96-108 [facility] Free T3on 05-23-2024 Free T3 [Mass/Vol] 3.3 pg/mL Normal 2.18-3.98 [facility] Comment on above: Performed By: #### L 500.4100, L501.71989, L501.9520, L500.2500, L506.0400 #### [facility] [address] [place], [place], [id number] Free F8Yabqznw By: Shoaib rodriguez on 05-23-2024 Free Triiodothyronine (T3) pg/dL 3.3 pg/mL 2.18-3.98 [facility] GFR/1.73 sq M.predicted analilia g non-blacks MDRD (S/P/Bld) [Vol rate/Area]Ordered By: Shoabi Bernard on 05-23-2024 Estimated GFR (MDRD) Non-Af Amer 105 >60 [facility] Comment on above: mL/min/1.73m2 CKD-EP I Creatinine Equation (2020) LDL calc ser/plasOrdered By: Shoaib Bernard on 05-23-2024 LDL Cholesterol, Calculated 122 mg/dL [facility] Comment on above: Xccwcgzvgc=290-059 m g/dL & Higher Rwxl=959 mg/dL or greater Lipid Profileon 05-23-2024 CHOL:HDL 5.17 Normal [facility] Comment on above: Performed By: #### L 500.4100, L501.09214, L501.9520, L500.2500, L506.0400 #### [facility] [address] [place], [address] Cholesterol [Mass/Vol] 193 mg/dL Normal <=200 [facility] Comment on above: Result Comment: Chol esterol level, Desirable <200 mg/dL Borderline high cholesterol 200-239 mg/dL High cholesterol >=240 mg/dL Recommendations of the NCEP Adult Treatment Panel for the following risk-cutoff thresholds for the [place] population. Performed By: #### L 500.4100, L501.17055, L501.9520, L500.2500, L506.0400 #### [facility] [address] [place], [address] Cholesterol in HDL [Mass/Vol] 37 mg/dL Low [facility] Comment on above: Result Comment: Ayleen onal Cholesterol Education Program (NCEP) guidelines: <40 mg/dL: Low HDL-cholesterol (major risk factor for CHD) >= 60 mg/dL: High HDL-cholesterol (negative risk factor for CHD) HDL-cholesterol is affected by a number of factors, e.g. smoking, exercise, hormones, sex and age. Performed By: #### L 500.4100, L501.89641, L501.9520, L500.2500, L506.0400 #### [facility] [address] [place], [address] Cholesterol in LDL [Mass/Vol] 122 mg/dL Normal [facility] Comment on above: Result Comment: Bord whhvxb=421-479 mg/dL Higher Wslc=867 mg/dL or greater Performed By: #### L 500.4100, L501.76790, L501.9520, L500.2500, L506.0400 #### [facility] [address] [place], [address] Cholesterol in VLDL [Mass/Vol] 34 mg/dL Normal 5-40 [facility] Comment on above: Performed By: #### L 500.4100, L501.98250, L501.9520, L500.2500, L506.0400 #### [facility] [address] [place], [place], [address] Triglyceride [Mass/Vol] 169 mg/dL Normal [facility] Comment on above: Result Comment: The drugs N-Acetylcysteine and Metamizole may falsely depress this assay. Normal range: <150 mg/dL Borderline High: 150-199 mg/dL High: 200-499 mg/dL Very High: >500 mg/dL Performed By: #### L 500.4100, L501.56035, L501.9520, L500.2500, L506.0400 #### [facility] [address] [place], [place], [id number] Screening total cholesterol/ high density lipoprotein (HDL) cholesterol ratioOrdered By: Shoaib Bernard on 05-23-2024 Cholesterol.total/Cho lesterol in HDL [Mass ratio] 5.17 {ratio} [facility] Serum creatinine measurement (mass/volume)Ordered By: Shoaib Bernard on 05-23-2024 Creatinine [Mass/Vol] 0.9 mg/dL 0.70-1.20 [facility] Serum glucose measurement (m ass/volume)Ordered By: Shoaib Bernard on 05-23-2024 Glucose [Mass/Vol] 106 mg/dL High 70-99 [facility] Serum or plasma anion gap de termination (moles/volume)Ordered By: Shoaib Bernard on 05-23-2024 Anion gap [Moles/Vol] 13 mmol/L 5-15 [facility] Serum or plasma calcium jessica urement (mass/volume)Ordered By: Shoaib Bernard on 05-23-2024 Calcium [Mass/Vol] 9.4 mg/dL 7.6-11.0 [facility] Serum or plasma cholesterol in HDL measurement (mass/volume)Ordered By: Shoaib Bernard on 05-23-2024 Cholesterol in HDL [Mass/Vol] 37 mg/dL Low >40 [facility] Comment on above: National Cholesterol Education Program (NCEP) guidelines:<40 mg/dL: Low HDL-cholesterol (major risk factor for CHD)>= 60 mg/dL: High HDL-cholesterol (negative risk factor for CHD)HDL-cholesterol is affected by a number of factors, e.g. smoking, exercise, hormones, sex and age. Serum or plasma cholesterol measurement (mass/volume)Ordered By: Shoaib Bernard on 05-23-2024 Cholesterol [Mass/Vol] 193 mg/dL <201 [facility] Comment on above: Cholesterol level, D esirable <200 mg/dLBorderline high cholesterol 200-239 mg/dLHigh cholesterol >=240 mg/dLRecommendations of the NCEP Adult Treatment Panel for the following risk-cutoff thresholds for the [place] population. Serum or plasma potassium me asurementOrdered By: Shoaib Bernard on 05-23-2024 Potassium [Moles/Vol] 4.0 mmol/L 3.3-5.1 [facility] Serum or plasma sodium measu rement (moles/volume)Ordered By: Shoaib Bernard on 05-23-2024 Sodium [Moles/Vol] 135 mmol/L 133-145 [facility] Serum or plasma urea nitroge n measurement (mass/volume)Ordered By: Shoaib Bernard on 05-23-2024 Urea nitrogen [Mass/Vol] 16 mg/dL 4-19 [facility] T4 Free Directon 05-23-2024 T4 FREE DIRECT 1.20 ng/dL Normal 0.76-1.46 [facility] Comment on above: Performed By: #### L 500.4050, L501.82181, L501.9520, L506.0400, L500.4100 #### [facility] [address] [place], [address] T4 freeOrdered By: Shoaib rodriguez on 05-23-2024 Free T4 [Mass/Vol] 1.20 ng/dL 0.76-1.46 [facility] TSH DL <= 0.005 mIU/L QnOrde red By: Shoaib Bernard on 05-23-2024 Thyroid Stimulating Hormone (TSH) 2.580 uIU/mL 0.300-4.200 [facility] Thyroid Stim Hormone (TSH)on 05-23-2024 TSH 2.580 uIU/mL Normal 0.300-4.200 [facility] Comment on above: Performed By: #### L 500.4100, L501.16360, L501.9520, L500.2500, L506.0400 #### [facility] [address] [place], [address] Triglycerides measurementOrd ered By: Shoaib Bernard on 05-23-2024 Triglyceride [Mass/Vol] 169 mg/dL <199 [facility] Comment on above: The drugs N-Acetylcy steine and Metamizole may falsely depress this assay. Normal range: <150 mg/dLBorderline High: 150-199 mg/dLHigh: 200-499 mg/dLVery High: >500 mg/dL Basophil percentageOrdered B y: Shoaib Bernard on 01-28-2023 Chloride [Moles/Vol] 104 mmol/L 98-107 [facility] Cholesterol [Mass/Vol] 197 mg/dL <200 [facility] Comment on above: <200 mg/dL Desirable 200-240 mg/dL Borderline >240 mg/dL High Risk Glucose [Mass/Vol] 106 mg/dL 74-106 [facility] Comment on above: Fasting Glucose resu lt from 100 to 125 mg/dL suggests IMPAIRED HOMEOSTASIS per A.D.A. criteria. Potassium [Moles/Vol] 4.4 mmol/L 3.5-5.1 [facility] Sodium [Moles/Vol] 135 mmol/L 136-145 [facility] Triglyceride [Mass/Vol] 148 mg/dL <199 [facility] Comment on above: The drugs N-Acetylcy steine and Metamizole may falsely depress this assay.Serum Triglycerides Reference Interval Normal <150 mg/dL Borderline high 150 - 199 mg/dL High 200 - 499 mg/dL Very High > or = 500 mg/dL Laboratory - Chemistry and C hemistry - challengeOrdered By: Shoaib Bernard on 01-28-2023 CO2 [Moles/Vol] 25.0 mmol/L 21.0-32.0 [facility] Urea nitrogen/Creatinine [Mass ratio] 21.9 mg/mg 10-20 [facility] No Panel InformationOrdered By: Shoaib Bernard on 01-28-2023 Estimated GFR (MDRD) Amer 107 mL/min >60 [facility] Comment on above: GFR Calc Estimated GFR (MDRD) Non-Af Amer 89 mL/min >60 [facility] Comment on above: Non- GFR Calc Vitamin D 25-Hydroxy 23.8 ng/mL [facility] Comment on above: Vitamin D 25(OH) Sta tus Range Deficiency <20 ng/mL (50nmol/L) Insufficiency 20 - 30 ng/mL (50 - 75 nmol/L) Sufficiency 30 - 100 ng/mL (75 - 250 nmol/L) Toxicity >100 ng/mL (>250 nmol/L) Serum or plasma calcium jessica urement (mass/volume)Ordered By: Shoaib Bernard on 01-28-2023 Calcium [Mass/Vol] 9.1 mg/dL 8.5-10.1 [facility] Serum or plasma cholesterol in HDL measurement (mass/volume)Ordered By: Shoaib Bernard on 01-28-2023 Cholesterol in HDL [Mass/Vol] 42 mg/dL >40 [facility] Comment on above: The drugs N-Acetylcy steine and Metamizole may falsely depress this assay. Reference Range HDL <40 mg/dL Low HDL Cholesterol HDL >or= 60 mg/dL High HDL Cholesterol Serum or plasma cholesterol in VLDL measurement (mass/volume)Ordered By: Shoaib Bernard on 01-28-2023 Cholesterol in VLDL [Mass/Vol] 30 mg/dL 5-40 [facility] Serum or plasma creatinine m easurement (mass/volume)Ordered By: Shoaib Bernard on 01-28-2023 Creatinine [Mass/Vol] 0.96 mg/dL 0.70-1.30 [facility] Comment on above: The validity of the calculated GFR & GFRAA in patients over 70 years has not been determined. Clinical correlation is essential. Serum or plasma low density lipoprotein (LDL) cholesterol measurement (mass/volume)Ordered By: Shoaib Bernard on 01-28-2023 Cholesterol in LDL [Mass/Vol] 125 mg/dL 0-130 [facility] Serum or plasma urea nitroge n measurement (mass/volume)Ordered By: Shoaib Bernard on 01-28-2023 Urea nitrogen [Mass/Vol] 21 mg/dL 7-18 [facility] Thin prep Papanicolaou smear with manual screeningOrdered By: Shoaib Bernard on 01-28-2023 Thin prep Papanicolaou smear with manual screening 6 5-15 [facility] Absolute lymphocyte counton 04-06-2022 Lymphocytes Auto (Unsp spec) [#/Vol] 2.64 10*3/uL 0.83-4.51 [facility] Work Phone: Basophil percentageon 2022 Basophils/100 WBC (Bld) 1.1 % 0-1 [facility] Work Phone: Bilirubin [Mass/Vol] 0.40 mg/dL 0.20-1.00 [facility] Work Phone: Comment on above: For patients on eltr ombopag therapy, use of Dimension Hayes TBIL is not recommended. Chloride [Moles/Vol] 101 mmol/L 98-107 [facility] Work Phone: Cholesterol [Mass/Vol] 246 mg/dL <200 [facility] Work Phone: Comment on above: <200 mg/dL Desirable 200-240 mg/dL Borderline >240 mg/dL High Risk Eosinophils/100 WBC (Bld) 1.5 % 0-5 [facility] Work Phone: Glucose [Mass/Vol] 118 mg/dL 74-106 [facility] Work Phone: Comment on above: Fasting Glucose resu lt from 100 to 125 mg/dL suggests IMPAIRED HOMEOSTASIS per A.D.A. criteria. Neutrophils (Bld) [#/Vol] 4.1 10*3/uL 2.0-7.7 [facility] Work Phone: Neutrophils/100 WBC (Bld) 53.9 % 47-70 [facility] Work Phone: Potassium [Moles/Vol] 4.2 mmol/L 3.5-5.1 [facility] Work Phone: Protein [Mass/Vol] 8.1 g/dL 6.4-8.2 [facility] Work Phone: [phone] Sodium [Moles/Vol] 136 mmol/L 136-145 [facility] Work Phone: [phone] Triglyceride [Mass/Vol] 250 mg/dL <199 [facility] Work Phone: [phone] Comment on above: The drugs N-Acetylcy steine and Metamizole may falsely depress this assay.Serum Triglycerides Reference Interval Normal <150 mg/dL Borderline high 150 - 199 mg/dL High 200 - 499 mg/dL Very High > or = 500 mg/dL WBC (Bld) [#/Vol] 7.6 10*3/uL 4.4-11.0 [facility] Work Phone: [phone] Blood erythrocytes count (nu mber/volume)on 04-06-2022 RBC (Bld) [#/Vol] 5.96 10*6/uL 4.6-6.2 [facility] Work Phone: [phone] Blood hemoglobin measurement (mass/volume)on 04-06-2022 Hemoglobin (Bld) [Mass/Vol] 16.2 g/dL 13.0-16.5 [facility] Work Phone: Blood lymphocytes/100 leukoc yteson 04-06-2022 Lymphocytes/100 WBC (Bld) 34.9 % 19-41 [facility] Work Phone: [phone] Blood monocytes/100 leukocyt eson 04-06-2022 Monocytes/100 WBC (Bld) 7.9 % 0-10 [facility] Work Phone: [phone] Blood platelet mean volumeon 04-06-2022 Platelet mean volume (Bld) [Entitic vol] 9.3 fL 6.2-12.0 [facility] Work Phone: [phone] Determination of erythrocyte mean corpuscular volume (MCV)on 04-06-2022 MCV (RBC) [Entitic vol] 82.7 fL 80-94 [facility] Work Phone: [phone] Hematocrit Auto (Bld) [Volum e fraction]on 04-06-2022 Hematocrit (Bld) [Volume fraction] 49.3 % 40-54 [facility] Work Phone: Laboratory - Chemistry and C hemistry - challengeon 04-06-2022 ALP [Catalytic activity/Vol] 98 U/L 45-117 [facility] Work Phone: [phone] ALT [Catalytic activity/Vol] 41 U/L 16-61 [facility] Work Phone: [phone] CO2 [Moles/Vol] 27.0 mmol/L 21.0-32.0 [facility] Work Phone: [phone] Cobalamin (Vitamin B12) [Mass/Vol] 482 pg/mL 211-911 [facility] Work Phone: [phone] Free T4 [Mass/Vol] 0.89 ng/dL 0.76-1.46 [facility] Work Phone: [phone] Globulin (S) [Mass/Vol] 4.4 g/dL 2.2-4.2 [facility] Work Phone: [phone] Urea nitrogen/Creatinine [Mass ratio] 14.4 mg/mg 10-20 [facility] Work Phone: [phone] Laboratory - Hematology and Cell countson 04-06-2022 Erythrocyte distribution width (RBC) [Entitic vol] 42.5 fL 35.1-43.9 [facility] Work Phone: [phone] Erythrocyte distribution width (RBC) [Ratio] 14.3 % 11.6-14.6 [facility] Work Phone: [phone] Immature granulocytes/100 WBC (Bld) 0.700 % 0.0-0.9 [facility] Work Phone: [phone] Comment on above: IG% - Immature Granu locytes (promyelocytes, myelocytes and metamyelocytes) > 1% indicates that a LEFT SHIFT is Present. MCH (RBC) [Entitic mass] 27.2 pg 27.0-32.0 [facility] Work Phone: Nucleated RBC/100 WBC (Bld) [Ratio] 0 % 0-5 [facility] Work Phone: MCHC Auto (RBC) [Mass/Vol]on 04-06-2022 MCHC (RBC) [Mass/Vol] 32.9 g/dL 32-36 [facility] Work Phone: No Panel Informationon 04-06 Estimated GFR (MDRD) Amer 106 mL/min >60 [facility] Work Phone: Comment on above: GFR Calc Estimated GFR (MDRD) Non-Af Amer 87 mL/min >60 [facility] Work Phone: Comment on above: Non- GFR Calc Thyroid Stimulating Hormone (TSH) 3.18 uIU/mL 0.358-3.74 [facility] Work Phone: [phone] Vitamin D 25-Hydroxy 17.8 ng/mL [facility] Work Phone: Comment on above: Vitamin D 25(OH) Sta tus Range Deficiency <20 ng/mL (50nmol/L) Insufficiency 20 - 30 ng/mL (50 - 75 nmol/L) Sufficiency 30 - 100 ng/mL (75 - 250 nmol/L) Toxicity >100 ng/mL (>250 nmol/L) Platelets bldon 04-06-2022 Platelets (Bld) [#/Vol] 416 10*3/uL 150-450 [facility] Work Phone: [phone] Serum or plasma albumin jessica urement (mass/volume)on 04-06-2022 Albumin [Mass/Vol] 3.7 g/dL 3.2-5.0 [facility] Work Phone: [phone] Serum or plasma albumin/glob ulin mass ratioon 04-06-2022 Albumin/Globulin [Mass ratio] 0.8 {ratio} 0.9-2.4 [facility] Work Phone: [phone] Serum or plasma calcium jessica urement (mass/volume)on 04-06-2022 Calcium [Mass/Vol] 9.1 mg/dL 8.5-10.1 [facility] Work Phone: [phone] Serum or plasma cholesterol in HDL measurement (mass/volume)on 04-06-2022 Cholesterol in HDL [Mass/Vol] 40 mg/dL >40 [facility] Work Phone: Comment on above: The drugs N-Acetylcy steine and Metamizole may falsely depress this assay. Reference Range HDL <40 mg/dL Low HDL Cholesterol HDL >or= 60 mg/dL High HDL Cholesterol Serum or plasma cholesterol in VLDL measurement (mass/volume)on 04-06-2022 Cholesterol in VLDL [Mass/Vol] 50 mg/dL 5-40 [facility] Work Phone: [phone] Serum or plasma creatinine m easurement (mass/volume)on 04-06-2022 Creatinine [Mass/Vol] 0.97 mg/dL 0.70-1.30 [facility] Work Phone: Comment on above: The validity of the calculated GFR & GFRAA in patients over 70 years has not been determined. Clinical correlation is essential. Serum or plasma folate measu rement (mass/volume)on 04-06-2022 Folate [Mass/Vol] 15.60 ng/mL 3.1-55.4 [facility] Work Phone: Serum or plasma low density lipoprotein (LDL) cholesterol measurement (mass/volume)on 04-06-2022 Cholesterol in LDL [Mass/Vol] 156 mg/dL 0-130 [facility] Work Phone: Serum or plasma urea nitroge n measurement (mass/volume)on 04-06-2022 Urea nitrogen [Mass/Vol] 14 mg/dL 7-18 [facility] Work Phone: Thin prep Papanicolaou smear with manual screeningon 04-06-2022 Thin prep Papanicolaou smear with manual screening 19 U/L 15-37 [facility] Work Phone: [phone] Thin prep Papanicolaou smear with manual screening 8 5-15 [facility] Work Phone: [phone] Whole blood hemoglobin A1c/t otal hemoglobin ratio (mass fraction)on 04-06-2022 HbA1c (Bld) [Mass fraction] 6.0 % 3.8-5.6 [facility] Work Phone: Comment on above: Normal < 5.7 % Predi abetic 5.7 - 6.4 % Diabetic >or= 6.5 % Please note range changes. [facility]on 05-08-2020 Initial Visit (Orthopaedic Surgery) Diagnoses/Problems Assessed Other closed fracture of distal end of right fibula, initial encounter (824.8) (S82.666L) Orders Other closed fracture of distal end of right fibula, initial encounter Start: traMADol HCl - 50 MG Oral Tablet; Take 1 tablet every 4 hours Xray Ankle 2 View; Status:Hold For - Scheduling; Requested for:[id number]; Laterality : Right Radiologist to Determine Optimal [...] SWELLING. DOES HAVE CRUTCHES. XRAYS. REFERRED BY [facility]. History of Present [...] TABS Vitals Vital Signs Recorded: 08May2020 11:11AM Uxndfwztkak44.7 F Evueulbb477 Nnfznvmmt52 Height5 ft 10 in Gtrcnl065 lb 2 oz BMI Ubeqguxkbq90.28 BSA Calculated2.04 Physical Exam RLE is NVI, ROM deferred, positive swelling in ankle and foot. nontender metatarsal and base of 5th metatarsal, nontender rmedial malleolus, mild tenderness deltoid ligament, exquisite tenderness distal fibula. negative lower leg swelling, negative posterior calf tenderness. Results/Data Xray Ankle 3 [id number] 08:32AMNon Ambulatory, Provider Ordering Provider: RHONDA MAJOR [id number] Test NameResultFlagReference Xray Ankle 3 View(Report) Interpreted by: AVERY JACKSON 05/07/20 09:30 STUDY: Ankle Radiographs; 05/07/2020 8:05 AM INDICATION: Continued pain and bruising to right ankle post twisting injury 1 1/2 weeks ago. COMPARISON: None Available. ACCESSION NUMBER(S): [id number] ORDERING CLINICIAN: RHONDA MAJOR TECHNIQUE: Three view(s) [...] weeks ago. COMPARISON: None Available. ACCESSION NUMBER(S): [id number] ORDERING CLINICIAN: RHONDA MAJOR TECHNIQUE: Three view(s) [...] MD Electronically signed by: AVERY JACKSON MD [facility] Provider Note - ED v2on 04-28 [...] SIGNS: T PRBP SpO2O2(LPM) %FiO2 Method 07-May-2020 08:22:00-36.72402389/96 97 MEDICAL DECISION MAKING/ED COURSE MDM/ED COURSE: [...] for evaluation. Patient denies use of any tmus-bnj-zaoztto medications at home for symptom management has [...] on palpation to the right ankle Integumentary: [place], warm, dry, and Intact. Neurologic: Alert, Oriented, [...] ill patient: no Electronic Signatures: Rhonda Major ([employer]-PASSENGER SERVICE AGENT) (Signed 07-May-2020 08:56) Authored: HPI, PMH, PE, Results/Vital Signs, MDM/ED Course, Clinical Impression, Attestation, Chart Review, Scores Last Updated: 07-May-2020 08:56 by Rhonda Major (M[employer]-PASSENGER SERVICE AGENT) [facility] OBSOLETEon 10-20-2019 OBSOLETE Refill (FAMPWS) -- VIRGINIA PRABHAKAR ([id number]) 1975 M Date Time Provider Department 10/20/19 CHANTAL GUNTER During your visit today, we recorded the following information about you: Dorene Meadows Ma 10/22/2019 9:27 AM Signed Last office visit: 08/22/2018 F/u scheduled: no follow up Last refilled: Trazodone #30 with 5 refills on 08/22/18 Dorene Allison APRN.PASSENGER SERVICE AGENT 10/22/2019 10:59 AM Signed Script sent. Due for an appointment (gltz-gz-vzvg or virtual). Please let patient know. Neetu Allison APRN.PASSENGER SERVICE AGENT Nini Calix MA, MA 10/22/2019 11:17 AM [...] Encounter Status:Closed by NINI CALIX on 10/22/19 [facility] OBSOLETEon 05-23-2019 OBSOLETE Refill (FAMPWS) -- VIRGINIA PRABHAKAR ([id number]) 1975 M Date Time Provider Department 05/23/19 CHANTAL GUNTER During your visit today, we [...] by CHANTAL GUNTER MD on 05/23/19 Normal [facility] Encounters Encounter Date Encounter Type Care Provider Facility Start: 12-06-2024 End: 12-06-[address] Shoaib Bernard MD Work Phone: -Cat Scan [facility] Start: 12-06-2024 End: 12-06-[address] Shoaib Bernard MD -Cat Scan [facility] Work Phone: Start: 12-06-2024 End: 12-06-2024 ambulatory Shoaib Bernard Facility:[facility] Start: 11-19-2024 End: 11-19-[address] Shoaib Bernard MD Work Phone: -Laboratory [facility] Start: 11-19-2024 End: 11-19-[address] Shoaib Bernard MD -Laboratory [facility] Start: 11-19-2024 End: 11-19-2024 ambulatory Shoaib Bernard Facility:[facility] Start: 06-15-2024 End: 06-15-[address] Shoaib Bernard MD -Cat Scan, [facility] Work Phone: Start: 06-15-2024 End: 06-15-[address] Shoaib Bernard MD Work Phone: [facility] Work Phone: Start: 06-06-2024 Encounter for genera l adult medical examination without abnormal findings Shoaib Bernard [facility] Start: 05-23-2024 End: 05-23-[address] Shoaib Bernard MD Work Phone: [facility] Work Phone: Start: 05-23-2024 End: 05-23-[address] [facility] Start: 05-23-2024 End: 05-23-2024 ambulatory Shoaib Bernard Facility:[facility] Start: 01-28-2023 End: 01-28-2023 ambulatory [facility] Work Phone: Start: 01-28-2023 End: 01-28-2023 Patient encounter procedure [facility]-Laboratory, [facility] Start: 04-06-2022 End: 04-06-2022 ambulatory [facility] Work Phone: Start: 04-06-2022 End: 04-06-2022 Patient encounter procedure [facility]-Laboratory Procedures Date Procedure Procedure Detail Performing Clinician Start: 12-06-2024 CT of thorax with contrast Dr. Shoaib Bernard MD Work Phone: Start: 06-15-[address] Shoaib jovel MD Work Phone: Payers Date Payer Category Payer Self-pay [id number] 2024 Unknown [id number] Medicaid [id number] Unknown ANTHEM [id number] Unknown [id number] Unknown [id number] Unknown [id number] [id number] [id number] Unknown [id number] [id number] [id number] Unknown [id number] 2.16.8 [id number] Unknown [id number] 2.16.8 [id number] Social History Date Type Detail Facility [facility]: [facility] Start: 1975 Sex [facility]igned At Male [facility] Start: 05-08-2021 Tobacco smoking stat us CTIS Never smoked tobacco (finding) [facility] Start: 06-06-2024 End: 06-22-2024 Sex Male (finding) [facility] Sex Male [facility] Radiology Diagnostic study note 12-07-2024 Note Date & Type Note Facility 12-07-2024 Radiology Diagnostic study note [facility] Imaging Services [address] [place] [address] Chest WITH Contrast MR#: [id number] Acct: [id number] Name: VIRGINIA PRABHAKAR Rep #: [id number] : 1975 M 49 From: Marvin Brown MD PCP: Dr. Shoaib Bernard MD Status: TOREY MARINA Study:Chest WITH Contrast Date of Exam: 12/06/24 Exam# [id number] Ordering Dr: Shoaib Bernard MD PROCEDURE: CHEST [...] examination. 12 month follow-up recommended. Reading Location: [id number] CC: Dr. Shoaib Bernard MD ~ Furniture Removalist: Signed [facility] Radiology Diagnostic study note 06-15-2024 Note Date & Type Note Facility 06-15-2024 Radiology Diagnostic study note [facility] Imaging Services [address] [place] [address] Lung Screening MR#: [id number] Acct: [id number] Name: VIRGINIA PRABHAKAR Rep #: [id number] : 1975 M 49 From: And poncho Apodaca DO PCP: Dr. Shoaib Bernard MD Status: REG Alfredo MARINA Study:Low Dose CT Lung Screening Date of Exam : 06/15/24 Exam# [id number] Ordering Dr: Shoaib Bernard MD PROCEDURE: LOW [...] use of iterative reconstruction technique). REFERENCE LINK: [employer] Lung-RADS RADIATION DOSE SUMMARY: DLP: 155.52 mGycm [...] is not enlarged. No sizable pericardial effusion. Mnxz-oi-bbylqioz coronary artery calcifications. No thoracic adenopathy. Thoracic [...] LAURENGEO CC: Dr. Shoaib Bernard MD ~ Furniture Removalist: Signed [facility] Evaluation note Note Date & Type Note Facility Evaluation note No assessment information availa ble [facility] Work Phone: Reason for referral (narrative) Note Date & Type Note Facility Reason for referral (narrative) No reason for referral information available [facility] Work Phone: Summary Purpose Family History No Family History Records FoundNo Family History Records FoundNo Family History Records FoundNo Family History Records Found Advance Directives Advance Directive Response Recorded Date/ Time Living Will No May 08 6:26pm Power of Security Installer No May 08, 2021 6:26pm Chief Complaint [...] section and content) DATE CREATED AUTHOR 10/22/2019 [facility] DATE CREATED AUTHOR AUTHOR'S ORGANIZ ATION 05/08/2020 [facility] DATE CREATED AUTHOR AUTHOR'S ORGANIZ ATION 05/10/2020 [employer] DATE CREATED AUTHOR AUTHOR'S ORGANIZ ATION 12/20/2024 [facility] Goals (unrecognized section and content) Goals may [...] BE BASED ON THE PRIMARY CLINICAL RECORDS. [facility]. provides no warranty or guarantee of the accuracy or completeness of information in this document.
[2025-02-06] MEDS: 0.9% Normal Saline (1000mL) 1,000 ML 120 ML IV ×3 (01:40→19:55)
[2025-02-06] MEDS: Pantoprazole Sodium 40 MG in 0.9% Normal Saline (100mL MB+) 100 ML 300 MG IV (01:42)
[2025-02-06 06:39] LABS: Hematocrit 43.1 % (40-54); Hemoglobin 14.2 g/dL (13.0-16.5); Immature Granulocytes Count 0.030 X10^3/uL (0.0-0.0); Mean Corp Hgb Conc 32.9 g/dL (32-36); Mean Corpuscular Volume 82.1 fL (80-94); Mean Platelet Vol. 9.3 fl (6.2-12.0); NRBC Flagged by Analyzer 0 % (0-5); Platelet Count 349 K/mm3 (150-450); RBC Distribution Width CV 13.6 % (11.6-14.6); RBC Distribution Width SD 40.9 fl (35.1-43.9); Red Blood Count 5.25 M/mm3 (4.6-6.2); White Blood Count 11.1 K/mm3 (4.4-11.0)
[2025-02-06] MEDS: Ketorolac 30 MG/ML Syringe IV (06:59)
--- NOTE | 2025-02-06 07:03 | PCM.HP.STD ---
HPI - General General Date of Admission: 02/06/25 HPI Narrative VIRGINIA PRABHAKAR, is a 49 M who presents to the ER last night due to abdominal pain. Patient pain initially started diffuse/mid abdomen on Tuesday did get worse by Tuesday morning at 8 AM and then got worse again Tuesday morning 8 AM and patient came into the ER last night after talking to the on-call PCP recommending going to the ER. 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 Patient initially thought he had food poisoning. Patient did have nausea vomiting. Patient's last bowel movement was on Tuesday. Patient had a colonoscopy last year by Dr. Cruz that was normal. Patient's other surgery was back surgery. Currently patient states the pain is dull however if he coughs or get jostled it would be a 10/10. Patient white blood count came and is 18 currently it is 11 is on IV Zosyn. CT abdomen pelvis called possible perforated diverticulitis with abscess also could not rule out appendicitis possibly perforated active with some thickening of the terminal ileum and dilated small bowel of the more proximal ileum/jejunum. [facility] Medical History (Updated 02/06/25 @ 12:[address] Rosie Monsalve MD) Thyroid disorder Alcohol abuse Depression Anxiety Home Medications Medication Instructions Recorded Last Taken Type alprazolam 0.5 mg tablet 0.5 mg PO DAILY PRN anxiety 02/06/25 Unknown History gabapentin 300 mg capsule 300 mg PO QHS pain 02/06/25 Unknown History levothyroxine 50 mcg tablet 50 mcg PO DAILY thyroid 02/06/25 Unknown History meloxicam 15 mg tablet 15 mg PO DAILY inflammatory 02/06/25 Unknown History rosuvastatin 5 mg tablet 5 mg PO DAILY hld 02/06/25 Unknown History Allergy/AdvReac Type Severity Reaction Status Date / Time No Known Allergies Allergy Verified 02/05/25 21:54 Surgical History H/O lumbar discectomy Social History Smoking Status: Never smoker ROS Constitutional Constitutional: Reports anorexia Eyes Eyes: Denies blurry vision ENT HEENT: Denies dysphagia Cardiovascular Cardiovascular: Denies chest pain Respiratory/Chest Respiratory/Chest: Denies cough Gastrointestinal Gastrointestinal: Reports abdominal pain, nausea and vomiting; Denies diarrhea Genitourinary Genitourinary: Denies dysuria Musculoskeletal Musculoskeletal: Denies joint swelling Integumentary Integumentary: Denies jaundice Neurologic Neurologic: Denies focal weakness Psychiatric Psychiatric: Denies anxiety Hematologic/Lymphatic Hematologic/Lymphatic: Denies easy bleeding Vital Signs Vital Signs Vital Signs: 02/05/25 21:53 02/05/25 23:52 02/06/25 00:56 Temperature 98.4 F 98.6 F 98.5 F Temperature Source Oral Oral Pulse Rate 120 H 105 H 104 H Respiratory Rate 18 16 18 Respiratory Effort Respiratory Depth Respiratory Pattern Blood Pressure 151/87 H 142/86 H 135/86 H Blood Pressure Mean 108 104 102 Blood Pressure Source Blood Pressure Position Blood Pressure Location Pulse Ox 100 95 94 Oxygen Delivery Method Room Air 02/06/25 00:58 02/06/25 01:26 02/06/25 01:34 Temperature 98.5 F 98.4 F Temperature Source Oral Oral Pulse Rate 104 H 109 H Respiratory Rate 18 20 H Respiratory Effort Normal Non-Labored Respiratory Depth Normal Respiratory Pattern Normal Blood Pressure 135/86 H 145/92 H Blood Pressure Mean 102 109 Blood Pressure Source Monitor Blood Pressure Position Semi-Fowlers Blood Pressure Location Left Arm Pulse Ox 94 95 Oxygen Delivery Method Room Air Room Air Room Air 02/06/25 05:30 Temperature 98.1 F Temperature Source Oral Pulse Rate 109 H Respiratory Rate 16 Respiratory Effort Respiratory Depth Respiratory Pattern Blood Pressure 159/83 H Blood Pressure Mean 108 Blood Pressure Source Monitor Blood Pressure Position Semi-Fowlers Blood Pressure Location Right Arm Pulse Ox 94 Oxygen Delivery Method Room Air Weight Weight: 240 lb 4.862 oz Body Mass Index (BMI) 36.5 Physical Exam Const alert, oriented x3 and no apparent distress HEENT normocephalic and head/scalp atraumatic Resp normal respiratory effort Cardio regular rate GI soft to palpation Inspection: abdominal distention Palpation: tender Positive for LLQ and RLQ; Negative for guarding Extremity no clubbing, cyanosis or edema Neuro CN's II-XII intact bilaterally Psych mental status grossly normal Results Lab / Micro Data 02/06/25 06:25 02/06/25 06:25 Labs: Laboratory Results - last 24 hr 02/05/25 22:57: WBC 18.8 H, RBC 5.58, Hgb 15.0, Hct 45.2, MCV 81.0, MCH 26.9 L, MCHC 33.2, RDW Std Deviation 39.2, RDW Coeff of Julian 13.4, Plt Count 370, MPV 9.3, Immature Gran % (Auto) 0.500, Neut % (Auto) 85.0 H, Lymph % (Auto) 9.8 L, [place] % (Auto) 4.2, Eos % (Auto) 0.2, Baso % (Auto) 0.3, Absolute Neuts (auto) 16.0 H, Absolute Lymphs (auto) 1.84, Nucleated RBC % 0, Sodium 129 L, Potassium 4.2, Chloride 96 L, Carbon Dioxide 19.6 L, Anion Gap 14, BUN 13, Creatinine 0.92, Estim Creat Clear Calc 115.30, Est GFR (MDRD) Non-Af 101, BUN/Creatinine Ratio 14.5, Glucose 156 H, Calcium 9.2, Total Bilirubin 0.97, AST 15, ALT 22, Alkaline Phosphatase 86, Total Protein 7.9, Albumin 4.1, Globulin 3.8, Albumin/Globulin Ratio 1.1, Lipase 15 02/06/25 00:23: Urine Color Yellow, Urine Clarity Clear, Urine pH 6.5, Ur Specific [place] 1.010, Urine Protein 30 H, Urine Glucose (UA) Normal, Urine Ketones Negative, Urine Occult Blood 25 H, Urine Nitrite Negative, Urine Bilirubin Negative, Urine Urobilinogen Normal, Ur Leukocyte Esterase Negative, Urine RBC 0-5 SEEN, Urine WBC 0-5 SEEN, Ur Squamous Epith Cells 0-5 SEEN, Urine Bacteria RARE, Urine Mucus 0 SEEN 02/06/25 06:25: WBC 11.1 H, RBC 5.25, Hgb 14.2, Hct 43.1, MCV 82.1, MCH 27.0, MCHC 32.9, RDW Std Deviation 40.9, RDW Coeff of Julian 13.6, Plt Count 349, MPV 9.3, Immature Gran % (Auto) 0.300, Neut % (Auto) 79.5 H, Lymph % (Auto) 12.8 L, [place] % (Auto) 6.6, Eos % (Auto) 0.6, Baso % (Auto) 0.2, Absolute Neuts (auto) 8.8 H, Absolute Lymphs (auto) 1.42, Nucleated RBC % 0 Imaging Radiology Impression Abdomen/Pelvis CT 02/05/25 22:35 IMPRESSION: Findings are suggestive of colonic diverticulosis with diverticulitis and related angela-colic collection/contained perforated diverticulum associated with inflammatory changes of the appendix/ appendicitis with possible perforation of its tip merging with pelvic air loculi and fluid densities. Small bowel obstruction showing change of caliber at the level of collapsed ileal loops showing wall thickening, possibly inflammatory bowel related intestinal obstruction rather than ileus. Advise clinico-laboratory correlation. Reading Location: [place] [address] Assessment & Plan Assessment/Plan (1) Diverticulitis of intestine with abscess: (2) Ileus: PLAN: Plan Reviewed CT abdomen pelvis and discussed with the patient. Likely patient had perforated diverticulitis with a small abscess however this did occur likely a couple days ago. Discussed trying to treat this conservatively with IV antibiotics --may need interval appendectomy in the future. Discussed with patient that surgery now may have more risk due to the inflammation that is currently sudden over the last couple days. Okay for ice chips sparingly, sips otherwise n.p.o. except medication Continue IV Zosyn Continue pain control White blood count down to 11 from 18 Likely plan to repeat a CAT scan in a couple days. Did discuss with patient that if anything got worse white blood count, fever, pain may consider a more urgent operation which would start likely laparoscopic but would have a higher chance of going open. Patient is agreeable with plan. Rosie Monsalve M.D. Pager: [phone] [facility] [address] [place] [address], [facility], [address] [place] [address] Office: [phone] Charges/Coding Visit Charges Inpatient E&M: 82466 Init Hosp L3 D/C Safety Score for UGIB Assessment Lin-Blatchford Bleeding Score (GBS): Stratifies upper GI bleeding patients who are "low-risk" and candidates for outpatient management. Sex: Male Hemoglobin, BUN, Recent Vital Signs: Hgb 14.2 g/dL (13.0-16.5) 02/06/25 06:25 BUN 13 mg/dL (4-19) 02/05/25 22:57 Pulse Rate 109 Blood Pressure 159/83 Total Risk Score: 2 Score Interpretation: Score of 0: A GBS of 0 is a “Low Risk” GI bleed, and is highly sensitive (99.6% in a 2007 retrospective study) for predicting which patients did not require any “medical intervention”: blood transfusion, endoscopy, or surgery. This was confirmed in a 2009 [facility] study where patients with a score of 0 were actually discharged and had no GI bleeding mortality at 6 month followup Score above 0: A GBS greater than zero suggests a “High Risk” GI bleed that is likely to require “medical intervention”: transfusion, endoscopy, or surgery. A higher GBS also correlated with a higher likelihood of needing intervention Scores >/= 6 are associated with >50% risk of needing intervention D/C Safety Score for LGIB Assessment Assessment Tool: Readmission and adverse event risk in patients with acute lower GI bleeding. Age, in years: 40-69 Sex: Male Hemoglobin and Recent Vital Signs: Hgb 14.2 g/dL (13.0-16.5) 02/06/25 06:25 Pulse Rate 109 02/06/25 05:30 Blood Pressure 159/83 02/06/25 05:30 Probability of safe discharge: 99% Total Risk Score: 2 Score Interpretation: Probability Percentage of safe discharge (absence of rebleeding, blood transfusion, therapeutic intervention, 28 day readmission, or ) Score of 8 or below: Consider discharge, with appropriate precautions. Score of 9 or above: Discharge NOT recommended. Consider admission with further workup and resuscitation as necessary.
[2025-02-06 07:41] LABS: Anion Gap 12 (5-15); BUN 15 mg/dL (4-19); BUN/Creat Ratio 17.2 RATIO (10-20); Calcium,Total 8.6 mg/dL (7.6-11.0); Carbon Dioxide 20.2 mmol/L (21.0-32.0); Chloride 102 mmol/L (98-108); Estimated Creatinine Clearance 121.61 ml/min (50-250); Glucose 166 mg/dL (70-99); Potassium 4.0 mmol/L (3.3-5.1)
[2025-02-06] MEDS: 0.9% Saline Lock 10 ML Syringe IV (09:05)
--- NOTE | 2025-02-06 12:49 | CASEMGMT ---
Dx:perf appendicitis LACE:1 6-Clicks:24 Medical record reviewed and patient evaluated for identification of discharge planning needs. Based on this review, at this time criteria are not present to indicate a need for discharge planning. Will remain available to assist with discharge planning needs as identified or requested.
[2025-02-07 03:00] VITALS: BP 147/90; PULSE 97; RESP 18; TEMP 36.8; O2SAT 94
[2025-02-07] MEDS: 0.9% Normal Saline (1000mL) 1,000 ML 120 ML IV ×3 (03:02→21:35)
[2025-02-07 06:00] LABS: Hematocrit 40.4 % (40-54); Hemoglobin 13.3 g/dL (13.0-16.5); Immature Granulocytes Count 0.030 X10^3/uL (0.0-0.0); Mean Corp Hgb Conc 32.9 g/dL (32-36); Mean Corpuscular Volume 83.1 fL (80-94); Mean Platelet Vol. 9.5 fl (6.2-12.0); NRBC Flagged by Analyzer 0 % (0-5); POSITIVE MORPHOLOGY YES; Platelet Count 371 K/mm3 (150-450); RBC Distribution Width CV 13.6 % (11.6-14.6); RBC Distribution Width SD 41.5 fl (35.1-43.9); Red Blood Count 4.86 M/mm3 (4.6-6.2); White Blood Count 5.4 K/mm3 (4.4-11.0)
[2025-02-07 06:03] LABS: Differential Indicated SCAN CRITERIA MET
[2025-02-07] MEDS: Piperacil/Tazobactam 3.375 GM in 0.9% Normal Saline (50mL MB+) 50 ML IV ×3 (06:19→21:36)
[2025-02-07 06:27] LABS: Anion Gap 11 (5-15); BUN 21 mg/dL (4-19); BUN/Creat Ratio 27.9 RATIO (10-20); Calcium,Total 8.3 mg/dL (7.6-11.0); Carbon Dioxide 20.1 mmol/L (21.0-32.0); Chloride 104 mmol/L (98-108); Estimated Creatinine Clearance 141.07 ml/min (50-250); Glucose 124 mg/dL (70-99); Potassium 3.8 mmol/L (3.3-5.1)
--- NOTE | 2025-02-07 07:19 | PCM.PN.SRG ---
Subjective Subjective Patient evaluated resting in bed. Patient appears more anxious this morning and worried about getting out to go back to work. He notes nausea.Denies vomiting. He states he is very thirsty. He notes feeling more bloated this morning. He denies any flatus or bowel movement. He seems agitated that we are not doing surgery and that he remains hospitalized. Objective Data Objective Data Vital Signs: Vital Signs Temp Pulse Resp BP Pulse Ox O2 Del Method 98.2 F 97 18 147/90 H 94 Room Air 02/07/25 03:00 02/07/25 03:00 02/07/25 03:00 02/07/25 03:00 02/07/25 03:00 02/07/25 03:00 Oxygen Delivery Method Room Air Weight: 240 lb 4.862 oz Body Mass Index (BMI) 36.5 Intake & Output: Intake and Output for Last 24 Hours 02/05/25 02/06/25 02/07/25 23:59 23:59 23:59 Intake Total 1000 / 1000 2230 / 2230 964 / 964 Balance 1000 / 1000 2230 / 2230 964 / 964 Lab / Micro Data 02/07/25 05:45 02/07/25 05:45 Labs: Laboratory Results - last 24 hr 02/06/25 06:25: Sodium 133, Potassium 4.0, Chloride 102, Carbon Dioxide 20.2 L, Anion Gap 12, BUN 15, Creatinine 0.87, Estim Creat Clear Calc 121.61, Est GFR (MDRD) Non-Af 105, BUN/Creatinine Ratio 17.2, Glucose 166 H, Calcium 8.6 02/07/25 05:45: WBC 5.4, RBC 4.86, Hgb 13.3, Hct 40.4, MCV 83.1, MCH 27.4, MCHC 32.9, RDW Std Deviation 41.5, RDW Coeff of Julian 13.6, Plt Count 371, MPV 9.5, Immature Gran % (Auto) 0.600, Neut % (Auto) 61.0, Lymph % (Auto) 24.3, [place] % (Auto) 12.2 H, Eos % (Auto) 1.3, Baso % (Auto) 0.6, Absolute Neuts (auto) 3.3, Absolute Lymphs (auto) 1.31, Nucleated RBC % 0, Sodium 136, Potassium 3.8, Chloride 104, Carbon Dioxide 20.1 L, Anion Gap 11, BUN 21 H, Creatinine 0.75, Estim Creat Clear Calc 141.07, Est GFR (MDRD) Non-Af 110, BUN/Creatinine Ratio 27.9 H, Glucose 124 H, Calcium 8.3 Physical Exam Const General Appearance: anxious GI GI Narrative: Abdomen- firm, distended. Pain in the RLQ with palpation. Hypoactive bowel sounds. Assessment & Plan Assessment/Plan (1) Diverticulitis of intestine with abscess: QUALIFIERS: Diverticulitis bleeding: without bleeding Diverticulitis site: large intestine Qualified Code(s): K57.20 - Diverticulitis of large intestine with perforation and abscess without bleeding (2) Ileus: (3) Appendicitis: QUALIFIERS: Appendicitis type: other Qualified Code(s): K36 - Other appendicitis PLAN: Plan I am following this patient in conjunction with Dr. Monsalve. She will independently evaluate this patient. Labs reviewed. WBC normal today Patient's CT scan confirms acute ruptured diverticulitis with an enlarged appendix along with a ileus picture I have discussed along with Dr. Monsalve that the plan is for conservative measures with IV antibiotics, IV fluids and bowel rest Patient continues to have pain and will need to remain NPO Patient has inquired multiple times why we would not be able to take him to surgery. Surgery would likely include a high possibility of an ileostomy creation if need to be taken urgently. Indications to perform surgery urgently would be worsening white count, fevers, overall worsening abdominal pain. Patient would need an interval appendectomy in the future Plan would be to repeat a CT scan of ab/pel with contrast tomorrow Patient has voiced his concerns about missing work and the ability to support himself financially. I have recommended the patient contact his HR department through his employer to discuss options. We will continue to monitor this patient Charges/Coding Visit Charges Inpatient E&M: 64936 Subs Hosp L2
[2025-02-07 07:39] LABS: Reactive Lymphocyte RARE
[2025-02-07 08:08] VITALS: BP 134/89; PULSE 94; RESP 20; TEMP 37.7; O2SAT 95
[2025-02-07] MEDS: Pantoprazole Sodium 40 MG in 0.9% Normal Saline (100mL MB+) 100 ML 300 MG IV (10:38)
[2025-02-07 11:08] VITALS: BP 143/88; PULSE 93; RESP 18; TEMP 37.1
[2025-02-07] MEDS: 0.9% Saline Lock 10 ML Syringe IV (14:21)
[2025-02-07 17:27] VITALS: BP 132/85; PULSE 87; RESP 16; TEMP 36.8; O2SAT 96
[2025-02-07 21:20] VITALS: BP 144/99; PULSE 79; RESP 18; TEMP 36.7; O2SAT 97
[2025-02-08 02:06] VITALS: BP 114/60; PULSE 77; RESP 18; TEMP 36.5; O2SAT 98
[2025-02-08] MEDS: Piperacil/Tazobactam 3.375 GM in 0.9% Normal Saline (50mL MB+) 50 ML IV ×3 (05:10→21:45)
[2025-02-08] MEDS: 0.9% Normal Saline (1000mL) 1,000 ML 120 ML IV ×2 (05:11→16:12)
[2025-02-08 06:53] LABS: Hematocrit 40.1 % (40-54); Hemoglobin 12.8 g/dL (13.0-16.5); Immature Granulocytes Count 0.030 X10^3/uL (0.0-0.0); Mean Corp Hgb Conc 31.9 g/dL (32-36); Mean Corpuscular Volume 84.8 fL (80-94); Mean Platelet Vol. 9.3 fl (6.2-12.0); NRBC Flagged by Analyzer 0 % (0-5); Platelet Count 385 K/mm3 (150-450); RBC Distribution Width CV 13.7 % (11.6-14.6); RBC Distribution Width SD 42.8 fl (35.1-43.9); Red Blood Count 4.73 M/mm3 (4.6-6.2); White Blood Count 6.9 K/mm3 (4.4-11.0)
--- NOTE | 2025-02-08 06:57 | CT_ITS ---
PROCEDURE: ABDOMEN/PELVIS WITH CONTRAST 02/08/2025 REASON FOR EXAM: DIVERTICULITIS WITH ABSCESS TECHNIQUE: Procedure Code: [id number] Modality: CT Procedure: ABDOMEN/PELVIS WITH CONTRAST Coronal and Sagittal reconstruction series were provided. CONTRAST: Isovue-300 VOLUME: 94 mL One or more dose reduction techniques were used (e.g., Automated exposure control, adjustment of the mA and/or kV according to patient size, use of iterative reconstruction technique. RADIATION DOSE SUMMARY: CTDlvol: 30 mGy DLP: 1435 mGycm COMPARISON: February 05, 2025 FINDINGS: Lung bases: Mild architectural distortion, volume loss/atelectasis right lung base. Scant right pleural fluid. Liver: Mild fatty liver. Gallbladder: Normal. Spleen: None Pancreas: Normal Adrenals: Normal Kidneys: Normal Bladder: Normal Reproductive Organs: Normal Bowel: The circumferential thickening and pericolonic stranding involving the sigmoid has decreased but not resolved. This is complicated by an inflammatory tract and and ill-defined collection. The origin of the tract was better shown on prior exam and is currently on image 93 adjacent to the sigmoid. This tract courses anteriorly and centrally and then towards the right lower quadrant. A few tiny collections are shown associated with this. An index collection is approximately 7.5 x 3.4 x 2.2 cm centrally. Smaller collection towards the left is 1.7 x 1.3 cm. This is associated with some mesenteric congestion of the small bowel. Small bowel loops in the midabdomen are dilated and fluid-filled but not particularly thickened. There is a gentle transition towards the site of the inflammation. The bowel loops distal to this are normal caliber. The ascending colon, transverse colon and descending colon are normal. The rectum is unremarkable. Appendix: Normal Lymph nodes: None appear enlarged. Vasculature: Mild atherosclerotic plaque. No aneurysm. Peritoneum / Retroperitoneum: See the bowel section Bones: Bridging osteophytes lower thoracic spine. Lower lumbar facet hypertrophy and lumbosacral disc space narrowing. CT/Abdomen/Pelvis WITH Contrast IMPRESSION: 1. Complicated sigmoid diverticulitis with irregular, ill-defined mesenteric t ract and ill-defined fluid collections. These collections are slightly larger. The irregularity, central position makes perc utaneous drainage not possible at this time. 2. Slight decrease in the inflammation associated with the sigmoid colon. 3. Ileus versus partial mechanical small bowel obstruction with a transition n ear the site of inflammatory change/fluid collection. Reading Location: [facility]
[2025-02-08 07:15] LABS: Anion Gap 12 (5-15); BUN 15 mg/dL (4-19); BUN/Creat Ratio 20.3 RATIO (10-20); Calcium,Total 8.5 mg/dL (7.6-11.0); Carbon Dioxide 21.3 mmol/L (21.0-32.0); Chloride 100 mmol/L (98-108); Estimated Creatinine Clearance 144.93 ml/min (50-250); Glucose 107 mg/dL (70-99); Potassium 3.3 mmol/L (3.3-5.1)
--- NOTE | 2025-02-08 07:51 | PCM.PN.SRG ---
Subjective Subjective Patient states the pain has resolved, however he does feel bloated. Has been having some diarrhea. Just had CT abdomen pelvis done this morning Objective Data Objective Data Vital Signs: Vital Signs Temp Pulse Resp BP Pulse Ox O2 Del Method 97.7 F L 77 18 114/60 98 Room Air 02/08/25 02:06 02/08/25 02:06 02/08/25 02:06 02/08/25 02:06 02/08/25 02:06 02/08/25 02:11 Oxygen Delivery Method Room Air Weight: 240 lb 4.862 oz Body Mass Index (BMI) 36.5 Intake & Output: Intake and Output for Last 24 Hours 02/06/25 02/07/25 02/08/25 23:59 23:59 23:59 Intake Total 2230 / 2230 3732 / 3732 2662 / 2662 Balance 2230 / 2230 3732 / 3732 2662 / 2662 Lab / Micro Data 02/08/25 06:34 02/08/25 06:34 Labs: Laboratory Results - last 24 hr 02/08/25 06:34: WBC 6.9, RBC 4.73, Hgb 12.8 L, Hct 40.1, MCV 84.8, MCH 27.1, MCHC 31.9 L, RDW Std Deviation 42.8, RDW Coeff of Julian 13.7, Plt Count 385, MPV 9.3, Immature Gran % (Auto) 0.400, Neut % (Auto) 49.2, Lymph % (Auto) 36.9, [place] % (Auto) 10.0, Eos % (Auto) 3.2, Baso % (Auto) 0.3, Absolute Neuts (auto) 3.4, Absolute Lymphs (auto) 2.54, Nucleated RBC % 0, Sodium 134, Potassium 3.3, Chloride 100, Carbon Dioxide 21.3, Anion Gap 12, BUN 15, Creatinine 0.73, Estim Creat Clear Calc 144.93, Est GFR (MDRD) Non-Af 111, BUN/Creatinine Ratio 20.3 H, Glucose 107 H, Calcium 8.5 Physical Exam Const oriented x3 and no apparent distress Resp normal respiratory effort Cardio regular rate GI Negative for non-tender Inspection: abdominal distention Assessment & Plan Assessment/Plan (1) Diverticulitis of intestine with abscess: QUALIFIERS: Diverticulitis site: large intestine Diverticulitis bleeding: without bleeding Qualified Code(s): K57.20 - Diverticulitis of large intestine with perforation and abscess without bleeding (2) Ileus: (3) Appendicitis: QUALIFIERS: Appendicitis type: other Qualified Code(s): K36 - Other appendicitis PLAN: Plan Patient's repeat CAT scan does still show an ileus with contrast in the small bowel. Will change patient back to sips and chips from the clears until more bowel function. Await CAT scan read. Continue IV Zosyn white blood count 6.9 Encourage ambulation Continue conservative management. Rosie Monsalve M.D. Pager: [phone] [facility] [address] [place] [address], [facility], [address] [place] [address] Office: [phone] Charges/Coding Visit Charges Inpatient E&M: 56435 Subs Hosp L2
[2025-02-08 09:28] VITALS: BP 124/84; PULSE 75; RESP 18; TEMP 36.5; O2SAT 97
[2025-02-08] MEDS: Pantoprazole Sodium 40 MG in 0.9% Normal Saline (100mL MB+) 100 ML 300 MG IV (11:41)
[2025-02-08 16:33] VITALS: BP 119/91; PULSE 82; RESP 18; TEMP 36.5; O2SAT 98
[2025-02-08] MEDS: Nicotine 2mg Gum (PBKC) 2 MG GUM PO ×2 (19:30→21:52)
[2025-02-08 21:37] VITALS: BP 130/81; PULSE 69; RESP 18; TEMP 36.6; O2SAT 98
[2025-02-09 03:30] VITALS: BP 137/88; PULSE 79; RESP 18; TEMP 36.4; O2SAT 100
[2025-02-09] MEDS: 0.9% Normal Saline (1000mL) 1,000 ML 120 ML IV ×3 (03:35→19:35)
[2025-02-09] MEDS: Nicotine 2mg Gum (PBKC) 2 MG GUM PO ×2 (03:35→19:46)
--- NOTE | 2025-02-09 04:52 | NURSING ---
Encouraged patient to walk in halls and room. Pt walked halls a couple of times last night.
[2025-02-09 04:54] LABS: Hematocrit 39.5 % (40-54); Hemoglobin 12.7 g/dL (13.0-16.5); Immature Granulocytes Count 0.080 X10^3/uL (0.0-0.0); Mean Corp Hgb Conc 32.2 g/dL (32-36); Mean Corpuscular Volume 82.6 fL (80-94); Mean Platelet Vol. 9.2 fl (6.2-12.0); NRBC Flagged by Analyzer 0 % (0-5); Platelet Count 386 K/mm3 (150-450); RBC Distribution Width CV 13.5 % (11.6-14.6); RBC Distribution Width SD 40.7 fl (35.1-43.9); Red Blood Count 4.78 M/mm3 (4.6-6.2); White Blood Count 9.1 K/mm3 (4.4-11.0)
[2025-02-09 05:25] LABS: Anion Gap 12 (5-15); BUN 9 mg/dL (4-19); BUN/Creat Ratio 11.7 RATIO (10-20); Calcium,Total 8.5 mg/dL (7.6-11.0); Carbon Dioxide 20.6 mmol/L (21.0-32.0); Chloride 102 mmol/L (98-108); Estimated Creatinine Clearance 139.21 ml/min (50-250); Glucose 90 mg/dL (70-99); Potassium 3.5 mmol/L (3.3-5.1)
[2025-02-09] MEDS: Piperacil/Tazobactam 3.375 GM in 0.9% Normal Saline (50mL MB+) 50 ML IV ×3 (05:40→21:11)
--- NOTE | 2025-02-09 09:05 | PCM.PN.SRG ---
Subjective Subjective Patient has been having some flatus with bowel movements which are liquid. Patient states abdomen is less distended but is still bloated from baseline. Patient denies any nausea or vomiting. Objective Data Objective Data Vital Signs: Vital Signs Temp Pulse Resp BP Pulse Ox O2 Del Method 97.5 F L 79 18 137/88 H 100 Room Air 02/09/25 03:30 02/09/25 03:30 02/09/25 03:30 02/09/25 03:30 02/09/25 03:30 02/09/25 03:30 Oxygen Delivery Method Room Air Weight: 240 lb 4.862 oz Body Mass Index (BMI) 36.5 Intake & Output: Intake and Output for Last 24 Hours 02/07/25 02/08/25 02/09/25 23:59 23:59 23:59 Intake Total 3732 / 3732 4212 / 4212 1180 / 1180 Balance 3732 / 3732 4212 / 4212 1180 / 1180 Lab / Micro Data 02/09/25 04:34 02/09/25 04:34 Labs: Laboratory Results - last 24 hr 02/09/25 04:34: WBC 9.1, RBC 4.78, Hgb 12.7 L, Hct 39.5 L, MCV 82.6, MCH 26.6 L, MCHC 32.2, RDW Std Deviation 40.7, RDW Coeff of Julian 13.5, Plt Count 386, MPV 9.2, Immature Gran % (Auto) 0.900, Neut % (Auto) 63.9, Lymph % (Auto) 24.7, [place] % (Auto) 7.5, Eos % (Auto) 2.3, Baso % (Auto) 0.7, Absolute Neuts (auto) 5.8, Absolute Lymphs (auto) 2.24, Nucleated RBC % 0, Sodium 135, Potassium 3.5, Chloride 102, Carbon Dioxide 20.6 L, Anion Gap 12, BUN 9, Creatinine 0.76, Estim Creat Clear Calc 139.21, Est GFR (MDRD) Non-Af 110, BUN/Creatinine Ratio 11.7, Glucose 90, Calcium 8.5 Physical Exam Const oriented x3 and no apparent distress Resp normal respiratory effort Cardio regular rate GI soft to palpation; Negative for non-tender GI Narrative: Mild to moderate abdominal distention Assessment & Plan Assessment/Plan (1) Diverticulitis of intestine with abscess: QUALIFIERS: Diverticulitis site: large intestine Diverticulitis bleeding: without bleeding Qualified Code(s): K57.20 - Diverticulitis of large intestine with perforation and abscess without bleeding (2) Ileus: (3) Appendicitis: QUALIFIERS: Appendicitis type: other Qualified Code(s): K36 - Other appendicitis PLAN: Plan Okay for clears will check KUB Continue IV Zosyn white blood count 6.[address] Continue conservative management. Rosie Monsalve M.D. Pager: [phone] [facility] [address] [place] [address], [address] [place] [address] Office: [phone] Charges/Coding Visit Charges Inpatient E&M: 80804 [facility] Hosp L2
--- NOTE | 2025-02-09 09:10 | RAD_ITS ---
PROCEDURE: ABD DECUB AND/OR ERECT(PORTABL 02/09/2025 REASON FOR EXAM: CHECK PROGRESSION TECHNIQUE: Procedure Code: [id number]_P Modality: DX Procedure: ABD DECUB AND/OR ERECT(PORTABL COMPARISON: 08 February 2025 FINDINGS: Contrast progression is seen to the level of the descending as well as sigmoid colonic segments with multiple colonic diverticula. Dilated segments of small bowel with differential air-fluid levels are again noted. Coarse pulmonary markings in the lung bases. Degenerative changes of the spine, hips, and pelvis. RAD/Abd Decub and/or Erect(Portabl IMPRESSION: Progression of enteric contrast to the level of the sigmoid colon excluding com plete bowel obstruction. Findings favor an ileus versus partial small bowel obstruction. Reading Location: [id number]
[2025-02-09 09:24] VITALS: BP 121/80; PULSE 75; RESP 16; TEMP 36.2; O2SAT 99
[2025-02-09] MEDS: Pantoprazole Sodium 40 MG in 0.9% Normal Saline (100mL MB+) 100 ML 300 MG IV (10:51)
[2025-02-09 16:50] VITALS: BP 103/81; PULSE 80; RESP 18; TEMP 36.3; O2SAT 97
[2025-02-09 21:05] VITALS: BP 127/80; PULSE 75; RESP 18; TEMP 36.5; O2SAT 100
[2025-02-10] MEDS: 0.9% Normal Saline (1000mL) 1,000 ML 120 ML IV (02:46)
[2025-02-10 02:50] VITALS: BP 112/73; PULSE 79; RESP 18; TEMP 36.8; O2SAT 97
[2025-02-10] MEDS: Piperacil/Tazobactam 3.375 GM in 0.9% Normal Saline (50mL MB+) 50 ML IV ×2 (05:17→14:30)
[2025-02-10 06:57] LABS: Hematocrit 39.1 % (40-54); Hemoglobin 12.8 g/dL (13.0-16.5); Immature Granulocytes Count 0.300 X10^3/uL (0.0-0.0); Mean Corp Hgb Conc 32.7 g/dL (32-36); Mean Corpuscular Volume 82.0 fL (80-94); Mean Platelet Vol. 9.4 fl (6.2-12.0); NRBC Flagged by Analyzer 0 % (0-5); Platelet Count 420 K/mm3 (150-450); RBC Distribution Width CV 13.6 % (11.6-14.6); RBC Distribution Width SD 40.3 fl (35.1-43.9); Red Blood Count 4.77 M/mm3 (4.6-6.2); White Blood Count 9.6 K/mm3 (4.4-11.0)
[2025-02-10 08:12] LABS: Anion Gap 10 (5-15); BUN 6 mg/dL (4-19); BUN/Creat Ratio 7.1 RATIO (10-20); Calcium,Total 8.6 mg/dL (7.6-11.0); Carbon Dioxide 21.9 mmol/L (21.0-32.0); Chloride 102 mmol/L (98-108); Estimated Creatinine Clearance 132.25 ml/min (50-250); Glucose 109 mg/dL (70-99); Potassium 3.4 mmol/L (3.3-5.1)
--- NOTE | 2025-02-10 08:50 | RAD_ITS ---
PROCEDURE: ABDOMEN SINGLE VIEW 02/10/2025 REASON FOR EXAM: ILEUS TECHNIQUE: Procedure Code: RADABD Modality: DX Procedure: ABDOMEN SINGLE VIEW COMPARISON: Yesterday FINDINGS: Bowel gas: Borderline distended air-filled loops of bowel throughout all 4 quadrants of the abdomen consistent with developing obstruction. Additionally, there is retained oral contrast in the ascending colon consistent with motility abnormality. Overall bowel-gas pattern is essentially unchanged from the previous study. Calcifications: No suspicious calcifications, lucent centered phleboliths within the left hemipelvis Bones: Degenerative bony changes Other: No free air RAD/Abdomen Single View IMPRESSION: Dilated air-filled loops of bowel in all 4 quadrants of the abdomen consistent with an obstructive process no interval change Reading Location: [id number]
[2025-02-10] MEDS: Pantoprazole Sodium 40 MG in 0.9% Normal Saline (100mL MB+) 100 ML 300 MG IV (09:51)
--- NOTE | 2025-02-10 10:10 | PN.SURG_ITS ---
Subjective Subjective Patient tolerating clears did state his abdomen is less bloated but still somewhat bloated. Patient is having less bowel movements than yesterday. KUB from this morning shows dilated loops of small bowel as well as still having some small amount of contrast in the colon Objective Data Objective Data Vital Signs: Vital Signs Temp Pulse Resp BP Pulse Ox O2 Del Method 98.3 F 79 18 112/73 97 Room Air 02/10/25 02:50 02/10/25 02:50 02/10/25 02:50 02/10/25 02:50 02/10/25 02:50 02/10/25 02:50 Oxygen Delivery Method Room Air Weight: 240 lb 4.862 oz Body Mass Index (BMI) 36.5 Intake & Output: Intake and Output for Last 24 Hours 02/08/25 02/09/25 02/10/25 23:59 23:59 23:59 Intake Total 4212 / 4212 4638 / 4638 962 / 962 Balance 4212 / 4212 4638 / 4638 962 / 962 Lab / Micro Data 02/10/25 06:26 02/10/25 06:26 Labs: Laboratory Results - last 24 hr 02/10/25 06:26: WBC 9.6, RBC 4.77, Hgb 12.8 L, Hct 39.1 L, MCV 82.0, MCH 26.8 L, MCHC 32.7, RDW Std Deviation 40.3, RDW Coeff of Julian 13.6, Plt Count 420, MPV 9.4, Immature Gran % (Auto) 3.100 H, Neut % (Auto) 60.2, Lymph % (Auto) 25.2, [place] % (Auto) 8.0, Eos % (Auto) 2.7, Baso % (Auto) 0.8, Absolute Neuts (auto) 5.8, Absolute Lymphs (auto) 2.41, Nucleated RBC % 0, Sodium 134, Potassium 3.4, Chloride 102, Carbon Dioxide 21.9, Anion Gap 10, BUN 6, Creatinine 0.80, Estim Creat Clear Calc 132.25, Est GFR (MDRD) Non-Af 108, BUN/Creatinine Ratio 7.1 L, Glucose 109 H, Calcium 8.6 Radiography Diagnostic Testing: Radiology Impression KUB X-Ray 02/10/25 08:50 IMPRESSION: Dilated air-filled loops of bowel in all 4 quadrants of the abdomen consistent with an obstructive process no interval change Reading Location: [facility] Physical Exam Const oriented x3 and no apparent distress Resp normal respiratory effort Cardio regular rate GI soft to palpation; Negative for non-tender GI Narrative: Mild to moderate abdominal distention Assessment & Plan Assessment/Plan (1) Diverticulitis of intestine with abscess: QUALIFIERS: Diverticulitis bleeding: without bleeding D iverticulitis site: large intestine Qualified Code(s): K57.20 - Diverticulitis of large intestine with perforation and abscess without bleeding (2) Ileus: (3) Appendicitis: QUALIFIERS: Appendicitis type: other Qualified Code(s): K36 - Other appendicitis PLAN: Last CT abdomen pelvis did show normal appendix but it is near the area of an abscess PLAN: Plan Okay for fulls patient KUB still shows dilated small bowel. If patient were to DC possibly tomorrow would still likely go home on full liquid/soft diet Continue IV Zosyn white blood count 6.9 Continue amb[address] Continue conservative management. Rosie Monsalve M.D. Pager: [phone] [facility] [address] [place] [address], Outpatient [facility], [address] [place] [address] Office: [phone] Charges/Coding Visit Charges Inpatient E&M: 01368 Subs Hosp L2
[2025-02-10 10:25] VITALS: BP 124/87; PULSE 68; RESP 18; TEMP 36.4; O2SAT 97
--- NOTE | 2025-02-10 10:48 | DCINST_ITS ---
Discharge Instructions Diet Discharge Diet: - (fulls liquids and occasional soft foods like yogurt until office appointment) Activity Discharge Activity: May Drive and May Shower Dressing / Incision Call your doctor if your incision/area has: Increased Pain/ Swelling Call your doctor if you observe: Fever of 101 or Higher Follow Up Care Please Follow Up With: Rosie Monsalve MD When: Call the office for a follow-up appointment early/mid next week can also be with SUSI Randall. Also plan for repeat CAT scan next week Test Results: Test results from this visit will be discussed in further detail at your follow- up appointment, if applicable. Discharge Plan Admission Admit Date/Time: 02/06/25 11:52 Attending Provider: Rosie Monsalve Primary Care Provider: Shoaib Bernard Discharge Orders/Prescriptions Prescriptions: New amoxicillin-pot clavulanate 875-125 mg tablet 1 tab PO Q12H Qty: 28 0RF Continued alprazolam 0.5 mg tablet 0.5 mg PO DAILY PRN (Reason: anxiety) meloxicam 15 mg tablet 15 mg PO DAILY levothyroxine 50 mcg tablet 50 mcg PO DAILY gabapentin 300 mg capsule 300 mg PO QHS rosuvastatin 5 mg tablet 5 mg PO DAILY Referrals / Follow Up: Shoaib Bernard MD [Primary Care Provider, Family Practice] Disposition Disposition (needs filled in before D/C Order can be placed): Home, Self Care
--- NOTE | 2025-02-10 12:37 | NURSING ---
Pt got done eating lunch (full liquids) around "twenty minutes ago". Pt states he had a small liquid bm but no pain or nausea thus far. "It was a small amount of green liquid"
[2025-02-10] MEDS: 0.9% Saline Lock 10 ML Syringe IV (14:31)
--- NOTE | 2025-02-10 16:36 | NURSING ---
Updated Dr. Monsalve that since eating lunch pt has not had any abd pain or nausea. Has had some amts of diarrhea. Dr. Monsalve will send pt home.
[2025-02-10 16:55] VITALS: BP 124/82; PULSE 77; RESP 16; TEMP 37.2; O2SAT 98
--- NOTE | 2025-02-10 20:26 | PCM.DC.SUM ---
Providers Date of Admission: 02/06/25 Primary Care Physician: Dr. Shoaib Bernard MD Reason For Visit: PERF DIVERTICULITIS VS APPENDICITIS Diagnosis Discharge Diagnosis (1) Diverticulitis of intestine with abscess: Status: Acute Code(s): K57.80 - Diverticulitis of intestine, part unspecified, with perforation and abscess without bleeding Qualifiers: Diverticulitis bleeding: without bleeding Diverticulitis site: large intestine Qualified Code(s): K57.20 - Diverticulitis of large intestine with perforation and abscess without bleeding (2) Ileus: Status: Acute Code(s): K56.7 - Ileus, unspecified (3) Appendicitis: Status: Acute Code(s): K37 - Unspecified appendicitis Qualifiers: Appendicitis type: other Qualified Code(s): K36 - Other appendicitis Plan: Last CT abdomen pelvis did show normal appendix but it is near the area of an abscess Plan Okay for fulls patient KUB still shows dilated small bowel. If patient were to DC possibly tomorrow would still likely go home on full liquid/soft diet Continue IV Zosyn white blood count 6.9 Continue amb[address] Continue conservative management. Rosie Monsalve M.D. Pager: [phone] [facility] [address] [place] [address], [facility], [address] [place] [address] Office: [phone] Medications at Discharge Home Medications alprazolam 0.5 mg tablet 0.5 mg PO DAILY PRN anxiety 02/06/25 gabapentin 300 mg capsule 300 mg PO QHS pain 02/06/25 levothyroxine 50 mcg tablet 50 mcg PO DAILY thyroid 02/06/25 meloxicam 15 mg tablet 15 mg PO DAILY inflammatory 02/06/25 rosuvastatin 5 mg tablet 5 mg PO DAILY hld 02/06/25 amoxicillin 875 mg-potassium clavulanate 125 mg tablet 1 tab PO Q12H #28 tabs 02/10/25 Weight / BMI Weight Weight: 240 lb 4.862 oz Body Mass Index (BMI) 36.5 ABG / Lab / Microbiology Data 02/10/25 06:26 02/10/25 06:26 Laboratory: Laboratory Results - last 24 hr 02/10/25 06:26: WBC 9.6, RBC 4.77, Hgb 12.8 L, Hct 39.1 L, MCV 82.0, MCH 26.8 L, MCHC 32.7, RDW Std Deviation 40.3, RDW Coeff of Julian 13.6, Plt Count 420, MPV 9.4, Immature Gran % (Auto) 3.100 H, Neut % (Auto) 60.2, Lymph % (Auto) 25.2, [place] % (Auto) 8.0, Eos % (Auto) 2.7, Baso % (Auto) 0.8, Absolute Neuts (auto) 5.8, Absolute Lymphs (auto) 2.41, Nucleated RBC % 0, Sodium 134, Potassium 3.4, Chloride 102, Carbon Dioxide 21.9, Anion Gap 10, BUN 6, Creatinine 0.80, Estim Creat Clear Calc 132.25, Est GFR (MDRD) Non-Af 108, BUN/Creatinine Ratio 7.1 L, Glucose 109 H, Calcium 8.6 Radiography Diagnostic Testing: Radiology Impression KUB X-Ray 02/10/25 08:50 IMPRESSION: Dilated air-filled loops of bowel in all 4 quadrants of the abdomen consistent with an obstructive process no interval change Reading Location: [id number]/C Instructions Call your doctor if your incision/area has: Increased Pain/ Swelling Call your doctor if you observe: Fever of 101 or Higher DC O2, CPAP, BIPAP Needs Home O2 Discharge instructions: No Please Follow Up With: Rosie Monsalve MD When: Call the office for a follow-up appointment early/mid next week can also be with SUSI Randall. Also plan for repeat CAT scan next week Meaningful Use Info Meaningful Use Meaningful Use Diagnoses (Choose all that apply): None applicable Discharge Plan Admission Admit Date/Time: 02/06/25 11:52 Attending Provider: Rosie Monsalve Primary Care Provider: Shoaib Bernard Discharge Orders/Prescriptions Prescriptions: New amoxicillin-pot clavulanate 875-125 mg tablet 1 tab PO Q12H Qty: 28 0RF Continued alprazolam 0.5 mg tablet 0.5 mg PO DAILY PRN (Reason: anxiety) meloxicam 15 mg tablet 15 mg PO DAILY levothyroxine 50 mcg tablet 50 mcg PO DAILY gabapentin 300 mg capsule 300 mg PO QHS rosuvastatin 5 mg tablet 5 mg PO DAILY Referrals / Follow Up: Shoaib Bernard MD [Primary Care Provider, Family Practice] Disposition Disposition (needs filled in before D/C Order can be placed): Home, Self Care Charges/Coding Visit Charges Inpatient E&M: 46934 Disch Hosp
--- NOTE | 2025-02-11 13:22 | PCM.DC.SUM ---
Providers Date of Admission: 02/06/25 Date of Discharge: 02/10/25 Primary Care Physician: Dr. Shoaib Bernard MD Reason For Visit: PERF DIVERTICULITIS VS APPENDICITIS Diagnosis Discharge Diagnosis (1) Diverticulitis of intestine with abscess: Status: Acute Code(s): K57.80 - Diverticulitis of intestine, part unspecified, with perforation and abscess without bleeding Qualifiers: Diverticulitis site: large intestine Diverticulitis bleeding: without bleeding Qualified Code(s): K57.20 - Diverticulitis of large intestine with perforation and abscess without bleeding (2) Ileus: Status: Acute Code(s): K56.7 - Ileus, unspecified (3) Appendicitis: Status: Acute Code(s): K37 - Unspecified appendicitis Qualifiers: Appendicitis type: other Qualified Code(s): K36 - Other appendicitis Plan: Last CT abdomen pelvis did show normal appendix but it is near the area of an abscess Plan Okay for fulls patient KUB still shows dilated small bowel. If patient were to DC possibly tomorrow would still likely go home on full liquid/soft diet Continue IV Zosyn white blood count 6.9 Continue amb[address] Continue conservative management. Rosie Monsalve M.D. Pager: [phone] [facility] [address] [place] [address], [facility], [address] [place] [address] Office: [phone] Medications at Discharge Home Medications alprazolam 0.5 mg tablet 0.5 mg PO DAILY PRN anxiety 02/06/25 gabapentin 300 mg capsule 300 mg PO QHS pain 02/06/25 levothyroxine 50 mcg tablet 50 mcg PO DAILY thyroid 02/06/25 meloxicam 15 mg tablet 15 mg PO DAILY inflammatory 02/06/25 rosuvastatin 5 mg tablet 5 mg PO DAILY hld 02/06/25 amoxicillin 875 mg-potassium clavulanate 125 mg tablet 1 tab PO Q12H #28 tabs 02/10/25 Hospital Course Operations None Procedures None Summary of Care Provided Minutes Spent on Discharge: 15 Hospital Course: Patient presented due to bilateral lower quadrant abdominal pain. CT abdomen pelvis con perforated diverticulitis with abscess questionable appendicitis and ileus initially. Patient was treated conservatively n.p.o./IV fluids, pain control, IV Zosyn. Patient's pain did resolve over a couple days. Patient still had an ileus repeat CT abdomen pelvis did still show area of abscess patient was able to tolerate a diet clears and full liquids. Patient is very anxious to be DC'd was DC'd home on full liquids plan to follow-up in office this week as well as have a repeat CAT scan likely later this week. Patient was sent home on Augmentin twice daily x 14 days. Weight / BMI Weight Weight: 240 lb 4.862 oz Body Mass Index (BMI) 36.5 ABG / Lab / Microbiology Data 02/10/25 06:26 02/10/25 06:26 D/C Instructions Call your doctor if your incision/area has: Increased Pain/ Swelling Call your doctor if you observe: Fever of 101 or Higher DC O2, CPAP, BIPAP Needs Home O2 Discharge instructions: No Please Follow Up With: Rosie Monsalve MD When: Call the office for a follow-up appointment early/mid next week can also be with SUSI Randall. Also plan for repeat CAT scan next week Meaningful Use Info Meaningful Use Meaningful Use Diagnoses (Choose all that apply): None applicable Discharge Plan Admission Admit Date/Time: 02/06/25 11:52 Attending Provider: Rosie Monsalve Primary Care Provider: Shoaib Bernard Discharge Orders/Prescriptions Prescriptions: New amoxicillin-pot clavulanate 875-125 mg tablet 1 tab PO Q12H Qty: 28 0RF Continued alprazolam 0.5 mg tablet 0.5 mg PO DAILY PRN (Reason: anxiety) meloxicam 15 mg tablet 15 mg PO DAILY levothyroxine 50 mcg tablet 50 mcg PO DAILY gabapentin 300 mg capsule 300 mg PO QHS rosuvastatin 5 mg tablet 5 mg PO DAILY Referrals / Follow Up: Shoaib Bernard MD [Primary Care Provider, Family Practice] Disposition Disposition (needs filled in before D/C Order can be placed): Home, Self Care
== END 2025-02-10 17:39 | disposition home or self-care (01) | DRG 392 ==
LOC: ED 22:45 → MS3 02-06 01:02
PROVIDERS: Physician Assistant; Admitting Provider Surgery; Emergency Provider Student in an Organized Health Care Education/Training Program; PCP Family Medicine; Visit Provider Surgery
DX: K57.20 Diverticulitis of large intestine with perforation and abscess without bleeding (principal); K56.7 Ileus, unspecified; F41.9 Anxiety disorder, unspecified; Z79.899 Other long term (current) drug therapy; K36 Other appendicitis
CPT/HCPCS: 36415; 74018; 74019; 74177; 80048; 80053; 81001; 83690; 85025; 99283; Q9967; A4216; J2405

== ENCOUNTER → 2025-02-14 | Outpatient (CLI) | payer BC, SELFPAY ==
--- NOTE | 2025-02-14 16:50 | CT_ITS ---
PROCEDURE: CT ABDOMEN/PELVIS WITH CONTRAST 02/14/2025 REASON FOR EXAM: DIVERTICULITIS TECHNIQUE: Procedure Code: CTABDPELW Modality: CT Procedure: ABDOMEN/PELVIS WITH CONTRAST Coronal and Sagittal reconstruction series were provided. CONTRAST: Isovue 300 VOLUME: 68 mL One or more dose reduction techniques were used (e.g., Automated exposure control, adjustment of the mA and/or kV according to patient size, use of iterative reconstruction technique. RADIATION DOSE SUMMARY: DLP: 1246.62 mGycm COMPARISON: 04/10/2024 FINDINGS: Lung bases: Clear. Liver: No significant abnormality. Gallbladder: Unremarkable. Spleen: Unremarkable. Pancreas: Unremarkable. Adrenals: Unremarkable. Kidneys: Unremarkable. No hydronephrosis. Bladder: Unremarkable. Reproductive Organs: Unremarkable. Nonenlarged prostate. Bowel: Slight interval decreased inflammatory changes of complicated sigmoid diverticulitis. Persistent small organized fluid collection possibly representing abscess in the lower midabdomen measuring 3.2 cm. Persistent dilatation of the proximal-mid small bowel with transition point in the right lower quadrant likely reflecting partial obstruction versus regional ileus, similar appearance to prior exam. Lymph nodes: No suspicious lymph node enlargement. Multiple shotty subcentimeter reactive mesenteric and retroperitoneal lymph nodes. Vasculature: Normal caliber abdominal aorta. Mild atherosclerotic calcifications. Peritoneum / Retroperitoneum: No drainable ascites or significant free air. Small loculated fluid collections possibly reflecting abscess collections in the lower midabdomen as previously noted. Bones: Mild multilevel degenerative changes of the spine. CT/Abdomen/Pelvis WITH Contrast IMPRESSION: Slightly decreased inflammatory changes of complicated sigmoid diverticulitis. Persistent small organizing free fluid possibly abscess collections in the lower midabdomen, similar to prior exam. Similar dilatation of the proximal-mid small bowel with transition point in the lower mid-right abdomen in the region of the sigmoid inflammatory changes; may reflect partial obstruction or regional ileus . Reading Location: [id number]
== END | disposition home or self-care (01) ==
PROVIDERS: PCP Family Medicine; Referring Provider Physician Assistant; Visit Provider Physician Assistant
DX: K57.20 Diverticulitis of large intestine with perforation and abscess without bleeding (principal); K36 Other appendicitis
CPT/HCPCS: 74177; Q9967

== ENCOUNTER → 2025-02-18 | Outpatient (CLI) | payer BC, SELFPAY ==
[2025-02-18 17:36] LABS: Hematocrit 44.8 % (40-54); Hemoglobin 14.3 g/dL (13.0-16.5); Immature Granulocytes Count 0.060 X10^3/uL (0.0-0.0); Mean Corp Hgb Conc 31.9 g/dL (32-36); Mean Corpuscular Volume 83.9 fL (80-94); Mean Platelet Vol. 9.3 fl (6.2-12.0); NRBC Flagged by Analyzer 0 % (0-5); Platelet Count 570 K/mm3 (150-450); RBC Distribution Width CV 13.2 % (11.6-14.6); RBC Distribution Width SD 40.4 fl (35.1-43.9); Red Blood Count 5.34 M/mm3 (4.6-6.2); White Blood Count 11.5 K/mm3 (4.4-11.0)
[2025-02-18 18:29] LABS: AST(SGOT) 21 U/L (<=37); Alanine Aminotransfer ALT/SGPT 32 U/L (<=46); Albumin, Serum 4.0 g/dL (3.5-5.0); Alkaline Phosphatase 90 U/L (40-129); Anion Gap 13 (5-15); BUN 16 mg/dL (4-19); BUN/Creat Ratio 15.4 RATIO (10-20); Calcium,Total 8.8 mg/dL (7.6-11.0); Carbon Dioxide 23.0 mmol/L (21.0-32.0); Chloride 99 mmol/L (98-108); Globulin 3.1 g/dL (2.2-4.2); Glucose 122 mg/dL (70-99); Potassium 3.9 mmol/L (3.3-5.1)
== END | disposition home or self-care (01) ==
LOC: MTLAB 15:06
PROVIDERS: PCP Family Medicine; Referring Provider Family Medicine; Visit Provider Family Medicine
DX: K57.92 Diverticulitis of intestine, part unspecified, without perforation or abscess without bleeding (principal)
CPT/HCPCS: 36415; 80053; 85025

== ENCOUNTER → 2025-03-04 | Outpatient (CLI) | payer BC, SELFPAY ==
--- NOTE | 2025-03-04 06:17 | CT_ITS ---
PROCEDURE: ABDOMEN/PELVIS WITH CONTRAST 03/04/2025 REASON FOR EXAM: DIVERTICULITIS WITH ABSCESS Abdominal pain. TECHNIQUE: Procedure Code: CTABDPELW Modality: CT Procedure: ABDOMEN/PELVIS WITH CONTRAST Coronal and Sagittal reconstruction series were provided. CONTRAST: Isovue-300 VOLUME: 100 mL oral contrast was administered. One or more dose reduction techniques were used (e.g., Automated exposure control, adjustment of the mA and/or kV according to patient size, use of iterative reconstruction technique. RADIATION DOSE SUMMARY: CTDlvol: 22.76+ 6.65 mGy DLP: 1245.79 mGycm COMPARISON: 14 February 2025 FINDINGS: Lung bases: The lung bases are clear. Liver: Hepatic steatosis. The gallbladder, kidneys, adrenals, spleen, and pancreas are normal. Bladder: The bladder is nondistended and otherwise within normal limits. Bowel: Persistent but improved sigmoid colonic wall thickening with several colonic diverticula. No evidence of bowel obstruction. There has been interval decompression of the small bowel compared to the February 14, 2025 examination. Lymph nodes: Shotty mesenteric and retroperitoneal lymph nodes. Vasculature: Scattered aortic atherosclerotic vascular calcifications without aneurysmal dilatation. Peritoneum / Retroperitoneum: Tiny peripherally enhancing fluid collection in the central abdomen adjacent to the sigmoid segment just inferior to the iliac bifurcation is slightly smaller over the interval. Bones: Degenerative changes of the spine, hips, and pelvis without suspicious lytic or blastic lesion. The soft tissues are otherwise unremarkable. CT/Abdomen/Pelvis WITH Contrast IMPRESSION: Overall improved colonic appearance with persistent but substantially improved colonic wall thickening and pericolonic stranding. The small peripherally enhancing central abdominopelvic fluid collection has al so slightly decreased over the interval. Shotty mesenteric lymph nodes, likely reactive. Consider optical characterization fol lowing acute exacerbation to exclude underlying neoplasm. Reading Location: [id number]
--- OUTSIDE RECORDS SUMMARY | 2025-03-04 06:18 | XMS RPT_ITS | CCD ---
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 on above: Result Comment: mL/m in/1.73m2 CKD-EPI Creatinine Equation (2020) Performed By: #### L 500.4050, L501.2450 ####[facility] [address] [place], [address] Globulin (S) [Mass/Vol] 3.8 g/dL Normal 2.2-4.2 [facility] Comment on above: Performed By: #### L 500.4050, L501.2450 ####[facility] [address] [place], [address] Glucose [Mass/Vol] 156 mg/dL High 70-99 [facility] Comment on above: Performed By: #### L 500.4050, L501.2450 ####[facility] [address] [place], [address] Potassium [Moles/Vol] 4.2 mmol/L Normal 3.3-5.1 [facility] Comment on above: Performed By: #### L 500.4050, L501.2450 ####[facility] [address] [place], [address] Sodium [Moles/Vol] 129 mmol/L Low 133-145 [facility] Comment on above: Performed By: #### L 500.4050, L501.2450 ####[facility] [address] [place], [address] T PROT 7.9 g/dL Normal 5.9-8.4 [facility] Comment on above: Performed By: #### L 500.4050, L501.2450 ####[facility] [address] [place], [address] Urea nitrogen [Mass/Vol] 13 mg/dL Normal 4-19 [facility] Comment on above: Performed By: #### L 500.4050, L501.2450 ####[facility] [address] [place], [address] Emergency Department Summary on 02-05-2025 Emergency Department Summary [facility] Medical Records Department [address] [place] [address] Emergency Department Summary 02/05/25 MR#: [id number] Acct: [id number] Name: VIRGINIA PRABHAKAR Rep #: [id number] : 1975 49 From: Annie Cabrera MD PCP: Dr. Shoaib Bernard MD Status:REG ER Location: ED HPI HPI - GI History of Present Illness Chief Complaint: Abd Pain Narrative Narrative: Patient is a 49-year-old male presenting to the emergency department for right lower quadrant abdominal pain that started on Tuesday. Patient has no significant past medical history. Patient denies any past abdominal surgical history. States Tuesday evening he started to have right lower quadrant pain and it stayed constant since. It does not change location. He endorses decreased appetite however no nausea or vomiting. Denies any fever or chills. Denies any dysuria or hematuria. States his last bowel movement was yesterday and was normal. Denies any scrotal pain or swelling. Denies penial discharge. Denies flank pain. PFSH PFS Medical History Alcohol abuse Depression Anxiety Home Medications ???Medication ???Instructions ???Recorded ???Last Taken ???Type alprazolam 0.5 mg tablet 0.5 mg PO DAILY PRN anxiety Unknown History gabapentin 300 mg capsule 300 mg PO QHS 02/06/25 Unknown His tory levothyroxine 50 mcg tablet 50 mcg PO DAILY 02/06/25 Unknown H istory meloxicam 15 mg tablet 15 mg PO DAILY 02/06/25 Unknown Hi story rosuvastatin 5 mg tablet 5 mg PO DAILY 02/06/25 Unknown His tory Allergy/AdvReac Type Severity Reaction Status Date / Time No Known Allergies Allergy Verified 02/05/25 21:54 Surgical History H/O lumbar discectomy Social History Smoking Status: Never smoker ROS ROS ED ROS Narrative see HPI EXAM Physical Exam Narrative Exam Narrative: Vital signs: Reviewed General: Alert and oriented x 3. No acute distress HEENT: Head is normocephalic and atraumatic, sinuses nontender, pupils equal round and reactive. Nares are patent. Oropharynx and throat exams normal. Neck: Supple without lymphadenopathy nontender Cardiovascular: Tachycardic rate and regular rhythm, no murmurs. No rubs or gallops. Normal S1 and S2 Respiratory: Clear to auscultation bilaterally. No wheezes, rales, rhonchi Abdominal: Soft and tender to palpation in the right lower quadrant. Normal bowel sounds. No guarding or rebound. Extremities: No tenderness. No bruising. Normal range of motion. Normal sensation. Skin: No rash or redness. Neurological: Cranial nerves II through XII are grossly intact. Normal strength and sensation. Normal cerebellar function The rest of the physical exam is unremarkable Const Vital Signs: 02/05/25 21:53 02/05/25 23:52 Temperature 98.4 F 98.6 F Temperature Source Oral Oral Pulse Rate 120 H 105 H Respiratory Rate 18 16 Blood Pressure 151/87 H 142/86 H Blood Pressure Mean 108 104 Pulse Ox 100 95 Oxygen Delivery Method Room Air MDM MDM MDM Narrative Medical decision making narrative: Patient is a 49-year-old male presenting to the emergency department for right lower quadrant abdominal pain that started on Tuesday. Patient was seen and examined. Vitals are stable, he is mildly tachycardic. Resting in bed comfortably no acute distress. Patient given fluids, morphine and Zofran for symptomatic control. Labs and CT imaging ordered. Differential includes but is not limited to, appendicitis, colitis, UTI. CBC with leukocytosis of 18.8 and normal hemoglobin. CMP with no significant abnormalities. Lipase within normal limits. CT of the abdomen pelvis shows findings are suggestive of colonic diverticulosis with diverticulitis and related angela-colic collection/contained perforated diverticulum associated with inflammatory changes of the appendix/ appendicitis with possible perforation of its tip merging with pelvic air loculi and fluid densities. Small bowel obstruction showing change of caliber at the level of collapsed ileal loops showing wall thickening, possibly inflammatory bowel related intestinal obstruction rather than ileus. Zosyn given. General surgery consulted. I spoke with Dr. Monsalve who will admit to her service. Will likely treat with antibiotics for a few days for the inflammation to partially resolve and then proceed with surgical intervention. Patient was updated on the findings and the plan. Clinical impression: Appendicitis Complicated diverticulitis History Record Review Discussion w/independent historian: Patient Lab Data Attestation: I reviewed the patient's lab results. Labs: Laboratory Results - last 24 hr (more content not included)... Normal [facility] Lipaseon 02-05-2025 Lipase [Catalytic activity/Vol] 15 U/L Normal 13-75 [facility] Comment on above: Result Comment: Mu macias note: LIPASE revised reference range effective 22. New Lipase methodology. Expected to produce lower values than the previous assay method. NEW Reference Range: 13 - 75 U/L Performed By: #### L 500.4050, L501.2450 ####[facility] [address] [facility] [place], [address] Chest WITH Contraston 2024 Chest WITH Contrast [facility] [address] [place] [address] Chest WITH Contrast MR#: [id number] Acct: [id number] Name: VIRGINIA PRABHAKAR Rep #: [id number] : 1975 M 49 From: Pavel vasques MD PCP: Dr. Shoaib Bernard MD Status: REG CLI Study: Chest WITH Contrast Date of Exam: 12/06/24 Exam# [id number] Ordering Dr: Shoaib Bernard MD PROCEDURE: CHEST [...] examination. 12 month follow-up recommended. Reading Location: [id number] CC: Dr. Shoaib Bernard MD Regulatory Submissions Associate: Signed Normal [facility] Anion gap in Serum or Plasma Ordered By: Shoaib Bernard on 11-19-2024 Anion gap [Moles/Vol] 13 mmol/L 5-15 [facility] BUN/creatinine ratioOrdered By: Shoaib Bernard on 11-19-2024 Urea nitrogen/Creatinine [Mass ratio] 16.1 mg/mg 10-20 [facility] Bilirubin, totalOrdered By: Shoaib Bernard on 11-19-2024 Bilirubin [Mass/Vol] 0.56 mg/dL 0.00-1.30 [facility] Calculated very low density lipoprotein (VLDL) cholesterol measurementOrdered By: Shoaib Bernard on 11-19-2024 Calculated very low density lipoprotein (VLDL) cholesterol measurement 34 mg/dL 5-40 [facility] Carbon dioxide, total [Moles /volume] in Central venous bloodOrdered By: Shoaib Bernard on 11-19-2024 CO2 [Moles/Vol] 24.8 mmol/L 21.0-32.0 [facility] Chloride assayOrdered By: Walt Bernard on 11-19-2024 Chloride [Moles/Vol] 101 mmol/L 98-108 [facility] Comprehensive Metabolic Prof ilon 11-19-2024 Albumin [Mass/Vol] 4.6 g/dL Normal 3.5-5.0 [facility] Comment on above: Performed By: #### L 506.0400, L500.4100, L500.4050, L501.80256, L501.9520 ####[facility] [address] [place], [place], [address] Albumin/Globulin [Mass ratio] 1.4 {ratio} Normal 0.9-2.4 [facility] Comment on above: Performed By: #### L 506.0400, L500.4100, L500.4050, L501.19158, L501.9520 ####[facility] [address] [place], [address] ALK PHOS 83 U/L Normal 40-129 [facility] Comment on above: Performed By: #### L 506.0400, L500.4100, L500.4050, L501.15217, L501.9520 ####[facility] [address] [place], [address] ALT [Catalytic activity/Vol] 46 U/L Normal <=46 [facility] Comment on above: Performed By: #### L 506.0400, L500.4100, L500.4050, L501.46594, L501.9520 ####[facility] [address] [place], [address] AST [Catalytic activity/Vol] 28 U/L Normal <=37 [facility] Comment on above: Performed By: #### L 506.0400, L500.4100, L500.4050, L501.49859, L501.9520 ####[facility] [address] [place], [address] Bilirubin [Mass/Vol] 0.56 mg/dL Normal 0.00-1.30 [facility] Comment on above: Performed By: #### L 506.0400, L500.4100, L500.4050, L501.52568, L501.9520 ####[facility] [address] [place], [address] BUN/CRE 16.1 RATIO Normal 10-20 [facility] Comment on above: Performed By: #### L 506.0400, L500.4100, L500.4050, L501.90732, L501.9520 ####[facility] [address] [place], [address] Calcium [Mass/Vol] 9.9 mg/dL Normal 7.6-11.0 [facility] Comment on above: Performed By: #### L 506.0400, L500.4100, L500.4050, L501.65465, L501.9520 ####[facility] [address] [place], [address] Chloride [Moles/Vol] 101 mmol/L Normal 98-108 [facility] Comment on above: Performed By: #### L 506.0400, L500.4100, L500.4050, L501.02021, L501.9520 ####[facility] [address] [place], [address] CO2 [Moles/Vol] 24.8 mmol/L Normal 21.0-32.0 [facility] Comment on above: Performed By: #### L 506.0400, L500.4100, L500.4050, L501.57405, L501.9520 ####[facility] [address] [place], [address] Creatinine [Mass/Vol] 0.93 mg/dL Normal 0.70-1.20 [facility] Comment on above: Performed By: #### L 506.0400, L500.4100, L500.4050, L501.79585, L501.9520 ####[facility] [address] [place], [address] GAP 13 Normal 5-15 [facility] Comment on above: Performed By: #### L 506.0400, L500.4100, L500.4050, L501.60526, L501.9520 ####[facility] [address] [place], [address] GFR/1.73 sq M.predicted among non-blacks MDRD (S/P/Bld) [Vol rate/Area] 100 mL/min/{1.73_m2} Normal >60 [facility] Comment on above: Result Comment: mL/m in/1.73m2 CKD-EPI Creatinine Equation (2020) Performed By: #### L 506.0400, L500.4100, L500.4050, L501.58595, L501.9520 ####[facility] [address] [place], [address] Globulin (S) [Mass/Vol] 3.3 g/dL Normal 2.2-4.2 [facility] Comment on above: Performed By: #### L 506.0400, L500.4100, L500.4050, L501.78215, L501.9520 ####[facility] [address] [place], [address] Glucose [Mass/Vol] 88 mg/dL Normal 70-99 [facility] Comment on above: Performed By: #### L 506.0400, L500.4100, L500.4050, L501.00019, L501.9520 ####[facility] [address] [place], [address] Potassium [Moles/Vol] 4.7 mmol/L Normal 3.3-5.1 [facility] Comment on above: Result Comment: Hemo lysis present, Results??could be affected. ?? Performed By: #### L 506.0400, L500.4100, L500.4050, L501.73613, L501.9520 ####[facility] [address] [place], [address] Sodium [Moles/Vol] 138 mmol/L Normal 133-145 [facility] Comment on above: Performed By: #### L 506.0400, L500.4100, L500.4050, L501.09984, L501.9520 ####[facility] [address] [place], [address] T PROT 7.9 g/dL Normal 5.9-8.4 [facility] Comment on above: Performed By: #### L 506.0400, L500.4100, L500.4050, L501.75318, L501.9520 ####[facility] [address] [place], [address] Urea nitrogen [Mass/Vol] 15 mg/dL Normal 4-19 [facility] Comment on above: Performed By: #### L 506.0400, L500.4100, L500.4050, L501.38307, L501.9520 ####[facility] [address] [place], [address] Free T3on 11-19-2024 Free T3 [Mass/Vol] 3.7 pg/mL Normal 2.18-3.98 [facility] Comment on above: Performed By: #### L 506.0400, L500.4100, L500.4050, L501.07179, L501.9520 ####[facility] [address] [place], [address] Free F9Hpwhsce By: Shoaib rodriguez on 11-19-2024 Free T3 [Mass/Vol] 3.7 pg/mL 2.18-3.98 [facility] Glomerular filtration rate ( GFR) estimation/1.73 sq m using serum, plasma, or whole bOrdered By: Shoaib Bernard on 11-19-2024 GFR/1.73 sq M.predicted among non-blacks MDRD (S/P/Bld) [Vol rate/Area] 100 mL/min/{1.73_m2} >60 [facility] Comment on above: mL/min/1.73m2 CKD-EP I Creatinine Equation (2020) LDL calc ser/plasOrdered By: Shoaib Bernard on 11-19-2024 Cholesterol in LDL [Mass/Vol] 94 mg/dL [facility] Comment on above: Wgaemxupbq=133-838 m g/dL & Higher Gwjx=900 mg/dL or greaterFriedwald Equation for LDL-C Laboratory - Chemistry and C hemistry - challengeOrdered By: Shoaib Bernard on 11-19-2024 AST [Catalytic activity/Vol] 28 U/L <38 [facility] Lipid Profileon 11-19-2024 CHOL:HDL 5.00 Normal [facility] Comment on above: Performed By: #### L 506.0400, L500.4100, L500.4050, L501.88216, L501.9520 ####[facility] [address] [place], [address] Cholesterol [Mass/Vol] 161 mg/dL Normal <=200 [facility] Comment on above: Result Comment: Chol esterol level, Desirable <200 mg/dL Borderline high cholesterol 200-239 mg/dL High cholesterol >=240 mg/dL Recommendations of the NCEP Adult Treatment Panel for the following risk-cutoff thresholds for the [place] population. Performed By: #### L 506.0400, L500.4100, L500.4050, L501.82378, L501.9520 ####[facility] [address] [place], [address] Cholesterol in HDL [Mass/Vol] 32 mg/dL Low [facility] Comment on above: Result Comment: Ayleen onal Cholesterol Education Program (NCEP) guidelines: <40 mg/dL: Low HDL-cholesterol (major risk factor for CHD) >= 60 mg/dL: High HDL-cholesterol (negative risk factor for CHD) HDL-cholesterol is affected by a number of factors, e.g. smoking, exercise, hormones, sex and age. Performed By: #### L 506.0400, L500.4100, L500.4050, L501.58451, L501.9520 ####[facility] [address] [place], [address] Cholesterol in LDL [Mass/Vol] 94 mg/dL Normal [facility] Comment on above: Result Comment: Bord fcrwre=162-556 mg/dL Higher Onsq=647 mg/dL or greater Friedwald Equation for LDL-C Performed By: #### L 506.0400, L500.4100, L500.4050, L501.65700, L501.9520 ####[facility] [address] [place], [address] Cholesterol in VLDL [Mass/Vol] 34 mg/dL Normal 5-40 [facility] Comment on above: Performed By: #### L 506.0400, L500.4100, L500.4050, L501.34549, L501.9520 ####[facility] [address] [place], [address] Triglyceride [Mass/Vol] 172 mg/dL Normal [facility] Comment on above: Result Comment: The drugs N-Acetylcysteine and Metamizole may falsely depress this assay. Normal range: <150 mg/dL Borderline High: 150-199 mg/dL High: 200-499 mg/dL Very High: >500 mg/dL Performed By: #### L 506.0400, L500.4100, L500.4050, L501.70256, L501.9520 ####[facility] [address] [place], [address] Potassium measurement (mass/ volume)Ordered By: Shoaib Bernard on 11-19-2024 Potassium (Unsp spec) [Mass/Vol] 4.7 mmol/L 3.3-5.1 [facility] Comment on above: Hemolysis present, R esults could be affected. Screening total cholesterol/ high density lipoprotein (HDL) cholesterol ratioOrdered By: Shoaib Bernard on 11-19-2024 Cholesterol.total/Cho lesterol in HDL [Mass ratio] 5.00 {ratio} [facility] Serum creatinine measurement (mass/volume)Ordered By: Shoaib Bernard on 11-19-2024 Creatinine [Mass/Vol] 0.93 mg/dL 0.70-1.20 [facility] Serum globulin measurementOr dered By: Shoaib Bernard on 11-19-2024 Globulin (S) [Mass/Vol] 3.3 g/dL 2.2-4.2 [facility] Serum glucose measurement (m ass/volume)Ordered By: Shoaib Bernard on 11-19-2024 Glucose [Mass/Vol] 88 mg/dL 70-99 [facility] Serum or plasma alanine medina otransferase (ALT) measurementOrdered By: Shoaib Bernard on 11-19-2024 ALT [Catalytic activity/Vol] 46 U/L <47 [facility] Serum or plasma albumin jessica urement (mass/volume)Ordered By: Shoaib Bernard on 11-19-2024 Albumin [Mass/Vol] 4.6 g/dL 3.5-5.0 [facility] Serum or plasma albumin/glob ulin mass ratioOrdered By: Shoaib Bernard on 11-19-2024 Albumin/Globulin [Mass ratio] 1.4 {ratio} 0.9-2.4 [facility] Serum or plasma alkaline heri sphatase measurementOrdered By: Shoaib Bernard on 11-19-2024 ALP [Catalytic activity/Vol] 83 U/L 40-129 [facility] Serum or plasma calcium jessica urement (mass/volume)Ordered By: Shoaib Bernard on 11-19-2024 Calcium [Mass/Vol] 9.9 mg/dL 7.6-11.0 [facility] Serum or plasma cholesterol in HDL measurement (mass/volume)Ordered By: Shoaib Bernard on 11-19-2024 Cholesterol in HDL [Mass/Vol] 32 mg/dL Low >40 [facility] Comment on above: National Cholesterol Education Program (NCEP) guidelines:<40 mg/dL: Low HDL-cholesterol (major risk factor for CHD)>= 60 mg/dL: High HDL-cholesterol (negative risk factor for CHD)HDL-cholesterol is affected by a number of factors, e.g. smoking, exercise, hormones, sex and age. Serum or plasma cholesterol measurement (mass/volume)Ordered By: Shoaib Bernard on 11-19-2024 Cholesterol [Mass/Vol] 161 mg/dL <201 [facility] Comment on above: Cholesterol level, D esirable <200 mg/dLBorderline high cholesterol 200-239 mg/dLHigh cholesterol >=240 mg/dLRecommendations of the NCEP Adult Treatment Panel for the following risk-cutoff thresholds for the [place] population. Serum or plasma urea nitroge n measurement (mass/volume)Ordered By: Shoaib Bernard on 11-19-2024 Urea nitrogen [Mass/Vol] 15 mg/dL 4-19 [facility] Sodium levelOrdered By: Shoaib Bernard on 11-19-2024 Sodium [Moles/Vol] 138 mmol/L 133-145 [facility] T4 Free Directon 11-19-2024 T4 FREE DIRECT 1.30 ng/dL Normal 0.76-1.46 [facility] Comment on above: Performed By: #### L 506.0400, L500.4100, L500.4050, L501.21047, L501.9520 ####[facility] [id number] [place], [place], [id number] T4 freeOrdered By: Shoaib rodriguez on 11-19-2024 Free T4 [Mass/Vol] 1.30 ng/dL 0.76-1.46 [facility] TSH DL <= 0.005 mIU/L QnOrde red By: Shoaib Bernard on 11-19-2024 TSH Qn 2.470 uIU/mL 0.300-4.200 [facility] Thyroid Stim Hormone (TSH)on 11-19-2024 TSH 2.470 uIU/mL Normal 0.300-4.200 [facility] Comment on above: Performed By: #### L 506.0400, L500.4100, L500.4050, L501.56439, L501.9520 ####[facility] [id number] [place], [address] Total proteinOrdered By: Enid Bernard on 11-19-2024 Protein [Mass/Vol] 7.9 g/dL 5.9-8.4 [facility] Triglycerides measurementOrd ered By: Shoaib Bernard on 11-19-2024 Triglyceride [Mass/Vol] 172 mg/dL <199 [facility] Comment on above: The drugs N-Acetylcy steine and Metamizole may falsely depress this assay. Normal range: <150 mg/dLBorderline High: 150-199 mg/dLHigh: 200-499 mg/dLVery High: >500 mg/dL Low Dose CT Lung Screeningon 06-15-[address] Lung Screening [facility] Imaging Services [address] [place], [place] [id number] Low Dose CT Lung Screening MR#: [id number] Acct: [id number] Name: VIRGINIA PRABHAKAR Rep #: [id number] : 1975 M 49 From: Charlie Day i DO PCP: Dr. Shoaib Bernard MD Status: [facility] Study: Low Dose CT Lung Screening Date of Exam: 06/15 Exam# [id number] Ordering Dr: Shoaib Bernard MD PROCEDURE: LOW [...] use of iterative reconstruction technique). REFERENCE LINK: [facility] Lung-RADS RADIATION DOSE SUMMARY: DLP: 155.52 mGycm [...] is not enlarged. No sizable pericardial effusion. [id number] coronary artery calcifications. No thoracic adenopathy. Thoracic [...] Lung-RADS Category: 3. Probably benign. Reading [facility]: [facility] CC: Dr. Shoaib Bernard MD Regulatory Submissions Associate: Signed Normal [facility] BUN/creatinine ratioOrdered By: Shoaib Bernard on 05-23-2024 Urea nitrogen/Creatinine [Mass ratio] 18.8 mg/mg 10-20 [facility] Basic Metabolic Profile (BMP )on 05-23-2024 Anion gap [Moles/Vol] 13 mmol/L Normal 5-15 [facility] Comment on above: Performed By: #### L 500.2500, L506.0400, L500.4100, L501.00448, L501.9520 #### [facility] [address] [place], [address] BUN/CRE 18.8 RATIO Normal 10-20 [facility] Comment on above: Performed By: #### L 500.2500, L506.0400, L500.4100, L501.99814, L501.9520 #### [facility] [address] [place], [address] Calcium [Mass/Vol] 9.4 mg/dL Normal 7.6-11.0 [facility] Comment on above: Performed By: #### L 500.2500, L506.0400, L500.4100, L501.39071, L501.9520 #### [facility] [address] [place], [address] Chloride [Moles/Vol] 101 mmol/L Normal 96-108 [facility] Comment on above: Performed By: #### L 500.2500, L506.0400, L500.4100, L501.71984, L501.9520 #### [facility] [address] [place], [address] CO2 [Moles/Vol] 20.2 mmol/L Low 22.0-29.0 [facility] Comment on above: Performed By: #### L 500.2500, L506.0400, L500.4100, L501.25402, L501.9520 #### [facility] [address] [place], [address] Creatinine [Mass/Vol] 0.9 mg/dL Normal 0.8-1.3 [facility] Comment on above: Performed By: #### L 500.2500, L506.0400, L500.4100, L501.31709, L501.9520 #### [facility] [address] [place], [address] GFR/1.73 sq M.predicted among non-blacks MDRD (S/P/Bld) [Vol rate/Area] 105 mL/min/{1.73_m2} Normal >60 [facility] Comment on above: Result Comment: mL/m in/1.73m2 CKD-EPI Creatinine Equation (2020) Performed By: #### L 500.2500, L506.0400, L500.4100, L501.64947, L501.9520 #### [facility] [address] [place], [address] Glucose [Mass/Vol] 106 mg/dL High 70-99 [facility] Comment on above: Performed By: #### L 500.2500, L506.0400, L500.4100, L501.98481, L501.9520 #### [facility] [address] [place], [address] Potassium [Moles/Vol] 4.0 mmol/L Normal 3.3-5.1 [facility] Comment on above: Performed By: #### L 500.2500, L506.0400, L500.4100, L501.76271, L501.9520 #### [facility] [address] [place], [address] Sodium [Moles/Vol] 135 mmol/L Normal 133-145 [facility] Comment on above: Performed By: #### L 500.2500, L506.0400, L500.4100, L501.77922, L501.9520 #### [facility] [address] [place], [address] Urea nitrogen [Mass/Vol] 16 mg/dL Normal 4-19 [facility] Comment on above: Performed By: #### L 500.2500, L506.0400, L500.4100, L501.51034, L501.9520 #### [facility] [address] [place], [address] Calculated very low density lipoprotein (VLDL) cholesterol measurementOrdered By: Shoaib Bernard on 05-23-2024 VLDL Cholesterol 34 mg/dL 5-40 [facility] Carbon dioxide measurementOr dered By: Shoaib Bernard on 05-23-2024 CO2 [Moles/Vol] 20.2 mmol/L Low 22.0-29.0 [facility] Chloride measurementOrdered By: Shoaib Bernard on 05-23-2024 Chloride [Moles/Vol] 101 mmol/L 96-108 [facility] Free T3on 05-23-2024 Free T3 [Mass/Vol] 3.3 pg/mL Normal 2.18-3.98 [facility] Comment on above: Performed By: #### L 500.2500, L506.0400, L500.4100, L501.99115, L501.9520 ####[facility] [id number] [place], [place], [id number] Free U2Oiclmrf By: Shoaib rodriguez on 05-23-2024 Free Triiodothyronine (T3) pg/dL 3.3 pg/mL 2.18-3.98 [facility] GFR/1.73 sq M.predicted analilia g non-blacks MDRD (S/P/Bld) [Vol rate/Area]Ordered By: Shoaib Bernard on 05-23-2024 Estimated GFR (MDRD) Non-Af Amer 105 >60 [facility] Comment on above: mL/min/1.73m2 CKD-EP I Creatinine Equation (2020) LDL calc ser/plasOrdered By: Shoaib Bernard on 05-23-2024 LDL Cholesterol, Calculated 122 mg/dL [facility] Comment on above: Cdprqriywe=156-561 m g/dL & Higher Omuk=612 mg/dL or greater Lipid Profileon 05-23-2024 CHOL:HDL 5.17 Normal [facility] Comment on above: Performed By: #### L 500.2500, L506.0400, L500.4100, L501.63831, L501.9520 #### [facility] [address] [place], [address] Cholesterol [Mass/Vol] 193 mg/dL Normal <=200 [facility] Comment on above: Result Comment: Chol esterol level, Desirable <200 mg/dL Borderline high cholesterol 200-239 mg/dL High cholesterol >=240 mg/dL Recommendations of the NCEP Adult Treatment Panel for the following risk-cutoff thresholds for the [place] population. Performed By: #### L 500.2500, L506.0400, L500.4100, L501.85898, L501.9520 #### [facility] [address] [place], [address] Cholesterol in HDL [Mass/Vol] 37 mg/dL Low [facility] Comment on above: Result Comment: Ayleen onal Cholesterol Education Program (NCEP) guidelines: <40 mg/dL: Low HDL-cholesterol (major risk factor for CHD) >= 60 mg/dL: High HDL-cholesterol (negative risk factor for CHD) HDL-cholesterol is affected by a number of factors, e.g. smoking, exercise, hormones, sex and age. Performed By: #### L 500.2500, L506.0400, L500.4100, L501.05411, L501.9520 #### [facility] [address] [place], [address] Cholesterol in LDL [Mass/Vol] 122 mg/dL Normal [facility] Comment on above: Result Comment: Bord zjggql=605-423 mg/dL Higher Tmnh=869 mg/dL or greater Performed By: #### L 500.2500, L506.0400, L500.4100, L501.25399, L501.9520 #### [facility] [address] [place], [address] Cholesterol in VLDL [Mass/Vol] 34 mg/dL Normal 5-40 [facility] Comment on above: Performed By: #### L 500.2500, L506.0400, L500.4100, L501.79065, L501.9520 #### [facility] [address] [place], [address] Triglyceride [Mass/Vol] 169 mg/dL Normal [facility] Comment on above: Result Comment: The drugs N-Acetylcysteine and Metamizole may falsely depress this assay. Normal range: <150 mg/dL Borderline High: 150-199 mg/dL High: 200-499 mg/dL Very High: >500 mg/dL Performed By: #### L 500.2500, L506.0400, L500.4100, L501.18021, L501.9520 #### [facility] [address] [place], [address] Screening total cholesterol/ high density lipoprotein (HDL) cholesterol ratioOrdered By: Shoaib Bernard on 05-23-2024 Cholesterol.total/Cho lesterol in HDL [Mass ratio] 5.17 {ratio} [facility] Serum creatinine measurement (mass/volume)Ordered By: Shoaib Bernard on 05-23-2024 Creatinine [Mass/Vol] 0.9 mg/dL 0.70-1.20 [facility] Serum glucose measurement (m ass/volume)Ordered By: Shoaib Bernard on 05-23-2024 Glucose [Mass/Vol] 106 mg/dL High 70-99 [facility] Serum or plasma anion gap de termination (moles/volume)Ordered By: Shoaib Bernard on 05-23-2024 Anion gap [Moles/Vol] 13 mmol/L 5-15 [facility] Serum or plasma calcium jessica urement (mass/volume)Ordered By: Shoaib Bernard on 05-23-2024 Calcium [Mass/Vol] 9.4 mg/dL 7.6-11.0 [facility] Serum or plasma cholesterol in HDL measurement (mass/volume)Ordered By: Shoaib Bernard on 05-23-2024 Cholesterol in HDL [Mass/Vol] 37 mg/dL Low >40 [facility] Comment on above: National Cholesterol Education Program (NCEP) guidelines:<40 mg/dL: Low HDL-cholesterol (major risk factor for CHD)>= 60 mg/dL: High HDL-cholesterol (negative risk factor for CHD)HDL-cholesterol is affected by a number of factors, e.g. smoking, exercise, hormones, sex and age. Serum or plasma cholesterol measurement (mass/volume)Ordered By: Shoaib Bernard on 05-23-2024 Cholesterol [Mass/Vol] 193 mg/dL <201 [facility] Comment on above: Cholesterol level, D esirable <200 mg/dLBorderline high cholesterol 200-239 mg/dLHigh cholesterol >=240 mg/dLRecommendations of the NCEP Adult Treatment Panel for the following risk-cutoff thresholds for the [place] population. Serum or plasma potassium me asurementOrdered By: Shoaib Bernard on 05-23-2024 Potassium [Moles/Vol] 4.0 mmol/L 3.3-5.1 [facility] Serum or plasma sodium measu rement (moles/volume)Ordered By: Shoaib Bernard on 05-23-2024 Sodium [Moles/Vol] 135 mmol/L 133-145 [facility] Serum or plasma urea nitroge n measurement (mass/volume)Ordered By: Shoaib Bernard on 05-23-2024 Urea nitrogen [Mass/Vol] 16 mg/dL 4-19 [facility] T4 Free Directon 05-23-2024 T4 FREE DIRECT 1.20 ng/dL Normal 0.76-1.46 [facility] Comment on above: Performed By: #### L 500.2500, L506.0400, L500.4100, L501.23721, L501.9520 ####[facility] [id number] [place], [address] T4 freeOrdered By: Shoaib rodriguez on 02-26-2025 Free T4 [Mass/Vol] 1.20 ng/dL 0.76-1.46 [facility] TSH DL <= 0.005 mIU/L QnOrde red By: Shoaib Bernard on 05-23-2024 Thyroid Stimulating Hormone (TSH) 2.580 uIU/mL 0.300-4.200 [facility] Thyroid Stim Hormone (TSH)on 05-23-2024 TSH 2.580 uIU/mL Normal 0.300-4.200 [facility] Comment on above: Performed By: #### L 500.2500, L506.0400, L500.4100, L501.95135, L501.9520 ####[facility] [id number] [place], [address] Triglycerides measurementOrd ered By: Shoaib Bernard on 05-23-2024 Triglyceride [Mass/Vol] 169 mg/dL <199 [facility] Comment on above: The drugs N-Acetylcy steine and Metamizole may falsely depress this assay. Normal range: <150 mg/dLBorderline High: 150-199 mg/dLHigh: 200-499 mg/dLVery High: >500 mg/dL Basophil percentageOrdered B y: Shoaib Bernard on 01-28-2023 Chloride [Moles/Vol] 104 mmol/L 98-107 [facility] Cholesterol [Mass/Vol] 197 mg/dL <200 [facility] Comment on above: <200 mg/dL Desirable 200-240 mg/dL Borderline >240 mg/dL High Risk Glucose [Mass/Vol] 106 mg/dL 74-106 [facility] Comment on above: Fasting Glucose resu lt from 100 to 125 mg/dL suggests IMPAIRED HOMEOSTASIS per A.D.A. criteria. Potassium [Moles/Vol] 4.4 mmol/L 3.5-5.1 [facility] Sodium [Moles/Vol] 135 mmol/L 136-145 [facility] Triglyceride [Mass/Vol] 148 mg/dL <199 [facility] Comment on above: The drugs N-Acetylcy steine and Metamizole may falsely depress this assay.Serum Triglycerides Reference Interval Normal <150 mg/dL Borderline high 150 - 199 mg/dL High 200 - 499 mg/dL Very High > or = 500 mg/dL Laboratory - Chemistry and C hemistry - challengeOrdered By: Shoaib Bernard on 01-28-2023 CO2 [Moles/Vol] 25.0 mmol/L 21.0-32.0 [facility] Urea nitrogen/Creatinine [Mass ratio] 21.9 mg/mg 10-20 [facility] No Panel InformationOrdered By: Shoaib Bernard on 01-28-2023 Estimated GFR (MDRD) Amer 107 mL/min >60 [facility] Comment on above: GFR Calc Estimated GFR (MDRD) Non-Af Amer 89 mL/min >60 [facility] Comment on above: Non- GFR Calc Vitamin D 25-Hydroxy 23.8 ng/mL [facility] Comment on above: Vitamin D 25(OH) Sta tus Range Deficiency <20 ng/mL (50nmol/L) Insufficiency 20 - 30 ng/mL (50 - 75 nmol/L) Sufficiency 30 - 100 ng/mL (75 - 250 nmol/L) Toxicity >100 ng/mL (>250 nmol/L) Serum or plasma calcium jessica urement (mass/volume)Ordered By: Shoaib Bernard on 01-28-2023 Calcium [Mass/Vol] 9.1 mg/dL 8.5-10.1 [facility] Serum or plasma cholesterol in HDL measurement (mass/volume)Ordered By: Shoaib Bernard on 01-28-2023 Cholesterol in HDL [Mass/Vol] 42 mg/dL >40 [facility] Comment on above: The drugs N-Acetylcy steine and Metamizole may falsely depress this assay. Reference Range HDL <40 mg/dL Low HDL Cholesterol HDL >or= 60 mg/dL High HDL Cholesterol Serum or plasma cholesterol in VLDL measurement (mass/volume)Ordered By: Shoaib Bernard on 01-28-2023 Cholesterol in VLDL [Mass/Vol] 30 mg/dL 5-40 [facility] Serum or plasma creatinine m easurement (mass/volume)Ordered By: Shoaib Bernard on 01-28-2023 Creatinine [Mass/Vol] 0.96 mg/dL 0.70-1.30 [facility] Comment on above: The validity of the calculated GFR & GFRAA in patients over 70 years has not been determined. Clinical correlation is essential. Serum or plasma low density lipoprotein (LDL) cholesterol measurement (mass/volume)Ordered By: Shoaib Bernard on 01-28-2023 Cholesterol in LDL [Mass/Vol] 125 mg/dL 0-130 [facility] Serum or plasma urea nitroge n measurement (mass/volume)Ordered By: Shoaib Bernard on 01-28-2023 Urea nitrogen [Mass/Vol] 21 mg/dL 7-18 [facility] Thin prep Papanicolaou smear with manual screeningOrdered By: Shoaib Bernard on 01-28-2023 Thin prep Papanicolaou smear with manual screening 6 5-15 [facility] Absolute lymphocyte counton 04-06-2022 Lymphocytes Auto (Unsp spec) [#/Vol] 2.64 10*3/uL 0.83-4.51 [facility] Work Phone: Basophil percentageon 2022 Basophils/100 WBC (Bld) 1.1 % 0-1 [facility] Work Phone: Bilirubin [Mass/Vol] 0.40 mg/dL 0.20-1.00 [facility] Work Phone: Comment on above: For patients on eltr ombopag therapy, use of [employer] [place] TBIL is not recommended. Chloride [Moles/Vol] 101 mmol/L 98-107 [facility] Work Phone: Cholesterol [Mass/Vol] 246 mg/dL <200 [facility] Work Phone: Comment on above: <200 mg/dL Desirable 200-240 mg/dL Borderline >240 mg/dL High Risk Eosinophils/100 WBC (Bld) 1.5 % 0-5 [facility] Work Phone: Glucose [Mass/Vol] 118 mg/dL 74-106 [facility] Work Phone: Comment on above: Fasting Glucose resu lt from 100 to 125 mg/dL suggests IMPAIRED HOMEOSTASIS per A.D.A. criteria. Neutrophils (Bld) [#/Vol] 4.1 10*3/uL 2.0-7.7 [facility] Work Phone: Neutrophils/100 WBC (Bld) 53.9 % 47-70 [facility] Work Phone: [phone] Potassium [Moles/Vol] 4.2 mmol/L 3.5-5.1 [facility] Work Phone: [phone] Protein [Mass/Vol] 8.1 g/dL 6.4-8.2 [facility] Work Phone: [phone] Sodium [Moles/Vol] 136 mmol/L 136-145 [facility] Work Phone: [phone] Triglyceride [Mass/Vol] 250 mg/dL <199 [facility] Work Phone: [phone] Comment on above: The drugs N-Acetylcy steine and Metamizole may falsely depress this assay.Serum Triglycerides Reference Interval Normal <150 mg/dL Borderline high 150 - 199 mg/dL High 200 - 499 mg/dL Very High > or = 500 mg/dL WBC (Bld) [#/Vol] 7.6 10*3/uL 4.4-11.0 [facility] Work Phone: [phone] Blood erythrocytes count (nu mber/volume)on 04-06-2022 RBC (Bld) [#/Vol] 5.96 10*6/uL 4.6-6.2 [facility] Work Phone: [phone] Blood hemoglobin measurement (mass/volume)on 04-06-2022 Hemoglobin (Bld) [Mass/Vol] 16.2 g/dL 13.0-16.5 [facility] Work Phone: [phone] Blood lymphocytes/100 leukoc yteson 04-06-2022 Lymphocytes/100 WBC (Bld) 34.9 % 19-41 [facility] Work Phone: [phone] Blood monocytes/100 leukocyt eson 04-06-2022 Monocytes/100 WBC (Bld) 7.9 % 0-10 [facility] Work Phone: [phone] Blood platelet mean volumeon 04-06-2022 Platelet mean volume (Bld) [Entitic vol] 9.3 fL 6.2-12.0 [facility] Work Phone: [phone] Determination of erythrocyte mean corpuscular volume (MCV)on 04-06-2022 MCV (RBC) [Entitic vol] 82.7 fL 80-94 [facility] Work Phone: [phone] Hematocrit Auto (Bld) [Volum e fraction]on 04-06-2022 Hematocrit (Bld) [Volume fraction] 49.3 % 40-54 [facility] Work Phone: [phone] Laboratory - Chemistry and C hemistry - challengeon 04-06-2022 ALP [Catalytic activity/Vol] 98 U/L 45-117 [facility] Work Phone: [phone] ALT [Catalytic activity/Vol] 41 U/L 16-61 [facility] Work Phone: [phone] CO2 [Moles/Vol] 27.0 mmol/L 21.0-32.0 [facility] Work Phone: [phone] Cobalamin (Vitamin B12) [Mass/Vol] 482 pg/mL 211-911 [facility] Work Phone: [phone] Free T4 [Mass/Vol] 0.89 ng/dL 0.76-1.46 [facility] Work Phone: [phone] Globulin (S) [Mass/Vol] 4.4 g/dL 2.2-4.2 [facility] Work Phone: [phone] Urea nitrogen/Creatinine [Mass ratio] 14.4 mg/mg 10-20 [facility] Work Phone: [phone] Laboratory - Hematology and Cell countson 04-06-2022 Erythrocyte distribution width (RBC) [Entitic vol] 42.5 fL 35.1-43.9 [facility] Work Phone: [phone] Erythrocyte distribution width (RBC) [Ratio] 14.3 % 11.6-14.6 [facility] Work Phone: [phone] Immature granulocytes/100 WBC (Bld) 0.700 % 0.0-0.9 [facility] Work Phone: [phone] Comment on above: IG% - Immature Granu locytes (promyelocytes, myelocytes and metamyelocytes) > 1% indicates that a LEFT SHIFT is Present. MCH (RBC) [Entitic mass] 27.2 pg 27.0-32.0 [facility] Work Phone: [phone] Nucleated RBC/100 WBC (Bld) [Ratio] 0 % 0-5 [facility] Work Phone: [phone] MCHC Auto (RBC) [Mass/Vol]on 04-06-2022 MCHC (RBC) [Mass/Vol] 32.9 g/dL 32-36 [facility] Work Phone: No Panel Informationon 04-06 Estimated GFR (MDRD) Amer 106 mL/min >60 [facility] Work Phone: [phone] Comment on above: GFR Calc Estimated GFR (MDRD) Non-Af Amer 87 mL/min >60 [facility] Work Phone: [phone] Comment on above: Non- GFR Calc Thyroid Stimulating Hormone (TSH) 3.18 uIU/mL 0.358-3.74 [facility] Work Phone: [phone] Vitamin D 25-Hydroxy 17.8 ng/mL [facility] Work Phone: [phone] Comment on above: Vitamin D 25(OH) Sta tus Range Deficiency <20 ng/mL (50nmol/L) Insufficiency 20 - 30 ng/mL (50 - 75 nmol/L) Sufficiency 30 - 100 ng/mL (75 - 250 nmol/L) Toxicity >100 ng/mL (>250 nmol/L) Platelets bldon 04-06-2022 Platelets (Bld) [#/Vol] 416 10*3/uL 150-450 [facility] Work Phone: [phone] Serum or plasma albumin jessica urement (mass/volume)on 04-06-2022 Albumin [Mass/Vol] 3.7 g/dL 3.2-5.0 [facility] Work Phone: [phone] Serum or plasma albumin/glob ulin mass ratioon 04-06-2022 Albumin/Globulin [Mass ratio] 0.8 {ratio} 0.9-2.4 [facility] Work Phone: [phone] Serum or plasma calcium jessica urement (mass/volume)on 04-06-2022 Calcium [Mass/Vol] 9.1 mg/dL 8.5-10.1 [facility] Work Phone: Serum or plasma cholesterol in HDL measurement (mass/volume)on 04-06-2022 Cholesterol in HDL [Mass/Vol] 40 mg/dL >40 [facility] Work Phone: Comment on above: The drugs N-Acetylcy steine and Metamizole may falsely depress this assay. Reference Range HDL <40 mg/dL Low HDL Cholesterol HDL >or= 60 mg/dL High HDL Cholesterol Serum or plasma cholesterol in VLDL measurement (mass/volume)on 04-06-2022 Cholesterol in VLDL [Mass/Vol] 50 mg/dL 5-40 [facility] Work Phone: [phone] Serum or plasma creatinine m easurement (mass/volume)on 04-06-2022 Creatinine [Mass/Vol] 0.97 mg/dL 0.70-1.30 [facility] Work Phone: Comment on above: The validity of the calculated GFR & GFRAA in patients over 70 years has not been determined. Clinical correlation is essential. Serum or plasma folate measu rement (mass/volume)on 04-06-2022 Folate [Mass/Vol] 15.60 ng/mL 3.1-55.4 [facility] Work Phone: Serum or plasma low density lipoprotein (LDL) cholesterol measurement (mass/volume)on 04-06-2022 Cholesterol in LDL [Mass/Vol] 156 mg/dL 0-130 [facility] Work Phone: [phone] Serum or plasma urea nitroge n measurement (mass/volume)on 04-06-2022 Urea nitrogen [Mass/Vol] 14 mg/dL 7-18 [facility] Work Phone: [phone] Thin prep Papanicolaou smear with manual screeningon 04-06-2022 Thin prep Papanicolaou smear with manual screening 19 U/L 15-37 [facility] Work Phone: [phone] Thin prep Papanicolaou smear with manual screening 8 5-15 [facility] Work Phone: Whole blood hemoglobin A1c/t otal hemoglobin ratio (mass fraction)on 04-06-2022 HbA1c (Bld) [Mass fraction] 6.0 % 3.8-5.6 [facility] Work Phone: Comment on above: Normal < 5.7 % Predi abetic 5.7 - 6.4 % Diabetic >or= 6.5 % Please note range changes. Initial Visit (Orthopaedic S urgery)on 05-08-2020 Initial Visit (Orthopaedic Surgery) Diagnoses/Problems Assessed Other closed fracture of distal end of right fibula, initial encounter (824.8) (N22.726D) Orders Other closed fracture of distal end of right fibula, initial encounter Start: traMADol HCl - 50 MG Oral Tablet; Take 1 tablet every 4 hours Xray Ankle 2 View; Status:Hold For - Scheduling; Requested for:[id number]; Laterality : Right Radiologist to Determine Optimal [...] SWELLING. DOES HAVE CRUTCHES. XRAYS. REFERRED BY [facility]. History of Present Illness Pt [...] NameInstruction Ibuprofen TABS Vitals Vital Signs Recorded: 01Kxz2180 11:11AM Vskzbvxxqct08.7 F Phmonypj843 Rnsuqatwy45 Height5 ft 10 in Ygxtam297 lb 2 oz BMI Uiflgvacze08.28 BSA Calculated2.04 Physical Exam RLE is NVI, ROM deferred, positive swelling in ankle and foot. nontender metatarsal and base of 5th metatarsal, nontender rmedial malleolus, mild tenderness deltoid ligament, exquisite tenderness distal fibula. negative lower leg swelling, negative posterior calf tenderness. Results/Data Xray Ankle 3 Cbgy41Ori2546 08:32AMNon Ambulatory, Provider Ordering Provider: RHONDA MAJOR [id number] Test NameResultFlagReference Xray Ankle 3 View(Report) Interpreted by: AVERY JACKSON 05/07/20 09:30 STUDY: Ankle Radiographs; 05/07/2020 8:05 AM INDICATION: Continued pain and bruising to right ankle post twisting injury 1 1/2 weeks ago. COMPARISON: None Available. ACCESSION NUMBER(S): [id number] ORDERING CLINICIAN: RHONDA MAJOR TECHNIQUE: Three view(s) [...] weeks ago. COMPARISON: None Available. ACCESSION NUMBER(S): [id number] ORDERING CLINICIAN: RHONDA MAJOR TECHNIQUE: Three view(s) [...] MD Electronically signed by: AVERY JACKSON MD [facility] Provider Note - ED v2on 04-28 [...] SIGNS: T PRBP SpO2O2(LPM) %FiO2 Method 07-May-2020 08:22:[id number] 97 MEDICAL DECISION MAKING/ED COURSE MDM/ED COURSE: [...] worked on his ankle and it has killed him. Patient states he has several sprained ankles in the past but they have usually resolve during this time line and that is why he presents for evaluation. Patient denies use of any bwjb-utp-aolprxh medications at home for symptom management has [...] on palpation to the right ankle Integumentary: [place], warm, dry, and Intact. Neurologic: Alert, Oriented, Normal sensory, Normal motor function. Cognition and Speech: Oriented, Speech clear and coherent. Psychiatric: Cooperative, Appropriate mood & affect. Medical Decision Making Course: Worsening Problem: Right ankle pain Data reviewed/analyzed: And x-ray of the right ankle reveals a fracture Risk: Low Problems addressed: 5 Ortho-Glass was used to splint patient's right [...] ill patient: no Electronic Signatures: Rhonda Major (TERMITE CONTROL SERVICER-AVIONICS REPAIR TECHNICIAN) (Signed 07-May-2020 08:56) Authored: HPI, PMH, PE, Results/Vital Signs, MDM/ED Course, Clinical Impression, Attestation, Chart Review, Scores Last Updated: 07-May-2020 08:56 by Rhonda Major (TERMITE CONTROL SERVICER-AVIONICS REPAIR TECHNICIAN) [facility] OBSOLETEon 10-20-2019 OBSOLETE Refill (FAMPWS) -- AKIVIRGINIA Manuel ([id number]) 1975 M Date Time Provider Department 10/20/19 CHANTAL GUNTER During your visit today, we recorded the following information about you: Dorene Meadows Ma 10/22/2019 9:27 AM Signed Last office visit: 08/22/2018 F/u scheduled: no follow up Last refilled: Trazodone #30 with 5 refills on 08/22/18 Dorene Allison APRN.AVIONICS REPAIR TECHNICIAN 10/22/2019 10:59 AM Signed Script sent. Due for an appointment (xwgs-gf-cqfw or virtual). Please let patient know. Neetu Allison APRN.LORENA Calix MA, KRISTI 10/22/2019 11:17 AM Signed Sent message via [...] Encounter Status:Closed by NINI CALIX on 10/22/19 [facility] OBSOLETEon 05-23-2019 OBSOLETE Refill (FAMPWS) -- VIRGINIA PRABHAKAR ([id number]) 1975 M Date Time Provider Department 05/23/19 [facility] today, we recorded the [...] by CHANTAL GUNTER MD on 05/23/19 Normal [facility] Encounters Encounter Date Encounter Type Care Provider Facility Start: 02-06-2025 ambulatory Shoaib Bernard Facility:[facility] Start: 02-06-2025 Evaluation and management of inpatient Shoaib Bernard Facility:[facility] Start: 12-06-2024 End: 12-06-[address] Shoaib Bernard MD Work Phone: -Cat Scan [facility] Start: 12-06-2024 End: 12-06-[address] Shoaib Bernard MD -Cat Scan [facility] Work Phone: Start: 12-06-2024 End: 12-06-2024 ambulatory Shoaib Bernard Facility:[facility] Start: 11-19-2024 End: 11-19-[address] Shoaib Bernard MD Work Phone: -Laboratory [facility] Start: 11-19-2024 End: 11-19-[address] Shoaib Bernard MD -Laboratory [facility] Start: 11-19-2024 End: 11-19-2024 ambulatory Shoaib Bernard Facility:[facility] Start: 06-15-2024 End: 06-15-[address] Shoaib Bernard MD -Cat Scan, [facility] Work Phone: Start: 06-15-2024 End: 06-15-[address] Shoaib Bernard MD Work Phone: [facility] Work Phone: Start: 06-06-2024 Encounter for genera l adult medical examination without abnormal findings Shoaib Bernard [facility] Start: 05-23-2024 End: 05-23-[address] Shoaib Bernard MD Work Phone: [facility] Work Phone: Start: 05-23-2024 End: 05-23-[address] Shoaib Bernard MD -Laboratory, [facility] Start: 05-23-2024 End: 05-23-2024 ambulatory Shoaib Bernard Facility:[facility] Start: 01-28-2023 End: 01-28-2023 ambulatory [facility] Work Phone: Start: 01-28-2023 End: 01-28-2023 Patient encounter procedure [facility]-Laboratory, [facility] Start: 04-06-2022 End: 04-06-2022 ambulatory [facility] Work Phone: Start: 04-06-2022 End: 04-06-2022 Patient encounter procedure [facility]-Laboratory Procedures Date Procedure Procedure Detail Performing Clinician Start: 12-06-2024 CT of thorax with contrast Dr. Shoaib Bernard MD Work Phone: Start: 06-15-[address] Shoaib jovel MD Work Phone: Payers Date Payer Category Payer Self-pay [id number] 2024 Unknown [id number] Medicaid [id number] Unknown ANTHEM [id number] Unknown [id number] Unknown [id number] Unknown [id number] 2.16.8 [id number] Unknown [id number] 2.16.8 [id number] Unknown [id number] 2.16.8 [id number] Unknown [id number] 2.16.8 [id number] Unknown [id number] 2.16.8 [id number] Unknown [id number] 2.16.8 [id number] Social History Date Type Detail Facility Start: 05-08-2021 Tobacco smoking stat [facility] Unknown if ever smoked [facility] Start: 1975 Sex Assigned At Male [facility] Start: 05-08-2021 Tobacco smoking stat [facility] Never smoked tobacco (finding) [facility] Start: 06-06-2024 End: 06-22-2024 Sex Male (finding) [facility] Sex Male [facility] Radiology Diagnostic study note 12-07-2024 Note Date & Type Note Facility 12-07-2024 Radiology Diagnostic study note [facility] Imaging Services [address] [place] [address] [id number] Chest WITH Contrast MR#: [id number] Acct: [id number] Name: VIRGINIA PRABHAKAR Rep #: [id number] : 1975 M 49 From: Marvin Brown MD PCP: Dr. Shoaib Bernard MD Status: REG C Study:Chest WITH Contrast Date of Exam: 12/06/24 Exam# [id number] Ordering Dr: Shoaib Bernard MD PROCEDURE: CHEST [...] examination. 12 month follow-up recommended. Reading Location: [id number] CC: Dr. Shoaib Bernard MD ~ Regulatory Submissions Associate: Signed [facility] Radiology Diagnostic study note 06-15-2024 Note Date & Type Note Facility 06-15-2024 Radiology Diagnostic study note [facility] Imaging Services [address] [place] [id number] Lung Screening MR#: [id number] Acct: [id number] Name: VIRGINIA PRABHAKAR Rep #: [id number] : 1975 M 49 [facility]: Dr. Shoaib Bernard MD Status: TOREY MARINA Study:Low Dose CT Lung Screening Date of Exam : 06/15/24 Exam# [id number] Ordering Dr: Shoaib Bernard MD PROCEDURE: LOW [...] use of iterative reconstruction technique). REFERENCE LINK: [facility] Lung-RADS RADIATION DOSE SUMMARY: DLP: 155.52 mGycm [...] is not enlarged. No sizable pericardial effusion. Irzd-kw-zpalguei coronary artery calcifications. No thoracic adenopathy. Thoracic [...] Lung-RADS Category: 3. Probably benign. Reading Location: [facility] CC: Dr. Shoaib Bernard MD ~ Regulatory Submissions Associate: Signed [facility] Evaluation note Note Date & Type Note Facility Evaluation note No assessment information availa ble [facility] Work Phone: Reason for referral (narrative) Note Date & Type Note Facility Reason for referral (narrative) No reason for referral information available [facility] Work Phone: Summary Purpose Family History No Family History Records FoundNo Family History Records FoundNo Family History Records FoundNo Family History Records Found Advance Directives No Advanced Directives Records Found Advance Directive Response Recorded Date/ Time Living Will No May 08, 2 022 6:26pm Power of Survey Instrument Operator No May 08, 2021 6:26pm Chief Complaint [...] section and content) DATE CREATED AUTHOR 10/22/2019 [facility] DATE CREATED AUTHOR AUTHOR'S ORGANIZ ATJAMES 05/08/2020 [facility] DATE CREATED AUTHOR AUTHOR'S ORGANIZ ATION 05/10/2020 [facility] DATE CREATED AUTHOR AUTHOR'S ORGANIZ ATION 02/07/2025 [facility] Goals (unrecognized section and content) Goals may [...] BE BASED ON THE PRIMARY CLINICAL RECORDS. [employer] provides no warranty or guarantee of the accuracy or completeness of information in this document.
== END | disposition home or self-care (01) ==
LOC: CT 06:17
PROVIDERS: PCP Family Medicine; Referring Provider Surgery; Visit Provider Surgery
DX: K57.20 Diverticulitis of large intestine with perforation and abscess without bleeding (principal)
CPT/HCPCS: 74177; Q9967